=== PATIENT | male | born 1945 | race Caucasian/White ===

== ENCOUNTER 2021-06-03 15:34 | Inpatient (IN) ==
[2021-06-03] MEDS ORDERED: TUSSIONEX PENNKINETIC SUSP PO PRN (16:28)
[2021-06-03] MEDS ORDERED: ACCUNEB 1.25 MG NEBULE ONE (16:44)
[2021-06-03] MEDS: ACCUNEB 1.25 MG NEBULE NEB SCH ×2 (16:45→21:00)
[2021-06-03] MEDS ORDERED: VIBRAMYCIN 100 MG in NS 100 ML IV + SPIKE MINIBAG* 100 ML IV SCH (17:00)
[2021-06-03] MEDS ORDERED: ROCEPHIN 1 GRAM IV PREMIX 1 G/50 ML IV.SOLN. IV SCH (17:00)
[2021-06-03 17:26] LABS: BASOPHILS % (AUTO) 0.3 % (0.2-1.0); EOSINOPHILS # (AUTO) 0.1 x10^3/uL (0.0-0.2); EOSINOPHILS % (AUTO) 0.9 % (0.9-2.9); HEMOGLOBIN 14.5 g/dL (13.5-18.0); LYMPHOCYTES # (AUTO) 0.6 X10^3/uL (1.3-2.9); LYMPHOCYTES % (AUTO) 7.3 % (21.0-51.0); MEAN CORPUSCULAR HEMOGLOBIN 31.4 pg (27.0-34.0); MEAN CORPUSCULAR HGB CONC 33.8 g/dL (33.0-35.0); MEAN CORPUSCULAR VOLUME 92.8 fL (80.0-100.0); MONOCYTES # (AUTO) 0.6 x10^3/uL (0.3-0.8); MONOCYTES % (AUTO) 6.7 % (0.0-13.0); NEUTROPHILS # (AUTO) 7.5 x10^3/uL (2.2-4.8); NEUTROPHILS % (AUTO) 84.8 % (42.0-75.0); PLATELET COUNT 208 X10^3/uL (150.0-450.0); RED BLOOD COUNT 4.63 X10^6/uL (4.7-6.0); RED CELL DISTRIBUTION WIDTH 14.3 % (11.6-16.5); WHITE BLOOD COUNT 8.8 X10^3/uL (3.6-10.0)
[2021-06-03 17:42] LABS: LACTIC ACID 1.7 mmol/L (0.4-2.0)
[2021-06-03 17:52] LABS: ALANINE AMINOTRANSFERASE 26 Units/L (12-78); ALBUMIN 3.1 g/dL (3.4-5.0); ALKALINE PHOSPHATASE 72 Units/L (46-116); ASPARTATE AMINO TRANSFERASE 23 Units/L (15-37); BLOOD UREA NITROGEN 7 mg/dL (7-18); CHLORIDE 102 mmol/L (98-107); COR CA(FOR HYPOALB) 9.7 mg/dL (8.5-10.1); CREATININE 0.79 mg/dL (0.70-1.30); SODIUM 143 mmol/L (136-145); eGFR NON BLACK RACES > 60 (>60)
[2021-06-03 17:53] LABS: CKMB % 4.1 % (<4); CREATINE KINASE 39 Units/L (39-308); CREATINE KINASE MB 1.6 ng/mL (0-4.0); TROPONIN I < 0.02 ng/mL (0-1.5)
[2021-06-03 18:02] VITALS: BMI 16.6
[2021-06-03] MEDS ORDERED: NS 1/2 1000 ML IV 1,000 ML IV ONE (18:13)
[2021-06-03] MEDS: NS 1/2 1000 ML IV 1,000 ML IV SCH (18:15)
[2021-06-03] MEDS: ROBITUSSIN DM PO SCH ×2 (18:15→20:12)
[2021-06-03] MEDS: VSL#3 PO SCH (18:15)
[2021-06-03] MEDS: LEVAQUIN PREMIX IV 750 MG 750 MG/150 ML BAG IV SCH (18:23)
[2021-06-03] MEDS ORDERED: K-RIDER 10 MEQ/NS 100 ML 10 MEQ/100 ML BAG IV PRN (18:28)
[2021-06-03] MEDS ORDERED: MAGNESIUM SULFATE 1 GRAM/100 mL PREMIX 1 G/100 ML BAG IV PRN (18:28)
[2021-06-03] MEDS ORDERED: POTASSIUM CHLORIDE LIQ 20 MEQ UDC PO PRN (18:28)
[2021-06-03] MEDS ORDERED: POTASSIUM CHL 60 MEQ/NS 0.45% 500 ML IV PRN (18:28)
[2021-06-03] MEDS ORDERED: KLOR-CON PO PRN (18:28)
[2021-06-03] MEDS ORDERED: POTASSIUM CHL 40 MEQ/NS 0.45% 500 ML IV PRN (18:28)
[2021-06-03] MEDS ORDERED: MICRO K EXTEN CAP 10 MEQ PO PRN (18:28)
[2021-06-03] MEDS ORDERED: LOVENOX INJ 30 MG SYR SC ONE (19:46)
[2021-06-03] MEDS: LOVENOX INJ 30 MG SYR SC SCH (20:11)
[2021-06-03] MEDS: K-DUR TAB 20 MEQ PO PRN (20:11)
[2021-06-03] MEDS: FORTAZ or TAZICEF VIAL INJ 1 G in NS 100 ML IV + SPIKE MINIBAG* 100 ML IV SCH (20:12)
[2021-06-03] MEDS: MUCOMYST (RESPIRATORY USE ONLY) NEB SCH (21:00)
[2021-06-03] MEDS: PULMICORT NEB TX 0.5 MG NEB SCH (21:00)
[2021-06-03] MEDS ORDERED: MUCOMYST (RESPIRATORY USE ONLY) NEB SCH (21:00)
[2021-06-03] MEDS: TYLENOL 325 MG TAB PO PRN (21:20)
[2021-06-03 22:15] LABS: BILIRUBIN,URINE NEGATIVE (NEGATIVE); BLOOD/HEMOGLOBIN,URINE NEGATIVE (NEGATIVE); GLUCOSE, URINE NEGATIVE (NEGATIVE); KETONES,URINE NEGATIVE (NEGATIVE); LEUKOCYTE ESTERASE ,URINE NEGATIVE (NEGATIVE); NITRITES,URINE NEGATIVE (NEGATIVE); PROTEIN,URINE NEGATIVE (NEGATIVE); UROBILINOGEN,URINE NORMAL (NORMAL)
[2021-06-03 22:18] LABS: APPEARANCE,URINE CLEAR (CLEAR); COLOR,URINE YELLOW (YELLOW)
[2021-06-04 01:41] LABS: CKMB % 3.8 % (<4); CREATINE KINASE 29 Units/L (39-308); CREATINE KINASE MB 1.1 ng/mL (0-4.0); TROPONIN I < 0.02 ng/mL (0-1.5)
[2021-06-04] MEDS ORDERED: NS 1/2 1000 ML IV 1,000 ML IV ONE (05:00)
[2021-06-04] MEDS: FORTAZ or TAZICEF VIAL INJ 1 G in NS 100 ML IV + SPIKE MINIBAG* 100 ML IV SCH ×3 (05:15→21:40)
[2021-06-04] MEDS: NS 1/2 1000 ML IV 1,000 ML IV SCH ×2 (05:15→06:24)
[2021-06-04 05:45] LABS: ALANINE AMINOTRANSFERASE 20 Units/L (12-78); ALBUMIN 2.4 g/dL (3.4-5.0); ALKALINE PHOSPHATASE 57 Units/L (46-116); ASPARTATE AMINO TRANSFERASE 22 Units/L (15-37); BASOPHILS % (AUTO) 0.6 % (0.2-1.0); BLOOD UREA NITROGEN 6 mg/dL (7-18); CALCIUM 8.2 mg/dL (8.5-10.1); CARBON DIOXIDE 34.6 mmol/L (21-32); CHLORIDE 103 mmol/L (98-107); COR CA(FOR HYPOALB) 9.5 mg/dL (8.5-10.1); EOSINOPHILS # (AUTO) 0.1 x10^3/uL (0.0-0.2); EOSINOPHILS % (AUTO) 1.6 % (0.9-2.9); HEMATOCRIT 35.5 % (42.0-54.0); LYMPHOCYTES # (AUTO) 0.6 X10^3/uL (1.3-2.9); LYMPHOCYTES % (AUTO) 10.2 % (21.0-51.0); MEAN CORPUSCULAR HEMOGLOBIN 31.3 pg (27.0-34.0); MEAN CORPUSCULAR HGB CONC 34.2 g/dL (33.0-35.0); MEAN CORPUSCULAR VOLUME 91.6 fL (80.0-100.0); MEAN PLATELET VOLUME 7.9 fL (7.4-11.0); MONOCYTES # (AUTO) 0.5 x10^3/uL (0.3-0.8); MONOCYTES % (AUTO) 8.8 % (0.0-13.0); NEUTROPHILS # (AUTO) 4.7 x10^3/uL (2.2-4.8); NEUTROPHILS % (AUTO) 78.8 % (42.0-75.0); PLATELET COUNT 168 X10^3/uL (150.0-450.0); RED BLOOD COUNT 3.88 X10^6/uL (4.7-6.0); RED CELL DISTRIBUTION WIDTH 14.1 % (11.6-16.5); SODIUM 139 mmol/L (136-145); TOTAL PROTEIN 5.7 g/dL (6.4-8.2); eGFR NON BLACK RACES > 60 (>60)
[2021-06-04] MEDS: MUCOMYST (RESPIRATORY USE ONLY) NEB SCH ×3 (06:05→20:12)
[2021-06-04] MEDS: ACCUNEB 1.25 MG NEBULE NEB SCH ×3 (06:05→20:12)
--- NOTE | 2021-06-04 06:16 | RAD ---
HISTORYPneumoniaSTUDYPortable AP [id number]/2020FINDINGSNormal heart size, pulmonary hyperexpansion. Findings suggest bilateral perihilar infiltrates, the appearance accentuated by significant patient rotation. No dominant mass, lobar consolidation or pleural fluid.IMPRESSIONContinued findings of COPD with suggestion of perihilar infiltrates, left greater than right. Follow-up recommended.Electronically signed by: DAVY OWENS (Jun 04, 2021 06:14:37)
[2021-06-04 06:19] LABS: HEMOGLOBIN 12.1 g/dL (13.5-18.0)
[2021-06-04] MEDS: TYLENOL 325 MG TAB PO PRN (08:15)
[2021-06-04] MEDS: LEVAQUIN PREMIX IV 750 MG 750 MG/150 ML BAG IV SCH (09:13)
[2021-06-04] MEDS: LOVENOX INJ 30 MG SYR SC SCH ×2 (09:14→20:55)
[2021-06-04] MEDS: VSL#3 PO SCH (09:14)
[2021-06-04] MEDS: ROBITUSSIN DM PO SCH ×4 (09:14→20:55)
[2021-06-04 09:37] LABS: CKMB % 4.3 % (<4); CREATINE KINASE 30 Units/L (39-308); CREATINE KINASE MB 1.3 ng/mL (0-4.0); TROPONIN I < 0.02 ng/mL (0-1.5)
[2021-06-04] MEDS: PULMICORT NEB TX 0.5 MG NEB SCH ×2 (09:44→20:12)
[2021-06-04 11:12] LABS: AMYLASE 57 Units/L (25-115); LIPASE 67 Units/L (73-393)
[2021-06-04] MEDS: PROTONIX INJ 40 MG VIAL IVP SCH ×2 (11:19→20:55)
[2021-06-04] MEDS: MORPHINE SULFATE INJ 2 MG INJ IVP PRN ×2 (11:19→20:57)
--- NOTE | 2021-06-04 13:24 | DR.H&P ---
H&P - History & Physical for Day of: H&P Date: 06/03/21 - Chief Complaint Chief Complaint: SEVER MID BACK PAIN, SOB - History of Present Illness History of Present Illness: PT IS 76 WM ADMITTED WITH CO SEVERE MID BACK PAIN. PT STATES HE IS ON HOSPICE FOR COPD, RESP FAILURE. PT DENIES ANY KNOWN CARDIAC DISEASE. PT STATES HE THINKS IT MAY BE HIS GALLBLADDER. PT DENIES ANY FOOD OR DIET CHANGES. DENIES ANY V/D/C. PT HAD COPD WITH ACUTE BRONCHITIS AND PNEUMONIA AT THIS TIME AND HAS TAKEN CIPRO AT HOME WITHOUT IMPROVEMENT. - Past Medical History Past Medical History: Arthritis, COPD - Past Surgical History Surgical History: No History - Family History Family Medical History: Cancer - Social History Does patient currently use any type of tobacco product: No Have you used tobacco products in the last 12 months: No Type of Tobacco Use: Cigarettes Does any household member use tobacco: No Alcohol Use: None Drug Use: None - Medications Home Medications: No Known Drug Allergies Allergy (Verified 06/03/21 17:48) CONTINUE taking the following medications cetirizine 10 mg PO HS 06/04/21 [History] famotidine 40 mg PO BID 06/04/21 [History] finasteride 5 mg PO DAILY 06/04/21 [History] furosemide 20 mg PO DAILY 06/04/21 [History] loratadine 10 mg PO DAILY 06/04/21 [History] tamsulosin 0.4 mg PO HS 06/04/21 [History] theophylline 400 mg PO DAILY 06/04/21 [History] - Review of Systems Constitutional: Weakness Eyes: No Symptoms Reported ENT: No Symptoms Reported Respiratory: Cough, Shortness of Breath Cardiovascular: denies: Edema Gastrointestinal: Nausea Genitourinary: No Symptoms Reported Musculoskeletal: Back Pain Skin: No Symptoms Reported Neurological: No Symptoms Reported - Physical Exam Vital Signs: Temperature 97.5 F Pulse Rate [Left] 89 Pulse Rate 77 Respiratory Rate 21 Blood Pressure [Left Arm] 154/67 Blood Pressure 123/61 O2 Sat by Pulse Oximetry 97 Oriented: Normal Eyes: Normal Ear: Normal Nose: Normal Throat: Dry Respiratory: Diminished Throughout, Rhonchi Throughout Cardiovascular: Normal. negative: Edema Auscultation: Bowel Sounds: Normal Palpation: Normal Tenderness: Epigastric, Mild Skin: Decreased Turgur Musculoskeletal: Back:Thoracic, Back:Lumbar Psychiatric: Anxiety Mood Description: Calm Speech Pattern: Clear, Appropriate - Assessment/Plan (1) Pneumonia Status: Acute Plan: RESP THERAPY, VERIFY HOME MEDICATION. PAIN CONTROL, CT CHEST ABD AND PELVIS. BP MONITORING, EKG AND CARDIAC MONITORING. PPI THERAPY (2) Acute abdominal pain Status: Acute (3) Acute thoracic back pain Status: Acute - Allergies Allergies/Adverse Reactions: Allergies Allergy/AdvReac Type Severity Reaction Status Date / Time No Known Drug Allergies Allergy Verified 06/03/21 17:48
--- NOTE | 2021-06-04 14:04 | CT ---
HISTORYABDOMINAL PAIN, skin cancerSTUDYCT abdomen pelvis without IV contrastCOMPARISONCT 07/1920TECHNIQUEMultiple axial images of the abdomen and pelvis were obtained from the lung bases to the pubic symphysis without the administration of IV contrast. Dose reduction techniques including Automated Exposure Control (AEC) and adjustment of mA and kV were utilized.FINDINGSThe visualized portions of the lung bases suggest COPD and mild atelectasis.The liver and spleen display no abnormalities.Gallbladder appears normal. No biliary ductal dilation.No pancreatic abnormality is seen.The adrenal glands appear normal.Dense renal medulla can be due to hyper osmolality the urine. Papillary necrosis, high caffeine intake, antibiotic therapy are other possible etiologies. Medullary sponge kidney cannot. In a similar fashion. This appearance is similar to prior study. No hydronephrosis or renal stone. Phleboliths are seen in the pelvis. Ureters and bladder appear normal.Prominent right-sided constipation. Mild gaseous distention of the transverse colon with decompressed descending colon and sigmoid colon. An obstructing colonic lesion is not identified. No suggestion of enteritis or colitis. No small bowel dilation but there is mild increased fluid and air in the small bowel. This could be passage of fluid bolus or could be from gastroenteritis. No suggestion of appendicitis.Prostate gland measures 4.5 x 4.3 x 3.6 cm there is mild mass impression upon the base of the urinary bladder. Likely tiny left inguinal hernia containing fat.Abdominal aorta is normal in size. Diffuse atherosclerotic changes are seen in the abdomen and pelvis. Possible hemodynamically significant stenoses are seen in common and external iliac arteries.No suspicious lymphadenopathy.No free intraperitoneal air or fluid is seen.There is 50 percent central and anterior compression deformity of L4 which is a changed appearance since prior study. It could be acute. Slight displacement of the posterior cortex into the central canal and posterior osteophytes at L3-4 cause moderate stenosis. More prominent stenosis is seen at L4-5 due to posterior element hypertrophy and mild spondylolisthesis. Moderate compression deformity of L1 is old. Bones are osteopenic.IMPRESSIONProminent right-sided constipation. Mild gastroenteritis changes are not excluded.Chronic appearance of hyperdense renal medulla that is most likely due to increased urine osmolality. Other etiologies are not excluded.Prominent spondylosis at L4-5. Possibly new, 50 percent compression deformity of L4.Electronically signed by: Adrian Schmitz (Jun 04, 2021 14:01:18)
--- NOTE | 2021-06-04 15:07 | CT ---
HISTORYSOB, COUGH, PAIN IN SHOULDERSSTUDYCT chest with IV contrastCOMPARISONChest x-ray 06/04/2021TECHNIQUEMultiple axial images of the chest were obtained from the thoracic inlet to the upper abdomenwithout the administration of IV contrast. Sagittal and coronal reformations are performed. Dose reduction techniques including Automated Exposure Control (AEC) and adjustment of mA and kV were utilized.FINDINGSMild right apical scarring is seen with slight nodularity that measures 4.0 mm in average axial dimension. Less prominent left apical scarring is seen. Associated with the right major fissure, there is an 8.0 mm nodular density that could be true nodule or atelectasis. Calcified granuloma are seen in the left lung base. In the left pulmonary fissure there is a 7.5 mm nodule as well as 2 other much smaller nodules.There is a mass abutting the medial pleura in the left upper lobe. It measures 6.0 x 3.1 cm. There are increased interstitial densities in the right upper lobe adjacent to this region. This is concerning for interstitial spread of malignancy. Radiation changes could cause a similar appearance.Minimal localized interstitial densities are seen in the right lower lobe. No honeycombing or bronchiectasis is seen. Minimal atelectasis is seen in both CP angles. Trace pleural effusions are seen.Heart and thoracic aorta are normal in size. No mediastinal or hilar lymphadenopathy is seen on this unenhanced study. No adrenal nodule is seen.There are multiple compression fractures. Likely old 25 percent compression deformity of L1 is seen. Likely old 15 percent compression deformity of T11 is seen. Probably old 30 percent compression deformity of T9 is seen. 60 percent compression fracture of T8 is probably old, as is 40 percent compression fracture of T7.Mild central compression deformity of T6 could be recent or old. There is approximately 15 percent loss of height. Greater central compression deformity of T5 is seen with 70 percent loss of height but this is probably old. Mostly healed fracture of the anterior aspect of the left 9th rib is seen anteriorly. Bones are osteopenic.IMPRESSIONLikely multiple osteoporotic compression fractures in the thoracic spine. These are mostly old in appearance but the fracture of T6 could be recent or old.Probable primary lung cancer medially in the left upper lobe of the lungs. Adjacent interstitial densities could be from interstitial spread of malignancy. Radiation changes could cause a similar appearance if patient has had prior radiation to this area.Several other nodular densities in the lungs are indeterminate for metastatic disease.Prominent COPD is seen.Electronically signed by: Adrian Schmitz (Jun 04, 2021 15:05:58)
[2021-06-05] MEDS ORDERED: NS 1/2 1000 ML IV 1,000 ML IV ONE (05:31)
[2021-06-05] MEDS: MUCOMYST (RESPIRATORY USE ONLY) NEB SCH ×3 (05:50→20:45)
[2021-06-05] MEDS: ACCUNEB 1.25 MG NEBULE NEB SCH ×3 (05:50→20:45)
[2021-06-05] MEDS: FORTAZ or TAZICEF VIAL INJ 1 G in NS 100 ML IV + SPIKE MINIBAG* 100 ML IV SCH ×3 (06:28→21:50)
[2021-06-05] MEDS: NS 1/2 1000 ML IV 1,000 ML IV SCH ×2 (06:28→11:09)
[2021-06-05 06:30] LABS: BASOPHILS % (AUTO) 0.5 % (0.2-1.0); EOSINOPHILS # (AUTO) 0.1 x10^3/uL (0.0-0.2); EOSINOPHILS % (AUTO) 1.8 % (0.9-2.9); HEMATOCRIT 34.9 % (42.0-54.0); HEMOGLOBIN 11.8 g/dL (13.5-18.0); LYMPHOCYTES # (AUTO) 0.5 X10^3/uL (1.3-2.9); LYMPHOCYTES % (AUTO) 9.9 % (21.0-51.0); MEAN CORPUSCULAR HEMOGLOBIN 31.1 pg (27.0-34.0); MEAN CORPUSCULAR HGB CONC 33.9 g/dL (33.0-35.0); MEAN CORPUSCULAR VOLUME 91.6 fL (80.0-100.0); MEAN PLATELET VOLUME 8.1 fL (7.4-11.0); MONOCYTES # (AUTO) 0.5 x10^3/uL (0.3-0.8); MONOCYTES % (AUTO) 9.1 % (0.0-13.0); NEUTROPHILS # (AUTO) 4.2 x10^3/uL (2.2-4.8); NEUTROPHILS % (AUTO) 78.7 % (42.0-75.0); PLATELET COUNT 161 X10^3/uL (150.0-450.0); RED BLOOD COUNT 3.81 X10^6/uL (4.7-6.0); WHITE BLOOD COUNT 5.3 X10^3/uL (3.6-10.0)
[2021-06-05 06:41] LABS: ALANINE AMINOTRANSFERASE 18 Units/L (12-78); ALBUMIN 2.3 g/dL (3.4-5.0); ALKALINE PHOSPHATASE 59 Units/L (46-116); ASPARTATE AMINO TRANSFERASE 20 Units/L (15-37); BLOOD UREA NITROGEN 4 mg/dL (7-18); CALCIUM 8.3 mg/dL (8.5-10.1); CARBON DIOXIDE 35.9 mmol/L (21-32); CHLORIDE 101 mmol/L (98-107); COR CA(FOR HYPOALB) 9.7 mg/dL (8.5-10.1); CREATININE 0.54 mg/dL (0.70-1.30); SODIUM 138 mmol/L (136-145); TOTAL PROTEIN 5.4 g/dL (6.4-8.2); eGFR NON BLACK RACES > 60 (>60)
[2021-06-05] MEDS: MORPHINE SULFATE INJ 2 MG INJ IVP PRN ×2 (09:50→20:31)
[2021-06-05] MEDS: PROTONIX INJ 40 MG VIAL IVP SCH ×2 (09:57→21:50)
[2021-06-05] MEDS: LOVENOX INJ 30 MG SYR SC SCH ×2 (09:57→21:49)
[2021-06-05] MEDS: VSL#3 PO SCH (09:58)
[2021-06-05] MEDS: ROBITUSSIN DM PO SCH ×4 (09:58→21:50)
[2021-06-05] MEDS: LEVAQUIN PREMIX IV 750 MG 750 MG/150 ML BAG IV SCH (09:58)
[2021-06-05] MEDS: PULMICORT NEB TX 0.5 MG NEB SCH ×2 (10:40→20:45)
[2021-06-05] MEDS: K-DUR TAB 20 MEQ PO PRN (12:33)
--- NOTE | 2021-06-05 16:32 | PCM.PROG ---
Progress Note Progress Note for Day of Date of Exam: 06/05/21 Subjective Subjective: Feels better. Breathing better. Past Medical Family Social History Past Med/Fam/Surg Hx: No changes since H&P Allergies: Allergies No Known Drug Allergies Allergy (Verified 06/03/21 17:48) Review of Systems ROS: No change since H&P Vital Signs and I&O's Vital Signs: Temperature 98.2 F Pulse Rate [Left] 82 Pulse Rate 79 Respiratory Rate 22 Blood Pressure [Left Arm] 106/65 Blood Pressure 123/61 O2 Sat by Pulse Oximetry 96 Intake and Output: Intake & Output 06/03/21 06/04/21 06/05/21 06/06/21 11:59 11:59 11:59 11:59 Intake Total 1295 / 1295 3092 / 3092 Balance 1295 / 1295 3092 / 3092 Physical Exam Oriented: Normal Eyes: Normal Throat: Dry Cardiovascular: Normal; negative Edema Auscultation: Bowel Sounds: Normal Tenderness: Epigastric and Mild Skin: Decreased Turgur Musculoskeletal: Back:Thoracic and Back:Lumbar Psychiatric: Anxiety Mood Description: Calm Speech Pattern: Clear and Appropriate Laboratory and Diagnostics Result Diagrams: 06/05/21 05:42 06/05/21 05:42 Labs: 06/03/21 16:59 Blood Blood Culture - Preliminary 06/03/21 16:54 Blood Blood Culture - Preliminary 06/03/21 16:33 Sputum - Expectorated Sputum Sputum Culture - Final 06/03/21 16:33 Sputum - Expectorated Sputum - Final Laboratory WBC 5.3 X10^3/uL (3.6-10.0) 06/05/21 05:42 RBC 3.81 X10^6/uL (4.7-6.0) L 06/05/21 05:42 Hgb 11.8 g/dL (13.5-18.0) L 06/05/21 05:42 Hct 34.9 % (42.0-54.0) L 06/05/21 05:42 MCV 91.6 fL (80.0-100.0) 06/05/21 05:42 MCH 31.1 pg (27.0-34.0) 06/05/21 05:42 MCHC 33.9 g/dL (33.0-35.0) 06/05/21 05:42 RDW 14.0 % (11.6-16.5) 06/05/21 05:42 Plt Count 161 X10^3/uL (150.0-450.0) 06/05/21 05:42 MPV 8.1 fL (7.4-11.0) 06/05/21 05:42 Neut % (Auto) 78.7 % (42.0-75.0) H 06/05/21 05:42 Lymph % (Auto) 9.9 % (21.0-51.0) L 06/05/21 05:42 [place] % (Auto) 9.1 % (0.0-13.0) 06/05/21 05:42 Eos % (Auto) 1.8 % (0.9-2.9) 06/05/21 05:42 Baso % (Auto) 0.5 % (0.2-1.0) 06/05/21 05:42 Neut # (Auto) 4.2 x10^3/uL (2.2-4.8) 06/05/21 05:42 Lymph # (Auto) 0.5 X10^3/uL (1.3-2.9) L 06/05/21 05:42 [place] # (Auto) 0.5 x10^3/uL (0.3-0.8) 06/05/21 05:42 Eos # (Auto) 0.1 x10^3/uL (0.0-0.2) 06/05/21 05:42 Baso # (Auto) 0.0 X10^3/uL (0.0-0.1) 06/05/21 05:42 Absolute Nucleated RBC 0.1 /100WBC 06/05/21 05:42 PT 12.3 SECONDS (11.8-14.3) 06/03/21 16:54 INR Target Range - 06/03/21 16:54 INR 0.96 (0.8-1.3) 06/03/21 16:54 Sodium 138 mmol/L (136-145) 06/05/21 05:42 Corrected Sodium TNP 06/05/21 05:42 Potassium 3.5 mmol/L (3.5-5.1) 06/05/21 05:42 Chloride 101 mmol/L (98-107) 06/05/21 05:42 Carbon Dioxide 35.9 mmol/L (21-32) H 06/05/21 05:42 BUN 4 mg/dL (7-18) L 06/05/21 05:42 Creatinine 0.54 mg/dL (0.70-1.30) L 06/05/21 05:42 Est GFR (MDRD) Af Amer > 60 (>60) 06/05/21 05:42 Est GFR (MDRD) Non-Af > 60 (>60) 06/05/21 05:42 Glucose 77 mg/dL (65-99) 06/05/21 05:42 Lactic Acid 1.7 mmol/L (0.4-2.0) 06/03/21 16:54 Calcium 8.3 mg/dL (8.5-10.1) L 06/05/21 05:42 Corrected Calcium 9.7 mg/dL (8.5-10.1) 06/05/21 05:42 Magnesium 2.0 mg/dL (1.7-2.9) 06/04/21 05:23 Total Bilirubin 0.20 mg/dL (0.2-1.0) 06/05/21 05:42 AST 20 Units/L (15-37) 06/05/21 05:42 ALT 18 Units/L (12-78) 06/05/21 05:42 Alkaline Phosphatase 59 Units/L (46-116) 06/05/21 05:42 Creatine Kinase 30 Units/L (39-308) L 06/04/21 09:09 CK-MB (CK-2) 1.3 ng/mL (0-4.0) 06/04/21 09:09 CK/CKMB % Calc 4.3 % (<4) 06/04/21 09:09 Troponin I < 0.02 ng/mL (0-1.5) 06/04/21 09:09 Total Protein 5.4 g/dL (6.4-8.2) L 06/05/21 05:42 Albumin 2.3 g/dL (3.4-5.0) L 06/05/21 05:42 Globulin 3.1 g/dL (2.5-4.5) 06/05/21 05:42 Albumin/Globulin Ratio 0.7 Ratio (1.1-2.1) L 06/05/21 05:42 Amylase 57 Units/L (25-115) 06/04/21 09:09 Lipase 67 Units/L (73-393) L 06/04/21 09:09 Specimen Type Clean catch urine 06/03/21 21:40 Urine Color Yellow (YELLOW) 06/03/21 21:40 Urine Appearance Clear (CLEAR) 06/03/21 21:40 Urine pH 5.0 (5.0 - 8.0) 06/03/21 21:40 Ur Specific [place] 1.020 (1.000-1.030) 06/03/21 21:40 Urine Protein Negative (NEGATIVE) 06/03/21 21:40 Urine Glucose (UA) Negative (NEGATIVE) 06/03/21 21:40 Urine Ketones Negative (NEGATIVE) 06/03/21 21:40 Urine Occult Blood Negative (NEGATIVE) 06/03/21 21:40 Urine Nitrite Negative (NEGATIVE) 06/03/21 21:40 Urine Bilirubin Negative (NEGATIVE) 06/03/21 21:40 Urine Urobilinogen Normal (NORMAL) 06/03/21 21:40 Ur Leukocyte Esterase Negative (NEGATIVE) 06/03/21 21:40 Radiology Reviewed: Yes Plan (1) Pneumonia: Status: Acute Plan: Continue Fortaz and Levaquin. CXR in am. (2) Lung nodules: Status: Acute Narrative Support Text: Possible Primary Lung cancer with possible mets. Plan: Patient and his family informed. They will discuss with Dr. Rios. (3) Acute abdominal pain: Status: Acute (4) Acute thoracic back pain: Status: Acute
[2021-06-05] MEDS: COLACE CAP 100 MG PO SCH (21:49)
[2021-06-05] MEDS: MILK OF MAGNESIA PO SCH (21:50)
[2021-06-06] MEDS ORDERED: NS 1/2 1000 ML IV 1,000 ML IV ONE ×2 (02:41→21:40)
[2021-06-06] MEDS: NS 1/2 1000 ML IV 1,000 ML IV SCH ×3 (03:13→22:39)
[2021-06-06] MEDS: ACCUNEB 1.25 MG NEBULE NEB SCH ×3 (05:52→20:52)
[2021-06-06] MEDS: MUCOMYST (RESPIRATORY USE ONLY) NEB SCH ×3 (05:52→20:52)
[2021-06-06] MEDS: FORTAZ or TAZICEF VIAL INJ 1 G in NS 100 ML IV + SPIKE MINIBAG* 100 ML IV SCH ×3 (05:52→21:34)
[2021-06-06 06:54] LABS: BASOPHILS % (AUTO) 0.4 % (0.2-1.0); EOSINOPHILS # (AUTO) 0.1 x10^3/uL (0.0-0.2); EOSINOPHILS % (AUTO) 1.9 % (0.9-2.9); HEMOGLOBIN 11.7 g/dL (13.5-18.0); LYMPHOCYTES # (AUTO) 0.6 X10^3/uL (1.3-2.9); LYMPHOCYTES % (AUTO) 12.5 % (21.0-51.0); MEAN CORPUSCULAR HGB CONC 33.5 g/dL (33.0-35.0); MEAN CORPUSCULAR VOLUME 92.7 fL (80.0-100.0); MEAN PLATELET VOLUME 8.1 fL (7.4-11.0); MONOCYTES # (AUTO) 0.5 x10^3/uL (0.3-0.8); NEUTROPHILS # (AUTO) 3.6 x10^3/uL (2.2-4.8); NEUTROPHILS % (AUTO) 75.2 % (42.0-75.0); PLATELET COUNT 158 X10^3/uL (150.0-450.0); RED BLOOD COUNT 3.78 X10^6/uL (4.7-6.0); RED CELL DISTRIBUTION WIDTH 13.9 % (11.6-16.5); WHITE BLOOD COUNT 4.8 X10^3/uL (3.6-10.0)
[2021-06-06 07:06] LABS: ALANINE AMINOTRANSFERASE 17 Units/L (12-78); ALBUMIN 2.2 g/dL (3.4-5.0); ALKALINE PHOSPHATASE 59 Units/L (46-116); ASPARTATE AMINO TRANSFERASE 23 Units/L (15-37); BLOOD UREA NITROGEN 4 mg/dL (7-18); CALCIUM 8.2 mg/dL (8.5-10.1); CARBON DIOXIDE 36.8 mmol/L (21-32); CHLORIDE 101 mmol/L (98-107); COR CA(FOR HYPOALB) 9.6 mg/dL (8.5-10.1); CREATININE 0.48 mg/dL (0.70-1.30); SODIUM 139 mmol/L (136-145); TOTAL PROTEIN 5.3 g/dL (6.4-8.2); eGFR NON BLACK RACES > 60 (>60)
--- NOTE | 2021-06-06 07:10 | RAD ---
HISTORYCOPD EXACSTUDYCHEST, 1 [id number]/08/2021FINDINGSThe cardiomediastinal silhouette is stable. Chronic appearing interstitial markings. Faint bibasilar airspace opacities. The bony thorax appears intact.IMPRESSIONBibasilar airspace opacities which may reflect is atelectasis or pneumonia.Electronically signed by: ALVIN MOHR (Jun 06, 2021 07:08:19)
[2021-06-06] MEDS: PULMICORT NEB TX 0.5 MG NEB SCH ×2 (08:15→20:52)
[2021-06-06] MEDS: LEVAQUIN PREMIX IV 750 MG 750 MG/150 ML BAG IV SCH (09:30)
[2021-06-06] MEDS: LOVENOX INJ 30 MG SYR SC SCH ×2 (09:30→21:42)
[2021-06-06] MEDS: PROTONIX INJ 40 MG VIAL IVP SCH ×2 (09:30→21:34)
[2021-06-06] MEDS: MILK OF MAGNESIA PO SCH ×2 (09:30→21:33)
[2021-06-06] MEDS: ROBITUSSIN DM PO SCH ×4 (09:30→21:34)
[2021-06-06] MEDS: VSL#3 PO SCH (09:30)
[2021-06-06] MEDS: MORPHINE SULFATE INJ 2 MG INJ IVP PRN ×2 (12:56→21:34)
--- NOTE | 2021-06-06 14:23 | PCM.PROG ---
Progress Note Progress Note for Day of Date of Exam: 06/06/21 Subjective Subjective: Feels better. Breathing better. No new complaints. Past Medical Family Social History Past Med/Fam/Surg Hx: No changes since H&P Allergies: Allergies No Known Drug Allergies Allergy (Verified 06/03/21 17:48) Review of Systems ROS: No change since H&P Vital Signs and I&O's Vital Signs: Temperature 98.5 F Pulse Rate [Left] 82 Pulse Rate 69 Respiratory Rate 26 Blood Pressure [Left Arm] 102/55 Blood Pressure 123/61 O2 Sat by Pulse Oximetry 96 Intake and Output: Intake & Output 06/04/21 06/05/21 06/06/21 06/07/21 11:59 11:59 11:59 11:59 Intake Total 1295 / 1295 3092 / 3092 1536 / 1536 Balance 1295 / 1295 3092 / 3092 1536 / 1536 Physical Exam Oriented: Normal Eyes: Normal Respiratory: Generalized and Rhonchi Cardiovascular: Normal; negative Edema Auscultation: Bowel Sounds: Normal Tenderness: Epigastric and Mild Skin: Decreased Turgur Musculoskeletal: Back:Thoracic and Back:Lumbar Psychiatric: Anxiety Mood Description: Calm Speech Pattern: Clear and Appropriate Laboratory and Diagnostics Result Diagrams: 06/06/21 05:40 06/06/21 05:40 Labs: 06/03/21 16:59 Blood Blood Culture - Preliminary 06/03/21 16:54 Blood Blood Culture - Preliminary 06/03/21 16:33 Sputum - Expectorated Sputum Sputum Culture - Final 06/03/21 16:33 Sputum - Expectorated Sputum - Final Laboratory WBC 4.8 X10^3/uL (3.6-10.0) 06/06/21 05:40 RBC 3.78 X10^6/uL (4.7-6.0) L 06/06/21 05:40 Hgb 11.7 g/dL (13.5-18.0) L 06/06/21 05:40 Hct 35.0 % (42.0-54.0) L 06/06/21 05:40 MCV 92.7 fL (80.0-100.0) 06/06/21 05:40 MCH 31.0 pg (27.0-34.0) 06/06/21 05:40 MCHC 33.5 g/dL (33.0-35.0) 06/06/21 05:40 RDW 13.9 % (11.6-16.5) 06/06/21 05:40 Plt Count 158 X10^3/uL (150.0-450.0) 06/06/21 05:40 MPV 8.1 fL (7.4-11.0) 06/06/21 05:40 Neut % (Auto) 75.2 % (42.0-75.0) H 06/06/21 05:40 Lymph % (Auto) 12.5 % (21.0-51.0) L 06/06/21 05:40 [place] % (Auto) 10.0 % (0.0-13.0) 06/06/21 05:40 Eos % (Auto) 1.9 % (0.9-2.9) 06/06/21 05:40 Baso % (Auto) 0.4 % (0.2-1.0) 06/06/21 05:40 Neut # (Auto) 3.6 x10^3/uL (2.2-4.8) 06/06/21 05:40 Lymph # (Auto) 0.6 X10^3/uL (1.3-2.9) L 06/06/21 05:40 [place] # (Auto) 0.5 x10^3/uL (0.3-0.8) 06/06/21 05:40 Eos # (Auto) 0.1 x10^3/uL (0.0-0.2) 06/06/21 05:40 Baso # (Auto) 0.0 X10^3/uL (0.0-0.1) 06/06/21 05:40 Absolute Nucleated RBC 0.0 /100WBC 06/06/21 05:40 PT 12.3 SECONDS (11.8-14.3) 06/03/21 16:54 INR Target Range - 06/03/21 16:54 INR 0.96 (0.8-1.3) 06/03/21 16:54 Sodium 139 mmol/L (136-145) 06/06/21 05:40 Corrected Sodium TNP 06/06/21 05:40 Potassium 3.7 mmol/L (3.5-5.1) 06/06/21 05:40 Chloride 101 mmol/L (98-107) 06/06/21 05:40 Carbon Dioxide 36.8 mmol/L (21-32) H 06/06/21 05:40 BUN 4 mg/dL (7-18) L 06/06/21 05:40 Creatinine 0.48 mg/dL (0.70-1.30) L 06/06/21 05:40 Est GFR (MDRD) Af Amer > 60 (>60) 06/06/21 05:40 Est GFR (MDRD) Non-Af > 60 (>60) 06/06/21 05:40 Glucose 76 mg/dL (65-99) 06/06/21 05:40 Lactic Acid 1.7 mmol/L (0.4-2.0) 06/03/21 16:54 Calcium 8.2 mg/dL (8.5-10.1) L 06/06/21 05:40 Corrected Calcium 9.6 mg/dL (8.5-10.1) 06/06/21 05:40 Magnesium 2.0 mg/dL (1.7-2.9) 06/04/21 05:23 Total Bilirubin 0.30 mg/dL (0.2-1.0) 06/06/21 05:40 AST 23 Units/L (15-37) 06/06/21 05:40 ALT 17 Units/L (12-78) 06/06/21 05:40 Alkaline Phosphatase 59 Units/L (46-116) 06/06/21 05:40 Creatine Kinase 30 Units/L (39-308) L 06/04/21 09:09 CK-MB (CK-2) 1.3 ng/mL (0-4.0) 06/04/21 09:09 CK/CKMB % Calc 4.3 % (<4) 06/04/21 09:09 Troponin I < 0.02 ng/mL (0-1.5) 06/04/21 09:09 Total Protein 5.3 g/dL (6.4-8.2) L 06/06/21 05:40 Albumin 2.2 g/dL (3.4-5.0) L 06/06/21 05:40 Globulin 3.1 g/dL (2.5-4.5) 06/06/21 05:40 Albumin/Globulin Ratio 0.7 Ratio (1.1-2.1) L 06/06/21 05:40 Amylase 57 Units/L (25-115) 06/04/21 09:09 Lipase 67 Units/L (73-393) L 06/04/21 09:09 Specimen Type Clean catch urine 06/03/21 21:40 Urine Color Yellow (YELLOW) 06/03/21 21:40 Urine Appearance Clear (CLEAR) 06/03/21 21:40 Urine pH 5.0 (5.0 - 8.0) 06/03/21 21:40 Ur Specific [place] 1.020 (1.000-1.030) 06/03/21 21:40 Urine Protein Negative (NEGATIVE) 06/03/21 21:40 Urine Glucose (UA) Negative (NEGATIVE) 06/03/21 21:40 Urine Ketones Negative (NEGATIVE) 06/03/21 21:40 Urine Occult Blood Negative (NEGATIVE) 06/03/21 21:40 Urine Nitrite Negative (NEGATIVE) 06/03/21 21:40 Urine Bilirubin Negative (NEGATIVE) 06/03/21 21:40 Urine Urobilinogen Normal (NORMAL) 06/03/21 21:40 Ur Leukocyte Esterase Negative (NEGATIVE) 06/03/21 21:40 Radiology Reviewed: Yes Plan (1) Pneumonia: Status: Acute Plan: Continue Fortaz and Levaquin. CXR in am. (2) Lung nodules: Status: Acute Narrative Support Text: The CT scan favors a primary Lung cancer diagnosis with possible mets. Plan: Patient and his family informed. They will discuss with Dr. Rios. (3) Acute abdominal pain: Status: Acute (4) Acute thoracic back pain: Status: Acute
[2021-06-06] MEDS: COLACE CAP 100 MG PO SCH (21:33)
[2021-06-07] MEDS: MORPHINE SULFATE INJ 2 MG INJ IVP PRN (05:57)
[2021-06-07] MEDS: NS 1/2 1000 ML IV 1,000 ML IV SCH ×2 (05:57→20:05)
[2021-06-07] MEDS: MUCOMYST (RESPIRATORY USE ONLY) NEB SCH ×3 (06:13→20:28)
[2021-06-07] MEDS: ACCUNEB 1.25 MG NEBULE NEB SCH ×3 (06:13→20:28)
[2021-06-07] MEDS: FORTAZ or TAZICEF VIAL INJ 1 G in NS 100 ML IV + SPIKE MINIBAG* 100 ML IV SCH ×3 (06:37→21:08)
[2021-06-07 06:41] LABS: BASOPHILS % (AUTO) 0.6 % (0.2-1.0); EOSINOPHILS # (AUTO) 0.1 x10^3/uL (0.0-0.2); EOSINOPHILS % (AUTO) 2.3 % (0.9-2.9); HEMOGLOBIN 11.8 g/dL (13.5-18.0); LYMPHOCYTES # (AUTO) 0.8 X10^3/uL (1.3-2.9); LYMPHOCYTES % (AUTO) 18.5 % (21.0-51.0); MEAN CORPUSCULAR HGB CONC 33.8 g/dL (33.0-35.0); MEAN CORPUSCULAR VOLUME 91.8 fL (80.0-100.0); MEAN PLATELET VOLUME 7.7 fL (7.4-11.0); MONOCYTES # (AUTO) 0.5 x10^3/uL (0.3-0.8); MONOCYTES % (AUTO) 11.2 % (0.0-13.0); NEUTROPHILS % (AUTO) 67.4 % (42.0-75.0); PLATELET COUNT 170 X10^3/uL (150.0-450.0); RED BLOOD COUNT 3.81 X10^6/uL (4.7-6.0); WHITE BLOOD COUNT 4.5 X10^3/uL (3.6-10.0)
[2021-06-07 06:51] LABS: ALANINE AMINOTRANSFERASE 20 Units/L (12-78); ALBUMIN 2.3 g/dL (3.4-5.0); ALKALINE PHOSPHATASE 60 Units/L (46-116); ASPARTATE AMINO TRANSFERASE 27 Units/L (15-37); BLOOD UREA NITROGEN 4 mg/dL (7-18); CALCIUM 8.2 mg/dL (8.5-10.1); CHLORIDE 102 mmol/L (98-107); COR CA(FOR HYPOALB) 9.6 mg/dL (8.5-10.1); CREATININE 0.48 mg/dL (0.70-1.30); SODIUM 138 mmol/L (136-145); TOTAL PROTEIN 5.4 g/dL (6.4-8.2); eGFR NON BLACK RACES > 60 (>60)
[2021-06-07] MEDS: MILK OF MAGNESIA PO SCH ×3 (08:34→23:23)
[2021-06-07] MEDS: ROBITUSSIN DM PO SCH ×4 (08:34→21:08)
[2021-06-07] MEDS: PROTONIX INJ 40 MG VIAL IVP SCH ×2 (08:34→21:08)
[2021-06-07] MEDS: VSL#3 PO SCH (08:34)
[2021-06-07] MEDS: LEVAQUIN PREMIX IV 750 MG 750 MG/150 ML BAG IV SCH (08:34)
[2021-06-07] MEDS: LOVENOX INJ 30 MG SYR SC SCH ×2 (08:49→21:08)
[2021-06-07] MEDS: PULMICORT NEB TX 0.5 MG NEB SCH ×2 (08:52→20:28)
[2021-06-07] MEDS ORDERED: ULTRAM PO PRN (10:25)
[2021-06-07] MEDS ORDERED: NS 1/2 1000 ML IV 1,000 ML IV ONE (19:39)
[2021-06-07] MEDS: TORADOL 30 MG VIAL IVP PRN (20:03)
[2021-06-07] MEDS: COLACE CAP 100 MG PO SCH (21:07)
[2021-06-07] MEDS: MIRALAX POWDER (1 DOSE 17 G) PO SCH ×2 (21:21→23:24)
[2021-06-08] MEDS: FORTAZ or TAZICEF VIAL INJ 1 G in NS 100 ML IV + SPIKE MINIBAG* 100 ML IV SCH ×3 (05:42→20:45)
[2021-06-08 05:43] LABS: ABG BASE EXCESS 12.3 mmol/L (-2.0-2.0)
[2021-06-08 05:45] LABS: ABG ALLEN TEST POS; ABG HCO3 38.7 mmol/L (22-26)
[2021-06-08] MEDS: MUCOMYST (RESPIRATORY USE ONLY) NEB SCH ×3 (05:54→20:26)
[2021-06-08] MEDS: ACCUNEB 1.25 MG NEBULE NEB SCH ×3 (05:54→20:26)
[2021-06-08 06:18] LABS: BASOPHILS % (AUTO) 0.9 % (0.2-1.0); EOSINOPHILS # (AUTO) 0.1 x10^3/uL (0.0-0.2); EOSINOPHILS % (AUTO) 3.9 % (0.9-2.9); HEMATOCRIT 34.5 % (42.0-54.0); HEMOGLOBIN 11.6 g/dL (13.5-18.0); LYMPHOCYTES # (AUTO) 0.6 X10^3/uL (1.3-2.9); LYMPHOCYTES % (AUTO) 18.3 % (21.0-51.0); MEAN CORPUSCULAR HEMOGLOBIN 31.4 pg (27.0-34.0); MEAN CORPUSCULAR HGB CONC 33.8 g/dL (33.0-35.0); MEAN PLATELET VOLUME 7.7 fL (7.4-11.0); MONOCYTES # (AUTO) 0.4 x10^3/uL (0.3-0.8); MONOCYTES % (AUTO) 12.4 % (0.0-13.0); NEUTROPHILS # (AUTO) 2.2 x10^3/uL (2.2-4.8); NEUTROPHILS % (AUTO) 64.5 % (42.0-75.0); PLATELET COUNT 144 X10^3/uL (150.0-450.0); RED CELL DISTRIBUTION WIDTH 13.8 % (11.6-16.5); WHITE BLOOD COUNT 3.4 X10^3/uL (3.6-10.0)
--- NOTE | 2021-06-08 06:28 | RAD ---
HISTORYPNEUMONIASTUDYCHEST, 1 [id number]/10/2021.TECHNIQUEAP view of the chestFINDINGSCardiac and mediastinal contours are within normal limits. Lungs are hyperexpanded with stable bibasilar opacities. No definite pleural effusion or pneumothorax. Stable biapical pleural parenchymal scarring.IMPRESSIONCOPD with stable bibasilar opacities suspicious for pneumonia.Electronically signed by: Von Stratton (Jun 08, 2021 06:27:16)
[2021-06-08 06:40] LABS: ALANINE AMINOTRANSFERASE 21 Units/L (12-78); ALBUMIN 2.1 g/dL (3.4-5.0); ALKALINE PHOSPHATASE 60 Units/L (46-116); ASPARTATE AMINO TRANSFERASE 28 Units/L (15-37); BLOOD UREA NITROGEN 3 mg/dL (7-18); CALCIUM 8.2 mg/dL (8.5-10.1); CARBON DIOXIDE 35.7 mmol/L (21-32); CHLORIDE 100 mmol/L (98-107); COR CA(FOR HYPOALB) 9.7 mg/dL (8.5-10.1); CREATININE 0.45 mg/dL (0.70-1.30); SODIUM 138 mmol/L (136-145); eGFR NON BLACK RACES > 60 (>60)
[2021-06-08] MEDS: LEVAQUIN PREMIX IV 750 MG 750 MG/150 ML BAG IV SCH (08:29)
[2021-06-08] MEDS: LOVENOX INJ 30 MG SYR SC SCH ×2 (08:29→20:45)
[2021-06-08] MEDS: PROTONIX INJ 40 MG VIAL IVP SCH ×2 (08:30→20:45)
[2021-06-08] MEDS: ROBITUSSIN DM PO SCH ×4 (08:30→20:45)
[2021-06-08] MEDS: VSL#3 PO SCH (08:30)
[2021-06-08] MEDS: MILK OF MAGNESIA PO SCH (08:30)
[2021-06-08] MEDS: MORPHINE SULFATE INJ 2 MG INJ IVP PRN (08:32)
[2021-06-08] MEDS: PULMICORT NEB TX 0.5 MG NEB SCH ×2 (09:10→20:26)
[2021-06-08] MEDS: NS 1/2 1000 ML IV 1,000 ML IV SCH ×2 (09:15→16:23)
[2021-06-08] MEDS: CELEBREX PO SCH ×2 (12:09→20:30)
[2021-06-08] MEDS ORDERED: NS 1/2 1000 ML IV 1,000 ML IV ONE (16:12)
[2021-06-08] MEDS: COLACE CAP 100 MG PO SCH (20:45)
[2021-06-08] MEDS: TORADOL 30 MG VIAL IVP PRN (22:05)
[2021-06-09] MEDS: MILK OF MAGNESIA PO SCH ×3 (00:40→20:45)
[2021-06-09] MEDS: MIRALAX POWDER (1 DOSE 17 G) PO SCH ×2 (00:40→20:45)
[2021-06-09] MEDS: FORTAZ or TAZICEF VIAL INJ 1 G in NS 100 ML IV + SPIKE MINIBAG* 100 ML IV SCH ×3 (05:10→22:08)
[2021-06-09] MEDS: MUCOMYST (RESPIRATORY USE ONLY) NEB SCH ×2 (05:29→20:27)
[2021-06-09] MEDS: ACCUNEB 1.25 MG NEBULE NEB SCH ×3 (05:29→20:27)
--- NOTE | 2021-06-09 05:51 | RAD ---
PROCEDURE: Chest X-ray 1 View .HISTORY: Dyspnea.TECHNIQUE: AP view.COMPARISON: 06/08/2021.TECHNICAL QUALITY: Satisfactory .FINDINGS:Micro cardia related to patient's emphysema.Normal central vascularity.Bibasilar consolidation mildly increased compared to previous study. Unchanged hyper expansion and hyperlucency of the lungs. No pleural fluid or pneumothorax.IMPRESSION:1. Mild increase in bibasilar pneumonia.2. COPD.Electronically signed by: Eduardo Mckinney (Jun 09, 2021 05:49:42)
[2021-06-09 06:18] LABS: BASOPHILS % (AUTO) 0.3 % (0.2-1.0); EOSINOPHILS # (AUTO) 0.2 x10^3/uL (0.0-0.2); EOSINOPHILS % (AUTO) 4.8 % (0.9-2.9); HEMATOCRIT 33.8 % (42.0-54.0); HEMOGLOBIN 11.4 g/dL (13.5-18.0); LYMPHOCYTES # (AUTO) 0.5 X10^3/uL (1.3-2.9); LYMPHOCYTES % (AUTO) 14.9 % (21.0-51.0); MEAN CORPUSCULAR HEMOGLOBIN 31.3 pg (27.0-34.0); MEAN CORPUSCULAR HGB CONC 33.8 g/dL (33.0-35.0); MEAN CORPUSCULAR VOLUME 92.5 fL (80.0-100.0); MEAN PLATELET VOLUME 7.9 fL (7.4-11.0); MONOCYTES # (AUTO) 0.4 x10^3/uL (0.3-0.8); MONOCYTES % (AUTO) 10.7 % (0.0-13.0); NEUTROPHILS # (AUTO) 2.4 x10^3/uL (2.2-4.8); NEUTROPHILS % (AUTO) 69.3 % (42.0-75.0); PLATELET COUNT 156 X10^3/uL (150.0-450.0); RED BLOOD COUNT 3.66 X10^6/uL (4.7-6.0); RED CELL DISTRIBUTION WIDTH 13.7 % (11.6-16.5); WHITE BLOOD COUNT 3.5 X10^3/uL (3.6-10.0)
[2021-06-09 06:32] LABS: ALANINE AMINOTRANSFERASE 19 Units/L (12-78); ALKALINE PHOSPHATASE 61 Units/L (46-116); ASPARTATE AMINO TRANSFERASE 24 Units/L (15-37); BLOOD UREA NITROGEN 4 mg/dL (7-18); CALCIUM 8.2 mg/dL (8.5-10.1); CARBON DIOXIDE 35.8 mmol/L (21-32); CHLORIDE 102 mmol/L (98-107); COR CA(FOR HYPOALB) 9.8 mg/dL (8.5-10.1); CREATININE 0.43 mg/dL (0.70-1.30); SODIUM 140 mmol/L (136-145); TOTAL PROTEIN 4.8 g/dL (6.4-8.2); eGFR NON BLACK RACES > 60 (>60)
[2021-06-09] MEDS: NS 1/2 1000 ML IV 1,000 ML IV SCH ×2 (07:20→12:40)
[2021-06-09] MEDS: LOVENOX INJ 30 MG SYR SC SCH ×2 (08:47→20:44)
[2021-06-09] MEDS: CELEBREX PO SCH ×2 (08:47→20:44)
[2021-06-09] MEDS: LEVAQUIN PREMIX IV 750 MG 750 MG/150 ML BAG IV SCH (08:47)
[2021-06-09] MEDS: ROBITUSSIN DM PO SCH ×4 (08:48→20:45)
[2021-06-09] MEDS: VSL#3 PO SCH (08:48)
[2021-06-09] MEDS: PROTONIX INJ 40 MG VIAL IVP SCH ×2 (08:48→20:45)
[2021-06-09] MEDS: TORADOL 30 MG VIAL IVP PRN (09:14)
[2021-06-09] MEDS: TORADOL 30 MG VIAL IVP SCH ×2 (10:30→17:15)
[2021-06-09] MEDS ORDERED: NS 1/2 1000 ML IV 1,000 ML IV ONE (10:47)
--- NOTE | 2021-06-09 12:51 | PCM.PROG ---
Progress Note - Progress Note for Day of Date of Exam: 06/07/21 - Subjective Subjective: WAS ADMITTED FOR TREATMENT OF PNEUMONIA, ACUTE ABDOMINAL PAIN, AND ACUTE THORACIC BACK PAIN. HE IS CURRENTLY UNDER HOSPICE CARE FOR COPD, EMPHYSEMA, AND RESPIRATORY FAILURE AT HOME. HE HAS BEEN TAKING CIPRO AT HOME FOR TREATMENT OF PNEUMONIA WITHOUT IMPROVEMENT IN SYMPTOMS. HE IS A FORMER SMOKER. TODAY, HE IS ALERT AND ORIENTED, LYING IN BED ON MORNING ROUNDS. HE CONTINUES WITH COMPLAINTS OF COUGH AND SHORTNESS OF BREATH. HE ALSO CONTINUES WITH MID- BACK PAIN AND EPIGASTRIC PAIN. ON EXAMINATION, HEART IS REGULAR IN RATE AND RHYTHM. BILATERAL LUNGS ARE NOTED WITH EXPIRATORY WHEEZING THROUGHOUT. ABDOMEN IS ROUND, SOFT, AND NOTED WITH EPIGASTRIC TENDERNESS TO PALPATION. THERE IS TENDERNESS TO THE T-SPINE ON PALPATION. BILATERAL LOWER EXTREMITIES NOTED WITH TRACE EDEMA. HIS VITALS THIS MORNING ARE: 98.6-85-24-95%-109/57. LABS WERE OBTAINED. ABNORMAL LAB VALUES INCLUDE THE FOLLOWING: RBC 3.81, HGB 11.8, HCT 35.0, CARBON DIOXIDE 36.0, BUN 4, CREATININE 0.48, CALCIUM 8.2, TOTAL PROTEIN 5.4, ALBUMIN 2.3. SPUTUM AND BLOOD CULTURES ARE PENDING. A CHEST CT WAS OBTAINED ON 06/04 AND REVEALED: Likely multiple osteoporotic compression fractures in the thoracic spine. These are mostly old in appearance but the fracture of T6 could be recent or old. Probable primary lung cancer medially in the left upper lobe of the lungs. Adjacent interstitial densities could be from interstitial spread of malignancy. Radiation changes could cause a similar appearance if patient has had prior radiation to this area. Several other nodular densities in the lungs are indeterminate for metastatic disease. Prominent COPD is seen. 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 AT THAT TIME, NO FURTHER FOLLOW UP WAS INDICATED. HE IS CURRENTLY RECEIVING 1/2NS AT 75 ML/HR, FORTAZ 1G IV Q8H, LEVAQUIN 750MG IV DAILY, PULMICORT NEB TX BID, ALBUTEROL NEBS TID, MUCOMYST IN NEB [place] TID, TUSSIONEX 5ML PO Q12H PRN, LOVENOX 30MG SC BID, COLACE HS, MILK OF MAGNESIA BID, MIRALAX DAILY, ROBITUSSIN DM 10ML PO QID, MORPHINE SULFATE 2MG IV Q4H PRN, PROTONIX 40MG IV BID, AND THE POTASSIUM AND MAGNESIUM PROTOCOLS. TODAY, WE WILL ADD ULTRAM 50MG PO Q6H PRN AND TORADOL 30MG IV Q6H PRN PAIN. OTHERWISE, WE WILL CONTINUE WITH CURRENT PLAN OF CARE TODAY. WE WILL FOLLOW UP WITH AM LABS AND CHEST XRAY AND CONTINUE TO MONITOR. TIME SPENT ON CLINICAL ASSESSMENT, REVIEWING LABS AND IMAGING, DECISION MAKING, AND DOCUMENTATION GREATER THAN 45 MINUTES. - Past Medical Family Social History Past Med/Fam/Surg Hx: No changes since H&P Allergies: Allergies No Known Drug Allergies Allergy (Verified 06/03/21 17:48) - Review of Systems ROS: No change since H&P - Vital Signs and I&O's Vital Signs: Temperature 98.0 F Pulse Rate [Left] 86 Pulse Rate 81 Respiratory Rate 20 Blood Pressure [Left Arm] 109/59 Blood Pressure 123/61 O2 Sat by Pulse Oximetry 97 Intake and Output: Intake & Output 06/07/21 06/08/21 06/09/21 06/10/21 11:59 11:59 11:59 11:59 Intake Total 2247 / 2247 1529 / 1529 1585 / 1585 Balance 2247 / 2247 1529 / 1529 1585 / 1585 - Physical Exam Oriented: Normal Eyes: Normal Ear: Normal Nose: Normal Throat: Dry Respiratory: Generalized, Wheezes Cardiovascular: Normal. negative: Edema Auscultation: Bowel Sounds: Normal Palpation: Normal Tenderness: Epigastric, Mild Skin: Decreased Turgur Musculoskeletal: Back:Thoracic, Back:Lumbar Psychiatric: Anxiety Mood Description: Calm Speech Pattern: Clear, Appropriate - Laboratory and Diagnostics Result Diagrams: 06/09/21 05:30 06/09/21 05:30 Labs: 06/03/21 16:59 Blood Blood Culture - Final 06/03/21 16:54 Blood Blood Culture - Final 06/03/21 16:33 Sputum - Expectorated Sputum Sputum Culture - Final 06/03/21 16:33 Sputum - Expectorated Sputum - Final Laboratory WBC 3.5 X10^3/uL (3.6-10.0) L 06/09/21 05:30 RBC 3.66 X10^6/uL (4.7-6.0) L 06/09/21 05:30 Hgb 11.4 g/dL (13.5-18.0) L 06/09/21 05:30 Hct 33.8 % (42.0-54.0) L 06/09/21 05:30 MCV 92.5 fL (80.0-100.0) 06/09/21 05:30 MCH 31.3 pg (27.0-34.0) 06/09/21 05:30 MCHC 33.8 g/dL (33.0-35.0) 06/09/21 05:30 RDW 13.7 % (11.6-16.5) 06/09/21 05:30 Plt Count 156 X10^3/uL (150.0-450.0) 06/09/21 05:30 MPV 7.9 fL (7.4-11.0) 06/09/21 05:30 Neut % (Auto) 69.3 % (42.0-75.0) 06/09/21 05:30 Lymph % (Auto) 14.9 % (21.0-51.0) L 06/09/21 05:30 [place] % (Auto) 10.7 % (0.0-13.0) 06/09/21 05:30 Eos % (Auto) 4.8 % (0.9-2.9) H 06/09/21 05:30 Baso % (Auto) 0.3 % (0.2-1.0) 06/09/21 05:30 Neut # (Auto) 2.4 x10^3/uL (2.2-4.8) 06/09/21 05:30 Lymph # (Auto) 0.5 X10^3/uL (1.3-2.9) L 06/09/21 05:30 [place] # (Auto) 0.4 x10^3/uL (0.3-0.8) 06/09/21 05:30 Eos # (Auto) 0.2 x10^3/uL (0.0-0.2) 06/09/21 05:30 Baso # (Auto) 0.0 X10^3/uL (0.0-0.1) 06/09/21 05:30 Absolute Nucleated RBC 0.0 /100WBC 06/09/21 05:30 PT 12.3 SECONDS (11.8-14.3) 06/03/21 16:54 INR Target Range - 06/03/21 16:54 INR 0.96 (0.8-1.3) 06/03/21 16:54 Sample Site Lr 06/08/21 05:00 ABG pH 7.440 (7.35-7.45) 06/08/21 05:00 ABG pCO2 57.0 mmHg (35.0-45.0) H* 06/08/21 05:00 ABG pO2 151.0 mmHg (80.0-100.0) H 06/08/21 05:00 ABG HCO3 38.7 mmol/L (22-26) H* 06/08/21 05:00 ABG O2 Saturation 99.0 % (90-100) 06/08/21 05:00 ABG Base Excess 12.3 mmol/L (-2.0-2.0) H 06/08/21 05:00 Jani Test Pos 06/08/21 05:00 A-a Gradient -23.0 mmHg 06/08/21 05:00 FiO2 28.0 06/08/21 05:00 Blood Gas Comments Alejandra well sw 06/08/21 05:00 Sodium 140 mmol/L (136-145) 06/09/21 05:30 Corrected Sodium TNP 06/09/21 05:30 Potassium 3.9 mmol/L (3.5-5.1) 06/09/21 05:30 Chloride 102 mmol/L (98-107) 06/09/21 05:30 Carbon Dioxide 35.8 mmol/L (21-32) H 06/09/21 05:30 BUN 4 mg/dL (7-18) L 06/09/21 05:30 Creatinine 0.43 mg/dL (0.70-1.30) L 06/09/21 05:30 Est GFR (MDRD) Af Amer > 60 (>60) 06/09/21 05:30 Est GFR (MDRD) Non-Af > 60 (>60) 06/09/21 05:30 Glucose 80 mg/dL (65-99) 06/09/21 05:30 Lactic Acid 1.7 mmol/L (0.4-2.0) 06/03/21 16:54 Calcium 8.2 mg/dL (8.5-10.1) L 06/09/21 05:30 Corrected Calcium 9.8 mg/dL (8.5-10.1) 06/09/21 05:30 Magnesium 2.0 mg/dL (1.7-2.9) 06/04/21 05:23 Total Bilirubin 0.20 mg/dL (0.2-1.0) 06/09/21 05:30 AST 24 Units/L (15-37) 06/09/21 05:30 ALT 19 Units/L (12-78) 06/09/21 05:30 Alkaline Phosphatase 61 Units/L (46-116) 06/09/21 05:30 Creatine Kinase 30 Units/L (39-308) L 06/04/21 09:09 CK-MB (CK-2) 1.3 ng/mL (0-4.0) 06/04/21 09:09 CK/CKMB % Calc 4.3 % (<4) 06/04/21 09:09 Troponin I < 0.02 ng/mL (0-1.5) 06/04/21 09:09 Total Protein 4.8 g/dL (6.4-8.2) L 06/09/21 05:30 Albumin 2.0 g/dL (3.4-5.0) L 06/09/21 05:30 Globulin 2.8 g/dL (2.5-4.5) 06/09/21 05:30 Albumin/Globulin Ratio 0.7 Ratio (1.1-2.1) L 06/09/21 05:30 Amylase 57 Units/L (25-115) 06/04/21 09:09 Lipase 67 Units/L (73-393) L 06/04/21 09:09 Specimen Type Clean catch urine 06/03/21 21:40 Urine Color Yellow (YELLOW) 06/03/21 21:40 Urine Appearance Clear (CLEAR) 06/03/21 21:40 Urine pH 5.0 (5.0 - 8.0) 06/03/21 21:40 Ur Specific [place] 1.020 (1.000-1.030) 06/03/21 21:40 Urine Protein Negative (NEGATIVE) 06/03/21 21:40 Urine Glucose (UA) Negative (NEGATIVE) 06/03/21 21:40 Urine Ketones Negative (NEGATIVE) 06/03/21 21:40 Urine Occult Blood Negative (NEGATIVE) 06/03/21 21:40 Urine Nitrite Negative (NEGATIVE) 06/03/21 21:40 Urine Bilirubin Negative (NEGATIVE) 06/03/21 21:40 Urine Urobilinogen Normal (NORMAL) 06/03/21 21:40 Ur Leukocyte Esterase Negative (NEGATIVE) 06/03/21 21:40 - Plan (1) Pneumonia Status: Acute Plan: SUPPLEMENTAL OXYGEN, 1/2NS AT 75 ML/HR, FORTAZ 1G IV Q8H, LEVAQUIN 750MG IV DAILY, PULMICORT NEB TX BID, ALBUTEROL NEBS TID, MUCOMYST IN NEB [place] TID, TUSSIONEX 5ML PO Q12H PRN, LOVENOX 30MG SC BID, COLACE HS, MILK OF MAGNESIA BID, MIRALAX DAILY, ROBITUSSIN DM 10ML PO QID, MORPHINE SULFATE 2MG IV Q4H PRN, PROTONIX 40MG IV BID, ULTRAM PRN, TORADOL PRN, AND THE POTASSIUM AND MAGNESIUM PROTOCOLS (2) Acute thoracic back pain Status: Acute Qualifiers: Back pain laterality: midline Qualified Code(s): M54.6 - Pain in thoracic spine (3) Acute abdominal pain Status: Acute
--- NOTE | 2021-06-09 12:56 | PCM.PROG ---
Progress Note - Progress Note for Day of Date of Exam: 06/08/21 - Subjective Subjective: WAS ADMITTED FOR TREATMENT OF PNEUMONIA, ACUTE ABDOMINAL PAIN, AND ACUTE THORACIC BACK PAIN. HE IS CURRENTLY UNDER HOSPICE CARE FOR COPD, EMPHYSEMA, AND RESPIRATORY FAILURE AT HOME. HE HAS BEEN TAKING CIPRO AT HOME FOR TREATMENT OF PNEUMONIA WITHOUT IMPROVEMENT IN SYMPTOMS. HE IS A FORMER SMOKER. TODAY, HE IS ALERT AND ORIENTED, LYING IN BED ON MORNING ROUNDS. HE CONTINUES WITH COMPLAINTS OF COUGH AND SHORTNESS OF BREATH. HE ALSO CONTINUES WITH MID- BACK PAIN. HE DOES ADMIT TO MILD IMPROVEMENT IN SYMPTOMS TODAY. ON EXAMINATION, HEART IS REGULAR IN RATE AND RHYTHM. BILATERAL LUNGS ARE NOTED WITH EXPIRATORY WHEEZING THROUGHOUT. ABDOMEN IS ROUND, SOFT, AND NOTED WITH EPIGASTRIC TENDERNESS TO PALPATION. THERE IS TENDERNESS TO THE T-SPINE ON PALPATION. BILATERAL LOWER EXTREMITIES NOTED WITH TRACE EDEMA. HIS VITALS THIS MORNING ARE: 98.0-99-18-93%-110/59. LABS WERE OBTAINED. ABNORMAL LAB VALUES INCLUDE THE FOLLOWING: WBC 3.4, RBC 3.70, HGB 11.6, HCT 34.5, PLT COUNT 144, CARBON DIOXIDE 35.7, BUN 3, CREATININE 0.45, CALCIUM 8.2, TOTAL PROTEIN 5.0, ALBUMIN 2.1. ABG OBTAINED AND REVEALED: PH 7.440, PC02 57, P02 151, HC03 38.7, 02 SAT 99, BASE EXCESS 12.3, FI02 28.0. A CHEST XRAY WAS OBTAINED THIS MORNING AND REVEALED: COPD with stable bibasilar opacities suspicious for pneumonia. HE IS CURRENTLY RECEIVING 1/2NS AT 75 ML/HR, FORTAZ 1G IV Q8H, LEVAQUIN 750MG IV DAILY, PULMI [place] NEB TX BID, ALBUTEROL NEBS TID, MUCOMYST IN NEB [place] TID, TUSSIONEX 5ML PO Q12H PRN, LOVENOX 30MG SC BID, COLACE HS, MILK OF MAGNESIA BID, MIRALAX DAILY, ROBITUSSIN DM 10ML PO QID, MORPHINE SULFATE 2MG IV Q4H PRN, ULTRAM 50MG PO Q6H PRN, TORADOL 30MG IV Q6H PRN PAIN, PROTONIX 40MG IV BID, AND THE POTASSIUM AND MAGNESIUM PROTOCOLS. OTHERWISE, WE WILL CONTINUE WITH CURRENT PLAN OF CARE TODAY. WE WILL FOLLOW UP WITH AM LABS AND CHEST XRAY AND CONTINUE TO MONITOR. TIME SPENT ON CLINICAL ASSESSMENT, REVIEWING LABS AND IMAGING, DECISION MAKING, AND DOCUMENTATION GREATER THAN 45 MINUTES. - Past Medical Family Social History Past Med/Fam/Surg Hx: No changes since H&P Allergies: Allergies No Known Drug Allergies Allergy (Verified 06/03/21 17:48) - Review of Systems ROS: No change since H&P - Vital Signs and I&O's Vital Signs: Temperature 98.0 F Pulse Rate [Left] 86 Pulse Rate 81 Respiratory Rate 20 Blood Pressure [Left Arm] 109/59 Blood Pressure 123/61 O2 Sat by Pulse Oximetry 97 Intake and Output: Intake & Output 06/07/21 06/08/21 06/09/21 06/10/21 11:59 11:59 11:59 11:59 Intake Total 2247 / 2247 1529 / 1529 1585 / 1585 Balance 2247 / 2247 1529 / 1529 1585 / 1585 - Physical Exam Oriented: Normal Eyes: Normal Ear: Normal Nose: Normal Throat: Dry Respiratory: Generalized, Wheezes Cardiovascular: Normal. negative: Edema Auscultation: Bowel Sounds: Normal Palpation: Normal Tenderness: Epigastric, Mild Skin: Decreased Turgur Musculoskeletal: Back:Thoracic, Back:Lumbar Psychiatric: Anxiety Mood Description: Calm Speech Pattern: Clear, Appropriate - Laboratory and Diagnostics Result Diagrams: 06/09/21 05:30 06/09/21 05:30 Labs: 06/03/21 16:59 Blood Blood Culture - Final 06/03/21 16:54 Blood Blood Culture - Final 06/03/21 16:33 Sputum - Expectorated Sputum Sputum Culture - Final 06/03/21 16:33 Sputum - Expectorated Sputum - Final Laboratory WBC 3.5 X10^3/uL (3.6-10.0) L 06/09/21 05:30 RBC 3.66 X10^6/uL (4.7-6.0) L 06/09/21 05:30 Hgb 11.4 g/dL (13.5-18.0) L 06/09/21 05:30 Hct 33.8 % (42.0-54.0) L 06/09/21 05:30 MCV 92.5 fL (80.0-100.0) 06/09/21 05:30 MCH 31.3 pg (27.0-34.0) 06/09/21 05:30 MCHC 33.8 g/dL (33.0-35.0) 06/09/21 05:30 RDW 13.7 % (11.6-16.5) 06/09/21 05:30 Plt Count 156 X10^3/uL (150.0-450.0) 06/09/21 05:30 MPV 7.9 fL (7.4-11.0) 06/09/21 05:30 Neut % (Auto) 69.3 % (42.0-75.0) 06/09/21 05:30 Lymph % (Auto) 14.9 % (21.0-51.0) L 06/09/21 05:30 [place] % (Auto) 10.7 % (0.0-13.0) 06/09/21 05:30 Eos % (Auto) 4.8 % (0.9-2.9) H 06/09/21 05:30 Baso % (Auto) 0.3 % (0.2-1.0) 06/09/21 05:30 Neut # (Auto) 2.4 x10^3/uL (2.2-4.8) 06/09/21 05:30 Lymph # (Auto) 0.5 X10^3/uL (1.3-2.9) L 06/09/21 05:30 [place] # (Auto) 0.4 x10^3/uL (0.3-0.8) 06/09/21 05:30 Eos # (Auto) 0.2 x10^3/uL (0.0-0.2) 06/09/21 05:30 Baso # (Auto) 0.0 X10^3/uL (0.0-0.1) 06/09/21 05:30 Absolute Nucleated RBC 0.0 /100WBC 06/09/21 05:30 PT 12.3 SECONDS (11.8-14.3) 06/03/21 16:54 INR Target Range - 06/03/21 16:54 INR 0.96 (0.8-1.3) 06/03/21 16:54 Sample Site Lr 06/08/21 05:00 ABG pH 7.440 (7.35-7.45) 06/08/21 05:00 ABG pCO2 57.0 mmHg (35.0-45.0) H* 06/08/21 05:00 ABG pO2 151.0 mmHg (80.0-100.0) H 06/08/21 05:00 ABG HCO3 38.7 mmol/L (22-26) H* 06/08/21 05:00 ABG O2 Saturation 99.0 % (90-100) 06/08/21 05:00 ABG Base Excess 12.3 mmol/L (-2.0-2.0) H 06/08/21 05:00 Jani Test Pos 06/08/21 05:00 A-a Gradient -23.0 mmHg 06/08/21 05:00 FiO2 28.0 06/08/21 05:00 Blood Gas Comments Alejandra well sw 06/08/21 05:00 Sodium 140 mmol/L (136-145) 06/09/21 05:30 Corrected Sodium TNP 06/09/21 05:30 Potassium 3.9 mmol/L (3.5-5.1) 06/09/21 05:30 Chloride 102 mmol/L (98-107) 06/09/21 05:30 Carbon Dioxide 35.8 mmol/L (21-32) H 06/09/21 05:30 BUN 4 mg/dL (7-18) L 06/09/21 05:30 Creatinine 0.43 mg/dL (0.70-1.30) L 06/09/21 05:30 Est GFR (MDRD) Af Amer > 60 (>60) 06/09/21 05:30 Est GFR (MDRD) Non-Af > 60 (>60) 06/09/21 05:30 Glucose 80 mg/dL (65-99) 06/09/21 05:30 Lactic Acid 1.7 mmol/L (0.4-2.0) 06/03/21 16:54 Calcium 8.2 mg/dL (8.5-10.1) L 06/09/21 05:30 Corrected Calcium 9.8 mg/dL (8.5-10.1) 06/09/21 05:30 Magnesium 2.0 mg/dL (1.7-2.9) 06/04/21 05:23 Total Bilirubin 0.20 mg/dL (0.2-1.0) 06/09/21 05:30 AST 24 Units/L (15-37) 06/09/21 05:30 ALT 19 Units/L (12-78) 06/09/21 05:30 Alkaline Phosphatase 61 Units/L (46-116) 06/09/21 05:30 Creatine Kinase 30 Units/L (39-308) L 06/04/21 09:09 CK-MB (CK-2) 1.3 ng/mL (0-4.0) 06/04/21 09:09 CK/CKMB % Calc 4.3 % (<4) 06/04/21 09:09 Troponin I < 0.02 ng/mL (0-1.5) 06/04/21 09:09 Total Protein 4.8 g/dL (6.4-8.2) L 06/09/21 05:30 Albumin 2.0 g/dL (3.4-5.0) L 06/09/21 05:30 Globulin 2.8 g/dL (2.5-4.5) 06/09/21 05:30 Albumin/Globulin Ratio 0.7 Ratio (1.1-2.1) L 06/09/21 05:30 Amylase 57 Units/L (25-115) 06/04/21 09:09 Lipase 67 Units/L (73-393) L 06/04/21 09:09 Specimen Type Clean catch urine 06/03/21 21:40 Urine Color Yellow (YELLOW) 06/03/21 21:40 Urine Appearance Clear (CLEAR) 06/03/21 21:40 Urine pH 5.0 (5.0 - 8.0) 06/03/21 21:40 Ur Specific [place] 1.020 (1.000-1.030) 06/03/21 21:40 Urine Protein Negative (NEGATIVE) 06/03/21 21:40 Urine Glucose (UA) Negative (NEGATIVE) 06/03/21 21:40 Urine Ketones Negative (NEGATIVE) 06/03/21 21:40 Urine Occult Blood Negative (NEGATIVE) 06/03/21 21:40 Urine Nitrite Negative (NEGATIVE) 06/03/21 21:40 Urine Bilirubin Negative (NEGATIVE) 06/03/21 21:40 Urine Urobilinogen Normal (NORMAL) 06/03/21 21:40 Ur Leukocyte Esterase Negative (NEGATIVE) 06/03/21 21:40 - Plan (1) Pneumonia Status: Acute Plan: SUPPLEMENTAL OXYGEN, 1/2NS AT 75 ML/HR, FORTAZ 1G IV Q8H, LEVAQUIN 750MG IV DAILY, PULMICORT NEB TX BID, ALBUTEROL NEBS TID, MUCOMYST IN NEB [place] TID, TUSSIONEX 5ML PO Q12H PRN, LOVENOX 30MG SC BID, COLACE HS, MILK OF MAGNESIA BID, MIRALAX DAILY, ROBITUSSIN DM 10ML PO QID, MORPHINE SULFATE 2MG IV Q4H PRN, PROTONIX 40MG IV BID, ULTRAM PRN, TORADOL PRN, AND THE POTASSIUM AND MAGNESIUM PROTOCOLS (2) Acute thoracic back pain Status: Acute Qualifiers: Back pain laterality: midline Qualified Code(s): M54.6 - Pain in thoracic spine (3) Acute abdominal pain Status: Acute
[2021-06-09] MEDS: PULMICORT NEB TX 0.5 MG NEB SCH ×2 (20:27→20:42)
[2021-06-09] MEDS: COLACE CAP 100 MG PO SCH (20:44)
[2021-06-10] MEDS: TORADOL 30 MG VIAL IVP SCH ×2 (01:45→09:46)
[2021-06-10] MEDS: NS 1/2 1000 ML IV 1,000 ML IV SCH ×2 (03:23→05:00)
[2021-06-10] MEDS ORDERED: NS 1/2 1000 ML IV 1,000 ML IV ONE (04:17)
[2021-06-10] MEDS: FORTAZ or TAZICEF VIAL INJ 1 G in NS 100 ML IV + SPIKE MINIBAG* 100 ML IV SCH (05:00)
[2021-06-10] MEDS: ACCUNEB 1.25 MG NEBULE NEB SCH (05:00)
[2021-06-10] MEDS: MUCOMYST (RESPIRATORY USE ONLY) NEB SCH (05:00)
[2021-06-10 05:48] LABS: BASOPHILS % (AUTO) 0.5 % (0.2-1.0); EOSINOPHILS # (AUTO) 0.2 x10^3/uL (0.0-0.2); EOSINOPHILS % (AUTO) 5.6 % (0.9-2.9); HEMATOCRIT 33.3 % (42.0-54.0); HEMOGLOBIN 11.4 g/dL (13.5-18.0); LYMPHOCYTES # (AUTO) 0.6 X10^3/uL (1.3-2.9); LYMPHOCYTES % (AUTO) 16.2 % (21.0-51.0); MEAN CORPUSCULAR HEMOGLOBIN 31.2 pg (27.0-34.0); MEAN CORPUSCULAR HGB CONC 34.2 g/dL (33.0-35.0); MEAN CORPUSCULAR VOLUME 91.3 fL (80.0-100.0); MEAN PLATELET VOLUME 7.9 fL (7.4-11.0); MONOCYTES # (AUTO) 0.5 x10^3/uL (0.3-0.8); MONOCYTES % (AUTO) 13.4 % (0.0-13.0); NEUTROPHILS # (AUTO) 2.3 x10^3/uL (2.2-4.8); NEUTROPHILS % (AUTO) 64.3 % (42.0-75.0); PLATELET COUNT 175 X10^3/uL (150.0-450.0); RED BLOOD COUNT 3.65 X10^6/uL (4.7-6.0); RED CELL DISTRIBUTION WIDTH 13.8 % (11.6-16.5); WHITE BLOOD COUNT 3.5 X10^3/uL (3.6-10.0)
[2021-06-10 06:03] LABS: ALANINE AMINOTRANSFERASE 20 Units/L (12-78); ALKALINE PHOSPHATASE 64 Units/L (46-116); ASPARTATE AMINO TRANSFERASE 28 Units/L (15-37); BLOOD UREA NITROGEN 3 mg/dL (7-18); CARBON DIOXIDE 37.3 mmol/L (21-32); CHLORIDE 103 mmol/L (98-107); COR CA(FOR HYPOALB) 9.6 mg/dL (8.5-10.1); CREATININE 0.39 mg/dL (0.70-1.30); SODIUM 141 mmol/L (136-145); TOTAL PROTEIN 4.8 g/dL (6.4-8.2); eGFR NON BLACK RACES > 60 (>60)
--- NOTE | 2021-06-10 06:37 | RAD ---
HISTORYSOBSTUDYCHEST, 1 VIEWCOMPARISONOne day prior.TECHNIQUEAP view of the chestFINDINGSCardiac and mediastinal contours are within normal limits. Lungs are hyperexpanded. Stable bibasilar airspace opacities. Stable blunting of the costophrenic sulci. No pneumothorax.IMPRESSIONNo significant change. COPD with bibasilar pneumonia. Pleural effusions versus pleural scarring.Electronically signed by: Von Stratton (Jun 10, 2021 06:35:08)
[2021-06-10] MEDS: LOVENOX INJ 30 MG SYR SC SCH (08:06)
[2021-06-10] MEDS: LEVAQUIN PREMIX IV 750 MG 750 MG/150 ML BAG IV SCH (08:17)
[2021-06-10] MEDS: MILK OF MAGNESIA PO SCH (08:17)
[2021-06-10] MEDS: CELEBREX PO SCH (08:17)
[2021-06-10] MEDS: VSL#3 PO SCH (08:18)
[2021-06-10] MEDS: K-DUR TAB 20 MEQ PO PRN (08:18)
[2021-06-10] MEDS: ROBITUSSIN DM PO SCH (08:18)
[2021-06-10] MEDS: PROTONIX INJ 40 MG VIAL IVP SCH (08:18)
[2021-06-10] MEDS: MORPHINE SULFATE INJ 2 MG INJ IVP PRN ×2 (08:18→12:28)
[2021-06-10] MEDS: PULMICORT NEB TX 0.5 MG NEB SCH (09:20)
--- NOTE | 2021-06-10 10:14 | PCM.PROG ---
Progress Note - Progress Note for Day of Date of Exam: 06/09/21 - Subjective Subjective: WAS ADMITTED FOR TREATMENT OF PNEUMONIA, ACUTE ABDOMINAL PAIN, AND ACUTE THORACIC BACK PAIN. HE IS CURRENTLY UNDER HOSPICE CARE FOR COPD, EMPHYSEMA, AND RESPIRATORY FAILURE AT HOME. HE HAS BEEN TAKING CIPRO AND PREDNISONE AT HOME FOR TREATMENT OF PNEUMONIA WITHOUT IMPROVEMENT IN SYMPTOMS. HE IS A FORMER SMOKER. TODAY, HE IS ALERT AND ORIENTED, LYING IN BED ON MORNING ROUNDS. HE CONTINUES WITH COMPLAINTS OF COUGH AND SHORTNESS OF BREATH. HE ALSO CONTINUES WITH MID-BACK PAIN. HE DOES ADMIT TO MILD IMPROVEMENT IN SYMPTOMS TODAY. ON EXAMINATION, HEART IS REGULAR IN RATE AND RHYTHM. BILATERAL LUNGS ARE NOTED WITH EXPIRATORY WHEEZING THROUGHOUT. ABDOMEN IS ROUND, SOFT, AND NOTED W ITH EPIGASTRIC TENDERNESS TO PALPATION. THERE IS TENDERNESS TO THE T-SPINE ON PALPATION. BILATERAL LOWER EXTREMITIES NOTED WITH TRACE EDEMA. HIS VITALS THIS MORNING ARE: 97.7-84-20-96%-129/58. LABS WERE OBTAINED. ABNORMAL LAB VALUES INCLUDE THE FOLLOWING: WBC 3.5, RBC 3.66, HGB 11.4, HCT 33.8, CARBON DIOXIDE 35.8, BUN 4, CREATININE 0.43, CALCIUM 8.2, TOTAL PROTEIN 4.8, ALBUMIN 2.0. A CHEST XRAY WAS OBTAINED THIS MORNING AND REVEALED: 1. Mild increase in bibasilar pneumonia. 2. COPD. HE IS CURRENTLY RECEIVING 1/2NS AT 75 ML/HR, FORTAZ 1G IV Q8H, LEVAQUIN 750MG IV DAILY, PULMICORT NEB TX BID, ALBUTEROL NEBS TID, MUCOMYST IN NEB [place] TID, TUSSIONEX 5ML PO Q12H PRN, LOVENOX 30MG SC BID, COLACE HS, MILK OF MAGNESIA BID, MIRALAX DAILY, ROBITUSSIN DM 10ML PO QID, MORPHINE SULFATE 2MG IV Q4H PRN, ULTRAM 50MG PO Q6H PRN, TORADOL 30MG IV Q6H PRN PAIN, PROTONIX 40MG IV BID, AND THE POTASSIUM AND MAGNESIUM PROTOCOLS. OTHERWISE, WE WILL CONTINUE WITH CURRENT PLAN OF CARE TODAY. WE WILL FOLLOW UP WITH AM LABS AND CHEST XRAY AND CONTINUE TO MONITOR. TIME SPENT ON CLINICAL ASSESSMENT, REVIEWING LABS AND IMAGING, DECISION MAKING, AND DOCUMENTATION GREATER THAN 45 MINUTES. - Past Medical Family Social History Past Med/Fam/Surg Hx: No changes since H&P Allergies: Allergies No Known Drug Allergies Allergy (Verified 06/03/21 17:48) - Review of Systems ROS: No change since H&P - Vital Signs and I&O's Vital Signs: Temperature 98.0 F Pulse Rate [Left] 96 Pulse Rate 83 Respiratory Rate 22 Blood Pressure [Left Arm] 128/58 Blood Pressure 123/61 O2 Sat by Pulse Oximetry 99 Intake and Output: Intake & Output 06/07/21 06/08/21 06/09/21 06/10/21 11:59 11:59 11:59 11:59 Intake Total 2246 / 2246 1529 / 1529 1585 / 1585 2079 Balance 2246 / 2247 1529 / 1529 1585 / 1585 2079 - Physical Exam Oriented: Normal Eyes: Normal Ear: Normal Nose: Normal Throat: Dry Respiratory: Generalized, Wheezes Cardiovascular: Normal. negative: Edema Auscultation: Bowel Sounds: Normal Palpation: Normal Tenderness: Epigastric, Mild Skin: Decreased Turgur Musculoskeletal: Back:Thoracic, Back:Lumbar Psychiatric: Anxiety Mood Description: Calm Speech Pattern: Clear, Appropriate - Laboratory and Diagnostics Result Diagrams: 06/10/21 05:13 06/10/21 05:13 Labs: 06/03/21 16:59 Blood Blood Culture - Final 06/03/21 16:54 Blood Blood Culture - Final 06/03/21 16:33 Sputum - Expectorated Sputum Sputum Culture - Final 06/03/21 16:33 Sputum - Expectorated Sputum - Final Laboratory WBC 3.5 X10^3/uL (3.6-10.0) L 06/10/21 05:13 RBC 3.65 X10^6/uL (4.7-6.0) L 06/10/21 05:13 Hgb 11.4 g/dL (13.5-18.0) L 06/10/21 05:13 Hct 33.3 % (42.0-54.0) L 06/10/21 05:13 MCV 91.3 fL (80.0-100.0) 06/10/21 05:13 MCH 31.2 pg (27.0-34.0) 06/10/21 05:13 MCHC 34.2 g/dL (33.0-35.0) 06/10/21 05:13 RDW 13.8 % (11.6-16.5) 06/10/21 05:13 Plt Count 175 X10^3/uL (150.0-450.0) 06/10/21 05:13 MPV 7.9 fL (7.4-11.0) 06/10/21 05:13 Neut % (Auto) 64.3 % (42.0-75.0) 06/10/21 05:13 Lymph % (Auto) 16.2 % (21.0-51.0) L 06/10/21 05:13 Darke % (Auto) 13.4 % (0.0-13.0) H 06/10/21 05:13 Eos % (Auto) 5.6 % (0.9-2.9) H 06/10/21 05:13 Baso % (Auto) 0.5 % (0.2-1.0) 06/10/21 05:13 Neut # (Auto) 2.3 x10^3/uL (2.2-4.8) 06/10/21 05:13 Lymph # (Auto) 0.6 X10^3/uL (1.3-2.9) L 06/10/21 05:13 Darke # (Auto) 0.5 x10^3/uL (0.3-0.8) 06/10/21 05:13 Eos # (Auto) 0.2 x10^3/uL (0.0-0.2) 06/10/21 05:13 Baso # (Auto) 0.0 X10^3/uL (0.0-0.1) 06/10/21 05:13 Absolute Nucleated RBC 0.0 /100WBC 06/10/21 05:13 PT 12.3 SECONDS (11.8-14.3) 06/03/21 16:54 INR Target Range - 06/03/21 16:54 INR 0.96 (0.8-1.3) 06/03/21 16:54 Sample Site Lr 06/08/21 05:00 ABG pH 7.440 (7.35-7.45) 06/08/21 05:00 ABG pCO2 57.0 mmHg (35.0-45.0) H* 06/08/21 05:00 ABG pO2 151.0 mmHg (80.0-100.0) H 06/08/21 05:00 ABG HCO3 38.7 mmol/L (22-26) H* 06/08/21 05:00 ABG O2 Saturation 99.0 % (90-100) 06/08/21 05:00 ABG Base Excess 12.3 mmol/L (-2.0-2.0) H 06/08/21 05:00 Jani Test Pos 06/08/21 05:00 A-a Gradient -23.0 mmHg 06/08/21 05:00 FiO2 28.0 06/08/21 05:00 Blood Gas Comments Alejandra well sw 06/08/21 05:00 Sodium 141 mmol/L (136-145) 06/10/21 05:13 Corrected Sodium TNP 06/10/21 05:13 Potassium 3.6 mmol/L (3.5-5.1) 06/10/21 05:13 Chloride 103 mmol/L (98-107) 06/10/21 05:13 Carbon Dioxide 37.3 mmol/L (21-32) H 06/10/21 05:13 BUN 3 mg/dL (7-18) L 06/10/21 05:13 Creatinine 0.39 mg/dL (0.70-1.30) L 06/10/21 05:13 Est GFR (MDRD) Af Amer > 60 (>60) 06/10/21 05:13 Est GFR (MDRD) Non-Af > 60 (>60) 06/10/21 05:13 Glucose 85 mg/dL (65-99) 06/10/21 05:13 Lactic Acid 1.7 mmol/L (0.4-2.0) 06/03/21 16:54 Calcium 8.0 mg/dL (8.5-10.1) L 06/10/21 05:13 Corrected Calcium 9.6 mg/dL (8.5-10.1) 06/10/21 05:13 Magnesium 2.0 mg/dL (1.7-2.9) 06/04/21 05:23 Total Bilirubin 0.20 mg/dL (0.2-1.0) 06/10/21 05:13 AST 28 Units/L (15-37) 06/10/21 05:13 ALT 20 Units/L (12-78) 06/10/21 05:13 Alkaline Phosphatase 64 Units/L (46-116) 06/10/21 05:13 Creatine Kinase 30 Units/L (39-308) L 06/04/21 09:09 CK-MB (CK-2) 1.3 ng/mL (0-4.0) 06/04/21 09:09 CK/CKMB % Calc 4.3 % (<4) 06/04/21 09:09 Troponin I < 0.02 ng/mL (0-1.5) 06/04/21 09:09 Total Protein 4.8 g/dL (6.4-8.2) L 06/10/21 05:13 Albumin 2.0 g/dL (3.4-5.0) L 06/10/21 05:13 Globulin 2.8 g/dL (2.5-4.5) 06/10/21 05:13 Albumin/Globulin Ratio 0.7 Ratio (1.1-2.1) L 06/10/21 05:13 Amylase 57 Units/L (25-115) 06/04/21 09:09 Lipase 67 Units/L (73-393) L 06/04/21 09:09 Specimen Type Clean catch urine 06/03/21 21:40 Urine Color Yellow (YELLOW) 06/03/21 21:40 Urine Appearance Clear (CLEAR) 06/03/21 21:40 Urine pH 5.0 (5.0 - 8.0) 06/03/21 21:40 Ur Specific Powers 1.020 (1.000-1.030) 06/03/21 21:40 Urine Protein Negative (NEGATIVE) 06/03/21 21:40 Urine Glucose (UA) Negative (NEGATIVE) 06/03/21 21:40 Urine Ketones Negative (NEGATIVE) 06/03/21 21:40 Urine Occult Blood Negative (NEGATIVE) 06/03/21 21:40 Urine Nitrite Negative (NEGATIVE) 06/03/21 21:40 Urine Bilirubin Negative (NEGATIVE) 06/03/21 21:40 Urine Urobilinogen Normal (NORMAL) 06/03/21 21:40 Ur Leukocyte Esterase Negative (NEGATIVE) 06/03/21 21:40 - Plan (1) Pneumonia Status: Acute Plan: SUPPLEMENTAL OXYGEN, 1/2NS AT 75 ML/HR, FORTAZ 1G IV Q8H, LEVAQUIN 750MG IV DAILY, PULMICORT NEB TX BID, ALBUTEROL NEBS TID, MUCOMYST IN NEB TX TID, TUSSIONEX 5ML PO Q12H PRN, LOVENOX 30MG SC BID, COLACE HS, MILK OF MAGNESIA BID, MIRALAX DAILY, ROBITUSSIN DM 10ML PO QID, MORPHINE SULFATE 2MG IV Q4H PRN, PROTONIX 40MG IV BID, ULTRAM PRN, TORADOL PRN, AND THE POTASSIUM AND MAGNESIUM PROTOCOLS (2) Acute thoracic back pain Status: Acute Qualifiers: Back pain laterality: midline Qualified Code(s): M54.6 - Pain in thoracic spine (3) Acute abdominal pain Status: Acute
[2021-06-10 12:18] VITALS: BP 144/68
== END 2021-06-10 13:00 | disposition hospice, home (50) | DRG 195 ==
LOC: MED/SURG
PROVIDERS: ADMIT Internal Medicine; ATTEND Internal Medicine
DX: J44.9 Chronic obstructive pulmonary disease, unspecified; K21.9 Gastro-esophageal reflux disease without esophagitis; M54.59 Other low back pain; R62.7 Adult failure to thrive; R91.8 Other nonspecific abnormal finding of lung field; R26.89 Other abnormalities of gait and mobility; M54.6 Pain in thoracic spine; R60.0 Localized edema; J18.8 Other pneumonia, unspecified organism; R06.02 Shortness of breath; R07.89 Other chest pain; R10.84 Generalized abdominal pain; R94.31 Abnormal electrocardiogram [ECG] [EKG]

== ENCOUNTER 2021-06-20 11:58 | Inpatient (IN) ==
--- NOTE | 2021-06-20 12:31 | DR.SOBA ---
HPI Time Seen Time Seen by Provider: 06/20/21 12:30 Primary Care Physician Primary Care Physician: DR IRWIN HPI Comment HPI Comment: PATIENT IS IS 76YR OLD MALE IN ER WITH INCREASING SOB AND SUBSCAPULAR PAIN. Complaints Chief Complaint Doctors Comments: INCREASING SOB, PAIN SUBSCAPULA. Chief Complaint:: PT WAS RECENTLY ADMITTED TO [facility] FOR PNEUMONIA AND PLEUISCY AND WAS DISCHARGED ON 06/10. SINCE THEN HE WAS TREATED FOR THE SAME IN [facility] AND WAS DISCHARGED RECENTLY. SINCE THEN PT HAS HAD C/O INCREASING SHORTNESS OF BREATH WITH NONPRODUCTIVE COUGH THAT IS WORSENING DESPITE BEING ON HOME OXYGEN AT 3.5L COVID-19 Coronavirus risk:travel/contact w/high risk person: No Has patient experienced Coronavirus symptoms: No Source History Provided: Patient and Family Member Mode of Arrival Mode of Arrival: Ambulatory Timing Onset of Chief Complaint: 06/20/21 PMH PMH Past Medical History: Yes Past Medical History: Arthritis, COPD and GERD Past Surgical History: No Surgical History: No History Family History History of Family Medical Conditions: Yes Family Medical History: Cancer Social History Does patient currently use any type of tobacco product: No Have you used tobacco products in the last 12 months: No Type of Tobacco Use: None Does any household member use tobacco: No Alcohol Use: None Do you use any recreational Drugs:: No Lives With: Family Lives Where: Home Travel Risk Coronavirus risk:travel/contact w/high risk person: No Has patient experienced Coronavirus symptoms: No Infectious screening In the last 2 months have you had wt loss of >10#?: NO Have you had fever, night sweats or hemotysis?: No Have you traveled outside the country in the last 6 months?: No Isolation: Standard ROS Review of Systems Constitutional: No Symptoms Reported and See HPI Eyes: No Symptoms Reported and See HPI ENTM: No Symptoms Reported and See HPI Respiratoy: No Symptoms Reported and See HPI Cardiovascular: No Symptoms Reported and See HPI Gastrointestinal/Abdominal: No Symptoms Reported and See HPI Genitourinary: No Symptoms Reported and See HPI Neurological: No Symptoms Reported and See HPI Musculoskeletal: No Symptoms Reported and See HPI Integumentary: No Symptoms Reported and See HPI Hematologic/Lymphatic: No Symptoms Reported and See HPI Endocrine: No Symptoms Reported and See HPI Psychiatric: No Symptoms Reported and See HPI All Other Systems: Reviewed and Negative PE Vital Signs Vitals: Temperature 98.0 F Pulse Rate 108 Respiratory Rate 35 Blood Pressure [Left Arm] 144/68 Blood Pressure 121/67 O2 Sat by Pulse Oximetry 97 General Limitations: No Limitations General Appearance: Alert and In No Apparent Distress Head Head Exam: Normal Inspection Eyes Eye exam: Normal Appearance ENT ENT Exam: Normal Exam Neck Neck Exam: Normal Inspection Chest Chest Inspection: Normal Inspection Respiratory Respiratory Exam: Normal Lung Sounds Bilat Respiratory Exam: Bilateral: Clear to Auscultation Cardiovascular Cardiovascular Exam: Regular Rate and Normal Rhythm Abdominal Exam Abdominal Exam: Normal Inspection, Normal Bowel Sounds and Soft Extremities Extremities Exam: Normal Inspection Back Back Exam: Normal Inspection Neurologic Neurological Exam: Alert and Oriented X3 Psychiatric Psychiatric Exam: Normal Affect and Normal Mood Skin Skin Exam: Warm, Dry, Intact and Normal Color ROR Labs Reviewed Result Diagrams: 06/20/21 12:15 06/20/21 12:15 Laboratory: WBC 12.5 X10^3/uL (3.6-10.0) H 06/20/21 12:15 RBC 4.35 X10^6/uL (4.7-6.0) L 06/20/21 12:15 Hgb 13.3 g/dL (13.5-18.0) L 06/20/21 12:15 Hct 40.0 % (42.0-54.0) L 06/20/21 12:15 MCV 92.2 fL (80.0-100.0) 06/20/21 12:15 MCH 30.5 pg (27.0-34.0) 06/20/21 12:15 MCHC 33.1 g/dL (33.0-35.0) 06/20/21 12:15 RDW 15.0 % (11.6-16.5) 06/20/21 12:15 Plt Count 349 X10^3/uL (150.0-450.0) 06/20/21 12:15 MPV 8.6 fL (7.4-11.0) 06/20/21 12:15 Neut % (Auto) 81.8 % (42.0-75.0) H 06/20/21 12:15 Lymph % (Auto) 9.0 % (21.0-51.0) L 06/20/21 12:15 [place] % (Auto) 7.8 % (0.0-13.0) 06/20/21 12:15 Eos % (Auto) 0.6 % (0.9-2.9) L 06/20/21 12:15 Baso % (Auto) 0.8 % (0.2-1.0) 06/20/21 12:15 Neut # (Auto) 10.2 x10^3/uL (2.2-4.8) H 06/20/21 12:15 Lymph # (Auto) 1.1 X10^3/uL (1.3-2.9) L 06/20/21 12:15 [place] # (Auto) 1.0 x10^3/uL (0.3-0.8) H 06/20/21 12:15 Eos # (Auto) 0.1 x10^3/uL (0.0-0.2) 06/20/21 12:15 Baso # (Auto) 0.1 X10^3/uL (0.0-0.1) 06/20/21 12:15 Absolute Nucleated RBC 0.0 /100WBC 06/20/21 12:15 Sample Site Rbra 06/20/21 15:11 ABG pH 7.400 (7.35-7.45) 06/20/21 15:11 ABG pCO2 79.0 mmHg (35.0-45.0) H* 06/20/21 15:11 ABG pO2 75.0 mmHg (80.0-100.0) L 06/20/21 15:11 ABG HCO3 48.9 mmol/L (22-26) H* 06/20/21 15:11 ABG O2 Saturation 95.0 % (90-100) 06/20/21 15:11 ABG Base Excess 19.9 mmol/L (-2.0-2.0) H 06/20/21 15:11 Jani Test N/a 06/20/21 15:11 A-a Gradient 69.0 mmHg 06/20/21 15:11 FiO2 34.0 06/20/21 15:11 Blood Gas Comments Pt mk well elj 06/20/21 15:11 Sodium 144 mmol/L (136-145) 06/20/21 12:15 Corrected Sodium TNP 06/20/21 12:15 Potassium 4.1 mmol/L (3.5-5.1) 06/20/21 12:15 Chloride 101 mmol/L (98-107) 06/20/21 12:15 Carbon Dioxide 44.2 mmol/L (21-32) H* 06/20/21 12:15 BUN 19 mg/dL (7-18) H 06/20/21 12:15 Creatinine 0.63 mg/dL (0.70-1.30) L 06/20/21 12:15 Est GFR (MDRD) Af Amer > 60 (>60) 06/20/21 12:15 Est GFR (MDRD) Non-Af > 60 (>60) 06/20/21 12:15 Glucose 107 mg/dL (65-99) H 06/20/21 12:15 Calcium 9.6 mg/dL (8.5-10.1) 06/20/21 12:15 Corrected Calcium TNP 06/20/21 12:15 Total Bilirubin 0.40 mg/dL (0.2-1.0) 06/20/21 12:15 AST 29 Units/L (15-37) 06/20/21 12:15 ALT 31 Units/L (12-78) 06/20/21 12:15 Alkaline Phosphatase 85 Units/L (46-116) 06/20/21 12:15 Creatine Kinase 28 Units/L (39-308) L 06/20/21 12:15 CK-MB (CK-2) 1.2 ng/mL (0-4.0) 06/20/21 12:15 CK/CKMB % Calc 4.3 % (<4) 06/20/21 12:15 Troponin I < 0.02 ng/mL (0-1.5) 06/20/21 12:15 B-Natriuretic Peptide 16.6 pg/mL (0-79) 06/20/21 12:15 Total Protein 7.0 g/dL (6.4-8.2) 06/20/21 12:15 Albumin 3.4 g/dL (3.4-5.0) 06/20/21 12:15 Globulin 3.6 g/dL (2.5-4.5) 06/20/21 12:15 Albumin/Globulin Ratio 0.9 Ratio (1.1-2.1) L 06/20/21 12:15 SARS CoV-2 RNA Rapid DIOGO Negative (NEGATIVE) 06/20/21 15:29 Opioid Opioid Risk Tool Age (Emigdio box if 16-45): No History of Preadolescent Sexual Abuse: No Total: 0 Total Score Risk Category: Low Risk Copyright: Kenyon HINOJOSA predicting aberrant behaviors Diagnosis Discharge Problem: Acute exacerbation of chronic obstructive pulmonary disease, Acute respiratory failure with hypoxia and hypercarbia, Acute respiratory distress Instructions Forms: Precautions for COVID19 [facility] Social Distancing
[2021-06-20 13:12] LABS: BASOPHILS # (AUTO) 0.1 X10^3/uL (0.0-0.1); BASOPHILS % (AUTO) 0.8 % (0.2-1.0); EOSINOPHILS # (AUTO) 0.1 x10^3/uL (0.0-0.2); EOSINOPHILS % (AUTO) 0.6 % (0.9-2.9); HEMOGLOBIN 13.3 g/dL (13.5-18.0); LYMPHOCYTES # (AUTO) 1.1 X10^3/uL (1.3-2.9); MEAN CORPUSCULAR HEMOGLOBIN 30.5 pg (27.0-34.0); MEAN CORPUSCULAR HGB CONC 33.1 g/dL (33.0-35.0); MEAN CORPUSCULAR VOLUME 92.2 fL (80.0-100.0); MEAN PLATELET VOLUME 8.6 fL (7.4-11.0); MONOCYTES % (AUTO) 7.8 % (0.0-13.0); NEUTROPHILS # (AUTO) 10.2 x10^3/uL (2.2-4.8); NEUTROPHILS % (AUTO) 81.8 % (42.0-75.0); PLATELET COUNT 349 X10^3/uL (150.0-450.0); RED BLOOD COUNT 4.35 X10^6/uL (4.7-6.0); WHITE BLOOD COUNT 12.5 X10^3/uL (3.6-10.0)
[2021-06-20 13:30] LABS: ALANINE AMINOTRANSFERASE 31 Units/L (12-78); ALBUMIN 3.4 g/dL (3.4-5.0); ALKALINE PHOSPHATASE 85 Units/L (46-116); ASPARTATE AMINO TRANSFERASE 29 Units/L (15-37); BLOOD UREA NITROGEN 19 mg/dL (7-18); CALCIUM 9.6 mg/dL (8.5-10.1); CHLORIDE 101 mmol/L (98-107); CKMB % 4.3 % (<4); CREATINE KINASE 28 Units/L (39-308); CREATINE KINASE MB 1.2 ng/mL (0-4.0); CREATININE 0.63 mg/dL (0.70-1.30); SODIUM 144 mmol/L (136-145); TROPONIN I < 0.02 ng/mL (0-1.5); eGFR NON BLACK RACES > 60 (>60)
[2021-06-20 13:32] LABS: CARBON DIOXIDE 44.2 mmol/L (21-32)
--- NOTE | 2021-06-20 13:45 | RAD ---
HISTORYShortness of breath, COPDSTUDYXR Chest 2 viewsCOMPARISONOctober 2020FINDINGSThe Trachea is midline. The cardiomediastinal silhouette is normal. The lungs demonstrate stable changes of COPD with chronic interstitial changes. No focal infiltrate or effusion can be seen.. Previously noted mass in the left upper lobe and mediastinum is not well appreciated on this exam. Bony Thorax is intact.IMPRESSIONStable findings of COPD without focal infiltrate or effusion.Electronically signed by: LANDON FAIRCHILD (Jun 20, 2021 13:43:03)
[2021-06-20 15:18] LABS: ABG BASE EXCESS 19.9 mmol/L (-2.0-2.0); ABG HCO3 48.9 mmol/L (22-26)
[2021-06-20] MEDS ORDERED: FORTAZ or TAZICEF VIAL INJ 1 G in NS 100 ML IV + SPIKE MINIBAG* 100 ML IV ONE (15:40)
[2021-06-20] MEDS ORDERED: SOLU-Medrol 125 MG VIAL IVP ONE (15:41)
[2021-06-20] MEDS ORDERED: SOLU-Medrol 125 MG VIAL ONE (15:45)
[2021-06-20] MEDS ORDERED: FORTAZ or TAZICEF VIAL INJ ONE (15:45)
[2021-06-20] MEDS ORDERED: DUONEB 0.5 MG/3 MG (3 mL) NEB SCH ×2 (17:00→18:00)
[2021-06-20 18:10] VITALS: BMI 18.8
[2021-06-20] MEDS ORDERED: TYLENOL 325 MG TAB PO PRN (19:50)
[2021-06-20] MEDS ORDERED: ACCUNEB 1.25 MG NEBULE ONE (19:51)
[2021-06-20] MEDS: PULMICORT NEB TX 0.5 MG NEB SCH (20:45)
[2021-06-20] MEDS: ACCUNEB 1.25 MG NEBULE NEB SCH (20:45)
[2021-06-20] MEDS: NS 1000 ML 1,000 ML IV SCH (20:52)
[2021-06-20 21:12] LABS: BILIRUBIN,URINE NEGATIVE (NEGATIVE); BLOOD/HEMOGLOBIN,URINE NEGATIVE (NEGATIVE); GLUCOSE, URINE NEGATIVE (NEGATIVE); KETONES,URINE NEGATIVE (NEGATIVE); LEUKOCYTE ESTERASE ,URINE NEGATIVE (NEGATIVE); NITRITES,URINE NEGATIVE (NEGATIVE); PROTEIN,URINE NEGATIVE (NEGATIVE); UROBILINOGEN,URINE NORMAL (NORMAL)
[2021-06-20 21:24] LABS: APPEARANCE,URINE CLEAR (CLEAR); COLOR,URINE PALE YELLOW (YELLOW)
[2021-06-20] MEDS: FORTAZ or TAZICEF VIAL INJ 1 G in NS 100 ML IV + SPIKE MINIBAG* 100 ML IV SCH (22:26)
[2021-06-20 23:20] LABS: CKMB % 5.3 % (<4); CREATINE KINASE 19 Units/L (39-308); CREATINE KINASE MB < 1.0 ng/mL (0-4.0); TROPONIN I < 0.02 ng/mL (0-1.5)
[2021-06-21] MEDS: FORTAZ or TAZICEF VIAL INJ 1 G in NS 100 ML IV + SPIKE MINIBAG* 100 ML IV SCH ×3 (05:14→21:25)
[2021-06-21] MEDS: NS 1000 ML 1,000 ML IV SCH ×2 (05:14→21:25)
[2021-06-21 05:42] LABS: BASOPHILS % (AUTO) 0.1 % (0.2-1.0); HEMATOCRIT 34.6 % (42.0-54.0); HEMOGLOBIN 11.6 g/dL (13.5-18.0); LYMPHOCYTES # (AUTO) 0.3 X10^3/uL (1.3-2.9); MEAN CORPUSCULAR HEMOGLOBIN 30.8 pg (27.0-34.0); MEAN CORPUSCULAR HGB CONC 33.6 g/dL (33.0-35.0); MEAN CORPUSCULAR VOLUME 91.5 fL (80.0-100.0); MONOCYTES # (AUTO) 0.1 x10^3/uL (0.3-0.8); MONOCYTES % (AUTO) 0.8 % (0.0-13.0); NEUTROPHILS # (AUTO) 7.6 x10^3/uL (2.2-4.8); NEUTROPHILS % (AUTO) 95.1 % (42.0-75.0); PLATELET COUNT 275 X10^3/uL (150.0-450.0); RED BLOOD COUNT 3.78 X10^6/uL (4.7-6.0); RED CELL DISTRIBUTION WIDTH 13.9 % (11.6-16.5); WHITE BLOOD COUNT 7.9 X10^3/uL (3.6-10.0)
[2021-06-21 05:59] LABS: ALANINE AMINOTRANSFERASE 24 Units/L (12-78); ALBUMIN 2.8 g/dL (3.4-5.0); ALKALINE PHOSPHATASE 71 Units/L (46-116); ASPARTATE AMINO TRANSFERASE 21 Units/L (15-37); BLOOD UREA NITROGEN 17 mg/dL (7-18); CARBON DIOXIDE 38.9 mmol/L (21-32); CHLORIDE 102 mmol/L (98-107); CKMB % 5.6 % (<4); COR NA(FOR HYPERGLY) 143 mmol/L (136-145); CREATINE KINASE 18 Units/L (39-308); CREATINE KINASE MB < 1.0 ng/mL (0-4.0); CREATININE 0.65 mg/dL (0.70-1.30); MAGNESIUM 2.3 mg/dL (1.7-2.9); SODIUM 142 mmol/L (136-145); TOTAL PROTEIN 5.9 g/dL (6.4-8.2); TROPONIN I < 0.02 ng/mL (0-1.5); eGFR NON BLACK RACES > 60 (>60)
[2021-06-21] MEDS: ACCUNEB 1.25 MG NEBULE NEB SCH ×3 (06:10→21:15)
[2021-06-21 06:29] LABS: PLATELET MORPHOLOGY COMMENT NORMAL (NORMAL)
[2021-06-21] MEDS: PULMICORT NEB TX 0.5 MG NEB SCH ×2 (08:40→21:14)
[2021-06-21] MEDS: SOLU-Medrol 40 MG VIAL IVP SCH ×3 (09:10→21:26)
[2021-06-21] MEDS: VSL#3 PO SCH (09:10)
--- NOTE | 2021-06-21 11:11 | DR.H&P ---
H&P - History & Physical for Day of: H&P Date: 06/20/21 - Chief Complaint Chief Complaint: SHORTNESS OF BREATH, COUGH, WEAKNESS - History of Present Illness History of Present Illness: IS A 76 YEAR OLD PATIENT OF OURS. HE PRESENTED TO THE ER WITH COMPLAINTS OF PERSISTENT, INCREASING SHORTNESS OF BREATH AND NON-PRODUCTIVE COUGH. HE HAS BEEN ON OXYGEN VIA NASAL CANNULA AT 3.5 LITERS/MINUTE AT HOME WITHOUT IMPROVEMENT IN SYMPTOMS. HE WAS HOSPITALIZED HERE FROM 06/05-06/10 FOR PNEUMONIA. HE HAS ALSO BEEN TREATED AT [facility] FOR PNEUMONIA SINCE THEN. HE IS CURRENTLY UNDER HOSPICE CARE FOR COPD, EMPHYSEMA, AND RESPIRATORY FAILURE AT HOME. HE IS A FORMER SMOKER. ON HIS LAST VISIT, A CHEST CT WAS OBTAINED AND REVEALED: Likely multiple osteoporotic compression fractures in the thoracic spine. These are mostly old in appearance but the fracture of T6 could be recent or old. Probable primary lung cancer medially in the left upper lobe of the lungs. Adjacent interstitial densities could be from interstitial spread of malignancy. Radiation changes could cause a similar appearance if patient has had prior radiation to this area. Several other nodular densities in the lungs are indeterminate for metastatic disease. Prominent COPD is seen. 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 AT THAT TIME, NO FURTHER FOLLOW UP WAS INDICATED. HE HAS BEEN TAKING LEVAQUIN 500MG DAILY, DEXAMETHASONE, AND PULMICORT NEB TREATMENTS WITHOUT IMPROVEMENT IN SYMPTOMS. ON ARRIVAL TO THE ER, VITALS WERE 98.0-112-24-78%NC 2 LPM-127/68. LABS WERE OBTAINED. ABNORMAL LAB VALUES INCLUDE THE FOLLOWING: WBC 12.5, RBC 4.35, HGB 13.3, HCT 40.0, CARBON DIOXIDE 44.2, BUN 19, CREATININE 0.63, GLUCOSE 107, CREATINE KINASE 28. ABG REVEALED: PH 7.400, PC02 79, P02 75, HC03 48.9, 02 SAT 95, BASE EXCESS 19.9, A-A GRADIENT 69, FI02 34. URINALYSIS WAS OBTAINED AND IS UNREMARKABLE. COVID-19 NEGATIVE. SPUTUM AND BLOOD CULTURES WERE SET UP. A CHEST XRAY WAS OBTAINED AND REVEALED: Stable findings of COPD without focal infiltrate or effusion. EKG REVEALED: SINUS TACHYCARDIA WITH HR 106. IN THE ER, HE WAS GIVEN FORTAZ 1G IV X 1 DOSE, SOLU-MEDROL 125MG IV X 1 DOSE. HE WAS ADMITTED TO THE HOSPITAL FOR FURTHER EVALUATION AND TREATMENT OF COPD EXACERBATION, HYPERCAPNEA, AND RESPIRATORY DISTRESS. HE WAS STARTED ON NORMAL SALINE AT KVO, FORTAZ 1G IV Q8H, PULMICORT NEBS BID, ALBUTEROL NEBS TID, MUCOMYST IN NEB [place] TID, LOVENOX 40MG SC DAILY, SOLU-MEDROL 40MG IV Q8H. WE WILL REVIEW HIS HOME MEDICATIONS AND RESUME APPROPRIATE. OTHERWISE, WE WILL FOLLOW UP WITH AM LABS AND CHEST XRAY AND CONTINUE TO MONITOR. TIME SPENT ON CLINICAL ASSESSMENT, REVIEWING LABS AND IMAGING, DECISION MAKING, AND DOCUMENTATION GREATER THAN 75 MINUTES. - Past Medical History Past Medical History: COPD, GERD, Arthritis - Past Surgical History Surgical History: No History - Family History Family Medical History: Cancer - Social History Does patient currently use any type of tobacco product: No Have you used tobacco products in the last 12 months: No Type of Tobacco Use: Cigarettes Does any household member use tobacco: No Alcohol Use: None Drug Use: None - Medications Home Medications: No Known Drug Allergies Allergy (Verified 06/03/21 17:48) CONTINUE taking the following medications furosemide 40 mg PO DAILY 06/20/21 [History] sodium chloride 3 ml INHALATION TID 06/20/21 [History] - Review of Systems Constitutional: Weakness. denies: Fever Eyes: No Symptoms Reported ENT: No Symptoms Reported Respiratory: See HPI, Cough, Shortness of Breath, SOB with Excertion Cardiovascular: No Symptoms Reported Gastrointestinal: No Symptoms Reported Genitourinary: No Symptoms Reported Musculoskeletal: Back Pain Skin: No Symptoms Reported Neurological: Weakness - Physical Exam Vital Signs: Temperature 98.3 F Pulse Rate [Left Radial] 102 Pulse Rate 87 Respiratory Rate 21 Blood Pressure [Left Arm] 126/60 Blood Pressure 121/67 O2 Sat by Pulse Oximetry 94 Oriented: Normal Eyes: Normal Ear: Normal Nose: Normal Throat: Normal Respiratory: Rhonchi Throughout Cardiovascular: Tachycardia : Normal Auscultation: Bowel Sounds: Normal Palpation: Normal Tenderness: Normal Skin: Normal Musculoskeletal: Back:Lumbar, Tender Psychiatric: Normal Mood Description: Calm Affect: Normal Speech Pattern: Clear - Assessment/Plan (1) Acute exacerbation of chronic obstructive pulmonary disease Status: Acute Plan: ADMIT, NORMAL SALINE AT KVO, FORTAZ 1G IV Q8H, PULMICORT NEBS BID, ALBUTEROL NEBS TID, MUCOMYST IN NEB [place] TID, LOVENOX 40MG SC DAILY, SOLU-MEDROL 40MG IV Q8H. (2) Acute respiratory failure with hypoxia and hypercarbia Status: Acute (3) Acute respiratory distress Status: Acute - Allergies Allergies/Adverse Reactions: Allergies Allergy/AdvReac Type Severity Reaction Status Date / Time No Known Drug Allergies Allergy Verified 06/03/21 17:48
[2021-06-21] MEDS: MUCOMYST 20% 200 MG/ML NEB SCH ×2 (13:05→21:14)
[2021-06-21] MEDS: LOVENOX INJ 40 MG SYR SC SCH (13:24)
[2021-06-22 05:31] LABS: ABG BASE EXCESS 15.3 mmol/L (-2.0-2.0)
[2021-06-22 05:34] LABS: ABG ALLEN TEST POS; ABG HCO3 41.5 mmol/L (22-26)
[2021-06-22] MEDS: SOLU-Medrol 40 MG VIAL IVP SCH ×3 (05:36→21:14)
[2021-06-22] MEDS: FORTAZ or TAZICEF VIAL INJ 1 G in NS 100 ML IV + SPIKE MINIBAG* 100 ML IV SCH ×3 (05:36→21:14)
[2021-06-22] MEDS: ACCUNEB 1.25 MG NEBULE NEB SCH (05:49)
[2021-06-22 06:11] LABS: BASOPHILS % (AUTO) 0.1 % (0.2-1.0); HEMATOCRIT 32.6 % (42.0-54.0); HEMOGLOBIN 10.7 g/dL (13.5-18.0); LYMPHOCYTES # (AUTO) 0.4 X10^3/uL (1.3-2.9); LYMPHOCYTES % (AUTO) 2.6 % (21.0-51.0); MEAN CORPUSCULAR HEMOGLOBIN 30.3 pg (27.0-34.0); MEAN CORPUSCULAR HGB CONC 32.8 g/dL (33.0-35.0); MEAN CORPUSCULAR VOLUME 92.3 fL (80.0-100.0); MEAN PLATELET VOLUME 8.2 fL (7.4-11.0); MONOCYTES # (AUTO) 0.2 x10^3/uL (0.3-0.8); MONOCYTES % (AUTO) 1.6 % (0.0-13.0); NEUTROPHILS # (AUTO) 12.9 x10^3/uL (2.2-4.8); NEUTROPHILS % (AUTO) 95.7 % (42.0-75.0); PLATELET COUNT 259 X10^3/uL (150.0-450.0); RED BLOOD COUNT 3.53 X10^6/uL (4.7-6.0); RED CELL DISTRIBUTION WIDTH 14.4 % (11.6-16.5); WHITE BLOOD COUNT 13.5 X10^3/uL (3.6-10.0)
[2021-06-22 06:22] LABS: ALANINE AMINOTRANSFERASE 26 Units/L (12-78); ALBUMIN 2.7 g/dL (3.4-5.0); ALKALINE PHOSPHATASE 65 Units/L (46-116); ASPARTATE AMINO TRANSFERASE 23 Units/L (15-37); BLOOD UREA NITROGEN 17 mg/dL (7-18); CALCIUM 8.7 mg/dL (8.5-10.1); CARBON DIOXIDE 35.9 mmol/L (21-32); CHLORIDE 103 mmol/L (98-107); COR CA(FOR HYPOALB) 9.7 mg/dL (8.5-10.1); COR NA(FOR HYPERGLY) 143 mmol/L (136-145); CREATININE 0.52 mg/dL (0.70-1.30); SODIUM 142 mmol/L (136-145); TOTAL PROTEIN 5.6 g/dL (6.4-8.2); eGFR NON BLACK RACES > 60 (>60)
[2021-06-22 06:41] LABS: BAND NEUTROPHILS % 3 % (0-10); PLATELET MORPHOLOGY COMMENT NORMAL (NORMAL)
--- NOTE | 2021-06-22 07:13 | RAD ---
HISTORYSOBSTUDYCHEST, 1 [id number]/24/2021.TECHNIQUEAP view of the chestFINDINGSCardiac and mediastinal contours are within normal limits. Lungs are stably hyperexpanded. Mild bibasilar hazy pulmonary opacities appear similar. No definite pleural effusion or pneumothorax.IMPRESSIONCOPD with similar appearance of hazy bibasilar pulmonary opacities which may represent pneumonia.Electronically signed by: Von Stratton (Jun 22, 2021 07:11:58)
[2021-06-22] MEDS: PULMICORT NEB TX 0.5 MG NEB SCH ×2 (08:15→20:06)
[2021-06-22] MEDS: LOVENOX INJ 40 MG SYR SC SCH (08:35)
[2021-06-22] MEDS: VSL#3 PO SCH (08:35)
--- NOTE | 2021-06-22 11:31 | PCM.PROG ---
Progress Note - Progress Note for Day of Date of Exam: 06/22/21 - Subjective Subjective: WAS ADMITTED FOR TREATMENT OF ACUTE COPD EXACERBATION, BRONCHOPNEUMONIA, ACUTE RESPIRATORY FAILURE WITH HYPOXIA AND HYPERCARBIA, AND RESPIRATORY DISTRESS. HE IS CURRENTLY UNDER HOSPICE CARE FOR COPD, EMPHYSEMA, AND RESPIRATORY FAILURE AT HOME. HE HAS BEEN TAKING CIPRO AT HOME FOR TREATMENT OF PNEUMONIA WITHOUT IMPROVEMENT IN SYMPTOMS. HE IS A FORMER SMOKER. TODAY, HE IS ALERT AND ORIENTED, LYING IN BED ON MORNING ROUNDS. HE CONTINUES WITH COMPLAINTS OF COUGH AND SHORTNESS OF BREATH. HE DENIES SIGNIFICANT IMPROVEMENT IN SYMPTOMS TODAY. NURSING STAFF REPORTS THAT PATIENT DID HAVE AN INCREASED HEART RATE OF 110-130 BPM THIS MORNING. ON EXAMINATION, HEART IS REGULAR IN RATE AND RHYTHM. BILATERAL LUNGS ARE NOTED WITH EXPIRATORY WHEEZING THROUGHOUT. ABDOMEN IS ROUND, SOFT, AND NON-TENDER. NORAML BOWEL SOUNDS NOTED IN ALL QUADRANTS. HIS VITALS THIS MORNING ARE: 98.1-100-19-97%-142/70. LABS WERE OBTAINED. ABNORMAL LAB VALUES INCLUDE THE FOLLOWING: WBC 13.5, RBC 3.53, HGB 10.7, HCT 32.6, CARBON DIOXIDE 35.9, CREATININE 0.52, GLUCOSE 140, TOTAL PROTEIN 5.6, ALBUMIN 2.7. ABG OBTAINED AND REVEALED: PH 7.470, PC02 57, P02 113, HC03 41.5, 02 SAT 99, BASE EXCESS 15.3, A-A GRADIENT 58, FI02 34. BLOOD AND SPUTUM CULTURES ARE PENDING. A CHEST XRAY WAS OBTAINED THIS MORNING AND REVEALED: COPD with similar appearance of hazy bibasilar pulmonary opacities which may represent pneumonia. HE IS CURRENTLY RECEIVING NORMAL SALINE AT KVO, FORTAZ 1G IV Q8H, PULMICORT NEBS BID, ALBUTEROL NEBS TID, MUCOMYST IN NEB [place] TID, LOVENOX 40MG SC DAILY, SOLU-MEDROL 40MG IV Q8H. WE WILL RESUME HIS HOME MEDICATIONS TODAY. WE WILL CHANGE ALBUTEROL TO XOPENEX NEB TREATMENTS. OTHERWISE, WE WILL CONTINUE WITH CURRENT PLAN OF CARE TODAY. WE WILL FOLLOW UP WITH AM LABS AND CHEST XRAY AND CONTINUE TO MONITOR. TIME SPENT ON CLINICAL ASSESSMENT, REVIEWING LABS AND IMAGING, DECISION MAKING, AND DOCUMENTATION GREATER THAN 45 MINUTES. - Past Medical Family Social History Past Med/Fam/Surg Hx: No changes since H&P Allergies: Allergies No Known Drug Allergies Allergy (Verified 06/03/21 17:48) - Review of Systems ROS: No change since H&P - Vital Signs and I&O's Vital Signs: Temperature 98.1 F Pulse Rate [Left Radial] 98 Pulse Rate 99 Respiratory Rate 19 Blood Pressure [Left Arm] 142/70 Blood Pressure 121/67 O2 Sat by Pulse Oximetry 94 Intake and Output: Intake & Output 06/19/21 06/20/21 06/21/21 06/22/21 11:59 11:59 11:59 11:59 Intake Total 200 / 200 2871 / 2871 Output Total 245 / 245 955 / 955 Balance -45 / -45 1915 / 1915 - Physical Exam Oriented: Normal Eyes: Normal Ear: Normal Nose: Normal Throat: Normal Respiratory: Generalized, Diminished, Wheezes Cardiovascular: Tachycardia : Normal Auscultation: Bowel Sounds: Normal Palpation: Normal Tenderness: Normal Skin: Normal Musculoskeletal: Back:Lumbar, Tender Psychiatric: Normal Mood Description: Calm Affect: Normal Speech Pattern: Clear, Appropriate - Laboratory and Diagnostics Result Diagrams: 06/22/21 05:28 06/22/21 05:28 Labs: 06/20/21 19:33 Sputum - Expectorated Sputum Sputum Culture - Final 06/20/21 19:33 Sputum - Expectorated Sputum - Final Laboratory WBC 13.5 X10^3/uL (3.6-10.0) H 06/22/21 05:28 RBC 3.53 X10^6/uL (4.7-6.0) L 06/22/21 05:28 Hgb 10.7 g/dL (13.5-18.0) L 06/22/21 05:28 Hct 32.6 % (42.0-54.0) L 06/22/21 05:28 MCV 92.3 fL (80.0-100.0) 06/22/21 05:28 MCH 30.3 pg (27.0-34.0) 06/22/21 05:28 MCHC 32.8 g/dL (33.0-35.0) L 06/22/21 05:28 RDW 14.4 % (11.6-16.5) 06/22/21 05:28 Plt Count 259 X10^3/uL (150.0-450.0) 06/22/21 05:28 Plt Count Comment Adequate (ADEQUATE) 06/22/21 05:28 MPV 8.2 fL (7.4-11.0) 06/22/21 05:28 Neut % (Auto) 95.7 % (42.0-75.0) H 06/22/21 05:28 Lymph % (Auto) 2.6 % (21.0-51.0) L 06/22/21 05:28 [place] % (Auto) 1.6 % (0.0-13.0) 06/22/21 05:28 Eos % (Auto) 0.0 % (0.9-2.9) L 06/22/21 05:28 Baso % (Auto) 0.1 % (0.2-1.0) L 06/22/21 05:28 Neut # (Auto) 12.9 x10^3/uL (2.2-4.8) H 06/22/21 05:28 Lymph # (Auto) 0.4 X10^3/uL (1.3-2.9) L 06/22/21 05:28 [place] # (Auto) 0.2 x10^3/uL (0.3-0.8) L 06/22/21 05:28 Eos # (Auto) 0.0 x10^3/uL (0.0-0.2) 06/22/21 05:28 Baso # (Auto) 0.0 X10^3/uL (0.0-0.1) 06/22/21 05:28 Absolute Nucleated RBC 0.1 /100WBC 06/22/21 05:28 Total Counted 100 06/22/21 05:28 Neutrophils % (Manual) 89 % (39-76) H 06/22/21 05:28 Band Neutrophils % 3 % (0-10) 06/22/21 05:28 Lymphocytes % (Manual) 8 % (13-43) L 06/22/21 05:28 Plt Morphology Comment Normal (NORMAL) 06/22/21 05:28 RBC Morphology Normal (NORMAL) 06/22/21 05:28 PT 12.9 SECONDS (11.8-14.3) 06/21/21 05:03 INR Target Range - 06/21/21 05:03 INR 1.02 (0.8-1.3) 06/21/21 05:03 APTT 28.2 SECONDS (22.9-36.5) 06/21/21 05:03 PTT Comment - 06/21/21 05:03 Sample Site Rr 06/22/21 05:00 ABG pH 7.470 (7.35-7.45) H 06/22/21 05:00 ABG pCO2 57.0 mmHg (35.0-45.0) H* 06/22/21 05:00 ABG pO2 113.0 mmHg (80.0-100.0) H 06/22/21 05:00 ABG HCO3 41.5 mmol/L (22-26) H* 06/22/21 05:00 ABG O2 Saturation 99.0 % (90-100) 06/22/21 05:00 ABG Base Excess 15.3 mmol/L (-2.0-2.0) H 06/22/21 05:00 Jani Test Pos 06/22/21 05:00 A-a Gradient 58.0 mmHg 06/22/21 05:00 FiO2 34.0 06/22/21 05:00 Blood Gas Comments Alejandra well sw 06/22/21 05:00 Sodium 142 mmol/L (136-145) 06/22/21 05:28 Corrected Sodium 143 mmol/L (136-145) 06/22/21 05:28 Potassium 3.7 mmol/L (3.5-5.1) 06/22/21 05:28 Chloride 103 mmol/L (98-107) 06/22/21 05:28 Carbon Dioxide 35.9 mmol/L (21-32) H 06/22/21 05:28 BUN 17 mg/dL (7-18) 06/22/21 05:28 Creatinine 0.52 mg/dL (0.70-1.30) L 06/22/21 05:28 Est GFR (MDRD) Af Amer > 60 (>60) 06/22/21 05:28 Est GFR (MDRD) Non-Af > 60 (>60) 06/22/21 05:28 Glucose 140 mg/dL (65-99) H 06/22/21 05:28 Calcium 8.7 mg/dL (8.5-10.1) 06/22/21 05:28 Corrected Calcium 9.7 mg/dL (8.5-10.1) 06/22/21 05:28 Magnesium 2.3 mg/dL (1.7-2.9) 06/21/21 05:03 Total Bilirubin 0.20 mg/dL (0.2-1.0) 06/22/21 05:28 AST 23 Units/L (15-37) 06/22/21 05:28 ALT 26 Units/L (12-78) 06/22/21 05:28 Alkaline Phosphatase 65 Units/L (46-116) 06/22/21 05:28 Creatine Kinase 18 Units/L (39-308) L 06/21/21 05:03 CK-MB (CK-2) < 1.0 ng/mL (0-4.0) 06/21/21 05:03 CK/CKMB % Calc 5.6 % (<4) 06/21/21 05:03 Troponin I < 0.02 ng/mL (0-1.5) 06/21/21 05:03 B-Natriuretic Peptide 16.6 pg/mL (0-79) 06/20/21 12:15 Total Protein 5.6 g/dL (6.4-8.2) L 06/22/21 05:28 Albumin 2.7 g/dL (3.4-5.0) L 06/22/21 05:28 Globulin 2.9 g/dL (2.5-4.5) 06/22/21 05:28 Albumin/Globulin Ratio 0.9 Ratio (1.1-2.1) L 06/22/21 05:28 Specimen Type Clean catch urine 06/20/21 21:00 Urine Color Pale yellow (YELLOW) 06/20/21 21:00 Urine Appearance Clear (CLEAR) 06/20/21 21:00 Urine pH 7.0 (5.0 - 8.0) 06/20/21 21:00 Ur Specific [place] 1.015 (1.000-1.030) 06/20/21 21:00 Urine Protein Negative (NEGATIVE) 06/20/21 21:00 Urine Glucose (UA) Negative (NEGATIVE) 06/20/21 21:00 Urine Ketones Negative (NEGATIVE) 06/20/21 21:00 Urine Occult Blood Negative (NEGATIVE) 06/20/21 21:00 Urine Nitrite Negative (NEGATIVE) 06/20/21 21:00 Urine Bilirubin Negative (NEGATIVE) 06/20/21 21:00 Urine Urobilinogen Normal (NORMAL) 06/20/21 21:00 Ur Leukocyte Esterase Negative (NEGATIVE) 06/20/21 21:00 SARS CoV-2 RNA Rapid DIOGO Negative (NEGATIVE) 06/20/21 15:29 - Plan (1) Acute exacerbation of chronic obstructive pulmonary disease Status: Acute Plan: NORMAL SALINE AT KVO, FORTAZ 1G IV Q8H, PULMICORT NEBS BID, XOPENEX NEBS TID, MUCOMYST IN NEB [place] TID, LOVENOX 40MG SC DAILY, SOLU-MEDROL 40MG IV Q8H. (2) Bronchopneumonia Status: Acute (3) Acute respiratory failure with hypoxia and hypercarbia Status: Acute (4) Acute respiratory distress Status: Acute
[2021-06-22] MEDS: MUCOMYST 20% 200 MG/ML NEB SCH ×2 (13:20→20:06)
[2021-06-22] MEDS: XOPENEX 1.25 MG/3 ML NEBULE NEB SCH ×2 (13:20→20:06)
[2021-06-22] MEDS: NS 1000 ML 1,000 ML IV SCH (15:53)
[2021-06-22] MEDS: CLARITIN PO SCH (21:14)
[2021-06-23] MEDS: NS 1000 ML 1,000 ML IV SCH ×2 (02:43→15:28)
[2021-06-23 04:24] LABS: BASOPHILS % (AUTO) 0.1 % (0.2-1.0); HEMATOCRIT 30.8 % (42.0-54.0); HEMOGLOBIN 10.3 g/dL (13.5-18.0); LYMPHOCYTES # (AUTO) 0.2 X10^3/uL (1.3-2.9); LYMPHOCYTES % (AUTO) 1.7 % (21.0-51.0); MEAN CORPUSCULAR HEMOGLOBIN 30.5 pg (27.0-34.0); MEAN CORPUSCULAR HGB CONC 33.4 g/dL (33.0-35.0); MEAN CORPUSCULAR VOLUME 91.3 fL (80.0-100.0); MEAN PLATELET VOLUME 7.9 fL (7.4-11.0); MONOCYTES # (AUTO) 0.2 x10^3/uL (0.3-0.8); MONOCYTES % (AUTO) 1.2 % (0.0-13.0); NEUTROPHILS # (AUTO) 13.7 x10^3/uL (2.2-4.8); PLATELET COUNT 243 X10^3/uL (150.0-450.0); RED BLOOD COUNT 3.37 X10^6/uL (4.7-6.0); RED CELL DISTRIBUTION WIDTH 14.4 % (11.6-16.5); WHITE BLOOD COUNT 14.1 X10^3/uL (3.6-10.0)
[2021-06-23 04:35] LABS: ALANINE AMINOTRANSFERASE 41 Units/L (12-78); ALBUMIN 2.5 g/dL (3.4-5.0); ALKALINE PHOSPHATASE 63 Units/L (46-116); ASPARTATE AMINO TRANSFERASE 34 Units/L (15-37); BLOOD UREA NITROGEN 15 mg/dL (7-18); CALCIUM 8.7 mg/dL (8.5-10.1); CARBON DIOXIDE 38.1 mmol/L (21-32); CHLORIDE 103 mmol/L (98-107); COR CA(FOR HYPOALB) 9.9 mg/dL (8.5-10.1); COR NA(FOR HYPERGLY) 144 mmol/L (136-145); CREATININE 0.55 mg/dL (0.70-1.30); SODIUM 144 mmol/L (136-145); TOTAL PROTEIN 5.4 g/dL (6.4-8.2); eGFR NON BLACK RACES > 60 (>60)
[2021-06-23 04:50] LABS: BAND NEUTROPHILS % 3 % (0-10); PLATELET MORPHOLOGY COMMENT NORMAL (NORMAL)
[2021-06-23] MEDS: SOLU-Medrol 40 MG VIAL IVP SCH ×3 (05:28→21:19)
[2021-06-23] MEDS: FORTAZ or TAZICEF VIAL INJ 1 G in NS 100 ML IV + SPIKE MINIBAG* 100 ML IV SCH ×3 (05:29→21:19)
[2021-06-23] MEDS: XOPENEX 1.25 MG/3 ML NEBULE NEB SCH ×3 (05:30→20:30)
[2021-06-23] MEDS: MUCOMYST 20% 200 MG/ML NEB SCH ×3 (05:30→20:30)
--- NOTE | 2021-06-23 07:09 | RAD ---
HISTORYSOBSTUDYCHEST, 1 [id number]/26/2021.TECHNIQUEAP view of the chestFINDINGSCardiac and mediastinal contours are within normal limits. Stable lung hyper expansion, lucencies, and mild scattered interstitial opacities. No consolidation, segmental collapse, pleural effusion, or pneumothorax.IMPRESSIONCOPD with improved bibasilar hazy opacities.Electronically signed by: Von Stratton (Jun 23, 2021 07:07:49)
[2021-06-23] MEDS: PULMICORT NEB TX 0.5 MG NEB SCH ×2 (09:00→20:30)
[2021-06-23] MEDS: LOVENOX INJ 40 MG SYR SC SCH (10:46)
[2021-06-23] MEDS: VSL#3 PO SCH (10:46)
[2021-06-23] MEDS: CLARITIN PO SCH (10:46)
--- NOTE | 2021-06-23 12:23 | PCM.PROG ---
Progress Note - Progress Note for Day of Date of Exam: 06/23/21 - Subjective Subjective: WAS ADMITTED FOR TREATMENT OF ACUTE COPD EXACERBATION, BRONCHOPNEUMONIA, ACUTE RESPIRATORY FAILURE WITH HYPOXIA AND HYPERCARBIA, AND RESPIRATORY DISTRESS. HE IS CURRENTLY UNDER HOSPICE CARE FOR COPD, EMPHYSEMA, AND RESPIRATORY FAILURE AT HOME. HE HAS BEEN TAKING CIPRO AT HOME FOR TREATMENT OF PNEUMONIA WITHOUT IMPROVEMENT IN SYMPTOMS. HE IS A FORMER SMOKER. TODAY, HE IS ALERT AND ORIENTED, LYING IN BED ON MORNING ROUNDS. HE CONTINUES WITH COMPLAINTS OF COUGH AND SHORTNESS OF BREATH, SLIGHTLY IMPROVED SINCE YESTERDAY. ON EXAMINATION, HEART IS REGULAR IN RATE AND RHYTHM. BILATERAL LUNGS ARE NOTED WITH EXPIRATORY WHEEZING THROUGHOUT. ABDOMEN IS ROUND, SOFT, AND NON-TENDER. NORAML BOWEL SOUNDS NOTED IN ALL QUADRANTS. HIS VITALS THIS MORNING ARE: 98.4-96-20-93%-141/68. LABS WERE OBTAINED. ABNORMAL LAB VALUES INCLUDE THE FOLLOWING: WBC 14.1, RBC 3.37, HGB 10.3, HCT 30.8, CARBON DIOXIDE 38.1, CREATININE 0.55, GLUCOSE 120, TOTAL PROTEIN 5.4, ALBUMIN 2.5. BLOOD AND SPUTUM CULTURES ARE PENDING. A CHEST XRAY WAS OBTAINED THIS MORNING AND REVEALED: COPD with improved bibasilar hazy opacities. HE IS CURRENTLY RECEIVING NORMAL SALINE AT KVO, FORTAZ 1G IV Q8H, PULMICORT NEBS BID, XOPENEX NEBS TID, MUCOMYST IN NEB TX TID, LOVENOX 40MG SC DAILY, SOLU-MEDROL 40MG IV Q8H. OTHERWISE, WE WILL CONTINUE WITH CURRENT PLAN OF CARE TODAY. WE WILL FOLLOW UP WITH AM LABS AND CHEST XRAY AND CONTINUE TO MONITOR. TIME SPENT ON CLINICAL ASSESSMENT, REVIEWING LABS AND IMAGING, DECISION MAKING, AND DOCUMENTATION GREATER THAN 45 MINUTES. - Past Medical Family Social History Past Med/Fam/Surg Hx: No changes since H&P Allergies: Allergies No Known Drug Allergies Allergy (Verified 06/03/21 17:48) - Review of Systems ROS: No change since H&P - Vital Signs and I&O's Vital Signs: Temperature 98.4 F Pulse Rate [Left Radial] 96 Pulse Rate 85 Respiratory Rate 20 Blood Pressure [Left Arm] 141/68 Blood Pressure 121/67 O2 Sat by Pulse Oximetry 99 Intake and Output: Intake & Output 10/2506/22/21 06/23/21 06/24/21 11:59 11:59 11:59 11:59 Intake Total 200 / 200 2871 / 2871 1401 / 1401 Output Total 245 / 245 955 / 955 730 / 730 Balance -45 / -45 1915 / 1915 671 / 671 - Physical Exam Oriented: Normal Eyes: Normal Ear: Normal Nose: Normal Throat: Normal Respiratory: Generalized, Diminished, Wheezes Cardiovascular: Tachycardia : Normal Auscultation: Bowel Sounds: Normal Tenderness: Normal Skin: Normal Musculoskeletal: Back:Lumbar, Tender Psychiatric: Normal Mood Description: Calm Affect: Normal Speech Pattern: Clear, Appropriate - Laboratory and Diagnostics Result Diagrams: 06/23/21 04:09 06/23/21 04:09 Labs: 06/20/21 17:27 Blood Blood Culture - Preliminary 06/20/21 19:33 Sputum - Expectorated Sputum Sputum Culture - Final 06/20/21 19:33 Sputum - Expectorated Sputum - Final Laboratory WBC 14.1 X10^3/uL (3.6-10.0) H 06/23/21 04:09 RBC 3.37 X10^6/uL (4.7-6.0) L 06/23/21 04:09 Hgb 10.3 g/dL (13.5-18.0) L 06/23/21 04:09 Hct 30.8 % (42.0-54.0) L 06/23/21 04:09 MCV 91.3 fL (80.0-100.0) 06/23/21 04:09 MCH 30.5 pg (27.0-34.0) 06/23/21 04:09 MCHC 33.4 g/dL (33.0-35.0) 06/23/21 04:09 RDW 14.4 % (11.6-16.5) 06/23/21 04:09 Plt Count 243 X10^3/uL (150.0-450.0) 06/23/21 04:09 Plt Count Comment Adequate (ADEQUATE) 06/23/21 04:09 MPV 7.9 fL (7.4-11.0) 06/23/21 04:09 Neut % (Auto) 97.0 % (42.0-75.0) H 06/23/21 04:09 Lymph % (Auto) 1.7 % (21.0-51.0) L 06/23/21 04:09 [place] % (Auto) 1.2 % (0.0-13.0) 06/23/21 04:09 Eos % (Auto) 0.0 % (0.9-2.9) L 06/23/21 04:09 Baso % (Auto) 0.1 % (0.2-1.0) L 06/23/21 04:09 Neut # (Auto) 13.7 x10^3/uL (2.2-4.8) H 06/23/21 04:09 Lymph # (Auto) 0.2 X10^3/uL (1.3-2.9) L 06/23/21 04:09 [place] # (Auto) 0.2 x10^3/uL (0.3-0.8) L 06/23/21 04:09 Eos # (Auto) 0.0 x10^3/uL (0.0-0.2) 06/23/21 04:09 Baso # (Auto) 0.0 X10^3/uL (0.0-0.1) 06/23/21 04:09 Absolute Nucleated RBC 0.0 /100WBC 06/23/21 04:09 Total Counted 100 06/23/21 04:09 Neutrophils % (Manual) 95 % (39-76) H 06/23/21 04:09 Band Neutrophils % 3 % (0-10) 06/23/21 04:09 Lymphocytes % (Manual) 1 % (13-43) L 06/23/21 04:09 Monocytes % (Manual) 1 % (4-9) L 06/23/21 04:09 Plt Morphology Comment Normal (NORMAL) 06/23/21 04:09 RBC Morphology Normal (NORMAL) 06/23/21 04:09 PT 12.9 SECONDS (11.8-14.3) 06/21/21 05:03 INR Target Range - 06/21/21 05:03 INR 1.02 (0.8-1.3) 06/21/21 05:03 APTT 28.2 SECONDS (22.9-36.5) 06/21/21 05:03 PTT Comment - 06/21/21 05:03 Sample Site Rr 06/22/21 05:00 ABG pH 7.470 (7.35-7.45) H 06/22/21 05:00 ABG pCO2 57.0 mmHg (35.0-45.0) H* 06/22/21 05:00 ABG pO2 113.0 mmHg (80.0-100.0) H 06/22/21 05:00 ABG HCO3 41.5 mmol/L (22-26) H* 06/22/21 05:00 ABG O2 Saturation 99.0 % (90-100) 06/22/21 05:00 ABG Base Excess 15.3 mmol/L (-2.0-2.0) H 06/22/21 05:00 Jani Test Pos 06/22/21 05:00 A-a Gradient 58.0 mmHg 06/22/21 05:00 FiO2 34.0 06/22/21 05:00 Blood Gas Comments Alejandra well sw 06/22/21 05:00 Sodium 144 mmol/L (136-145) 06/23/21 04:09 Corrected Sodium 144 mmol/L (136-145) 06/23/21 04:09 Potassium 3.7 mmol/L (3.5-5.1) 06/23/21 04:09 Chloride 103 mmol/L (98-107) 06/23/21 04:09 Carbon Dioxide 38.1 mmol/L (21-32) H 06/23/21 04:09 BUN 15 mg/dL (7-18) 06/23/21 04:09 Creatinine 0.55 mg/dL (0.70-1.30) L 06/23/21 04:09 Est GFR (MDRD) Af Amer > 60 (>60) 06/23/21 04:09 Est GFR (MDRD) Non-Af > 60 (>60) 06/23/21 04:09 Glucose 120 mg/dL (65-99) H 06/23/21 04:09 Calcium 8.7 mg/dL (8.5-10.1) 06/23/21 04:09 Corrected Calcium 9.9 mg/dL (8.5-10.1) 06/23/21 04:09 Magnesium 2.3 mg/dL (1.7-2.9) 06/21/21 05:03 Total Bilirubin 0.20 mg/dL (0.2-1.0) 06/23/21 04:09 AST 34 Units/L (15-37) 06/23/21 04:09 ALT 41 Units/L (12-78) 06/23/21 04:09 Alkaline Phosphatase 63 Units/L (46-116) 06/23/21 04:09 Creatine Kinase 18 Units/L (39-308) L 06/21/21 05:03 CK-MB (CK-2) < 1.0 ng/mL (0-4.0) 06/21/21 05:03 CK/CKMB % Calc 5.6 % (<4) 06/21/21 05:03 Troponin I < 0.02 ng/mL (0-1.5) 06/21/21 05:03 B-Natriuretic Peptide 16.6 pg/mL (0-79) 06/20/21 12:15 Total Protein 5.4 g/dL (6.4-8.2) L 06/23/21 04:09 Albumin 2.5 g/dL (3.4-5.0) L 06/23/21 04:09 Globulin 2.9 g/dL (2.5-4.5) 06/23/21 04:09 Albumin/Globulin Ratio 0.9 Ratio (1.1-2.1) L 06/23/21 04:09 Specimen Type Clean catch urine 06/20/21 21:00 Urine Color Pale yellow (YELLOW) 06/20/21 21:00 Urine Appearance Clear (CLEAR) 06/20/21 21:00 Urine pH 7.0 (5.0 - 8.0) 06/20/21 21:00 Ur Specific [place] 1.015 (1.000-1.030) 06/20/21 21:00 Urine Protein Negative (NEGATIVE) 06/20/21 21:00 Urine Glucose (UA) Negative (NEGATIVE) 06/20/21 21:00 Urine Ketones Negative (NEGATIVE) 06/20/21 21:00 Urine Occult Blood Negative (NEGATIVE) 06/20/21 21:00 Urine Nitrite Negative (NEGATIVE) 06/20/21 21:00 Urine Bilirubin Negative (NEGATIVE) 06/20/21 21:00 Urine Urobilinogen Normal (NORMAL) 06/20/21 21:00 Ur Leukocyte Esterase Negative (NEGATIVE) 06/20/21 21:00 SARS CoV-2 RNA Rapid DIOGO Negative (NEGATIVE) 06/20/21 15:29 - Plan (1) Acute exacerbation of chronic obstructive pulmonary disease Status: Acute Plan: NORMAL SALINE AT KVO, FORTAZ 1G IV Q8H, PULMICORT NEBS BID, XOPENEX NEBS TID, MUCOMYST IN NEB [place] TID, LOVENOX 40MG SC DAILY, SOLU-MEDROL 40MG IV Q8H. (2) Bronchopneumonia Status: Acute (3) Acute respiratory failure with hypoxia and hypercarbia Status: Acute (4) Acute respiratory distress Status: Acute
[2021-06-24] MEDS: XOPENEX 1.25 MG/3 ML NEBULE NEB SCH (05:25)
[2021-06-24] MEDS: MUCOMYST 20% 200 MG/ML NEB SCH (05:25)
[2021-06-24] MEDS: NS 1000 ML 1,000 ML IV SCH (05:52)
[2021-06-24] MEDS: FORTAZ or TAZICEF VIAL INJ 1 G in NS 100 ML IV + SPIKE MINIBAG* 100 ML IV SCH (05:53)
[2021-06-24] MEDS: SOLU-Medrol 40 MG VIAL IVP SCH (05:53)
[2021-06-24 06:24] LABS: BASOPHILS % (AUTO) 0.1 % (0.2-1.0); HEMATOCRIT 33.1 % (42.0-54.0); LYMPHOCYTES # (AUTO) 0.3 X10^3/uL (1.3-2.9); LYMPHOCYTES % (AUTO) 2.2 % (21.0-51.0); MEAN CORPUSCULAR HEMOGLOBIN 30.8 pg (27.0-34.0); MEAN CORPUSCULAR HGB CONC 33.3 g/dL (33.0-35.0); MEAN CORPUSCULAR VOLUME 92.6 fL (80.0-100.0); MEAN PLATELET VOLUME 8.5 fL (7.4-11.0); MONOCYTES # (AUTO) 0.4 x10^3/uL (0.3-0.8); MONOCYTES % (AUTO) 2.8 % (0.0-13.0); NEUTROPHILS # (AUTO) 13.7 x10^3/uL (2.2-4.8); NEUTROPHILS % (AUTO) 94.9 % (42.0-75.0); PLATELET COUNT 252 X10^3/uL (150.0-450.0); RED BLOOD COUNT 3.57 X10^6/uL (4.7-6.0); RED CELL DISTRIBUTION WIDTH 14.2 % (11.6-16.5); WHITE BLOOD COUNT 14.4 X10^3/uL (3.6-10.0)
[2021-06-24 06:37] LABS: ALANINE AMINOTRANSFERASE 58 Units/L (12-78); ALBUMIN 2.7 g/dL (3.4-5.0); ALKALINE PHOSPHATASE 72 Units/L (46-116); ASPARTATE AMINO TRANSFERASE 34 Units/L (15-37); BLOOD UREA NITROGEN 13 mg/dL (7-18); CALCIUM 8.8 mg/dL (8.5-10.1); CARBON DIOXIDE 36.6 mmol/L (21-32); CHLORIDE 106 mmol/L (98-107); COR CA(FOR HYPOALB) 9.8 mg/dL (8.5-10.1); COR NA(FOR HYPERGLY) 146 mmol/L (136-145); CREATININE 0.54 mg/dL (0.70-1.30); SODIUM 145 mmol/L (136-145); TOTAL PROTEIN 5.8 g/dL (6.4-8.2); eGFR NON BLACK RACES > 60 (>60)
[2021-06-24 06:59] LABS: BAND NEUTROPHILS % 5 % (0-10); PLATELET MORPHOLOGY COMMENT NORMAL (NORMAL)
--- NOTE | 2021-06-24 07:15 | RAD ---
HISTORYShortness of breathSTUDYChest AP [id number]/27/2021FINDINGSHear t size is normal. Tyesha are normal. Lungs are hyperinflated but free of acute infiltrates. No pleural effusions are identified. Bony thorax is unremarkable.IMPRESSIONLungs hyperinflated but clear, consistent with COPD in the appropriate clinical settingElectronically signed by: ALVIN MOHR (Jun 24, 2021 07:14:17)
[2021-06-24] MEDS ORDERED: MICRO K EXTEN CAP 10 MEQ PO PRN (07:19)
[2021-06-24] MEDS ORDERED: POTASSIUM CHL 60 MEQ/NS 0.45% 500 ML IV PRN (07:19)
[2021-06-24] MEDS ORDERED: K-DUR TAB 20 MEQ PO PRN (07:19)
[2021-06-24] MEDS ORDERED: POTASSIUM CHLORIDE LIQ 20 MEQ UDC PO PRN (07:19)
[2021-06-24] MEDS ORDERED: KLOR-CON PO PRN (07:19)
[2021-06-24] MEDS ORDERED: POTASSIUM CHL 40 MEQ/NS 0.45% 500 ML IV PRN (07:19)
[2021-06-24] MEDS ORDERED: K-RIDER 10 MEQ/NS 100 ML 10 MEQ/100 ML BAG IV PRN (07:19)
[2021-06-24 08:03] VITALS: BP 185/87
[2021-06-24] MEDS: PULMICORT NEB TX 0.5 MG NEB SCH (08:30)
[2021-06-24] MEDS: VSL#3 PO SCH (09:50)
[2021-06-24] MEDS: LOVENOX INJ 40 MG SYR SC SCH (09:50)
[2021-06-24] MEDS: CLARITIN PO SCH (09:50)
== END 2021-06-24 10:20 | disposition home health service (06) | DRG 190 ==
LOC: MED/SURG 11:58 → ER 11:58 → MED/SURG 16:53
PROVIDERS: ADMIT Internal Medicine; ATTEND Internal Medicine
DX: J96.02 Acute respiratory failure with hypercapnia; J18.0 Bronchopneumonia, unspecified organism; K21.9 Gastro-esophageal reflux disease without esophagitis; R94.31 Abnormal electrocardiogram [ECG] [EKG]; J44.1 Chronic obstructive pulmonary disease with (acute) exacerbation; J96.01 Acute respiratory failure with hypoxia; R26.89 Other abnormalities of gait and mobility; Z20.822 Contact with and (suspected) exposure to COVID-19

== ENCOUNTER 2021-07-05 14:27 | Observation (INO) ==
[2021-07-05] MEDS ORDERED: SOLU-Medrol 125 MG VIAL IVP ONE (14:49)
--- NOTE | 2021-07-05 14:49 | DR.SOBA ---
HPI Time Seen Time Seen by Provider: 07/05/21 14:45 Primary Care Physician Primary Care Physician: DC HPI Comment HPI Comment: PATIENT WITH A HISTORY OF CONGESTIVE HEART FAILURE, ENDSTAGE COPD, RECENTLY DISCHARGED FROM HOSPITAL 06/24/2021, COMPLAINS OF ACUTE DYSPNEA THIS AM WITH ONSET OF LABORED BREATHING AND COUGHING. Complaints Chief Complaint Doctors Comments: ACUTE DYSPNEA WITH LABORED BREATHING Chief Complaint:: PT. C/O INCREASED SHORTNESS OF BREATH THIS AM. PT. WAS RECENTLY DISCHARGED FROM OUR FACILITY ON 06/24/21. PT. WAS ADMITTED ON 06/17/21 FOR COPD EXACERBATION AND PNEUMONIA. PT. HAS HOME O2 AND WEARS 3.5LPM VIA N/C. INITIAL O2 SAT UPON EMS ARRIVAL WAS IN THE 70'S ON PORTABLE O2 TANK. O2 WAS INCREASED TO 6LPM VIA N/C AND O2 SAT INCREASED TO THE 90'S. COVID-19 Coronavirus risk:travel/contact w/high risk person: No Has patient experienced Coronavirus symptoms: Yes Coronavirus symptoms experienced: Shortness of Breath Source History Provided: Significant Other and EMS Mode of Arrival Mode of Arrival: EMS Timing Onset of Chief Complaint: 07/05/21 PMH PMH Past Medical History: Yes Past Medical History: Arthritis, COPD and GERD Past Surgical History: No Surgical History: No History Family History History of Family Medical Conditions: Yes Family Medical History: Cancer Social History Does patient currently use any type of tobacco product: No Have you used tobacco products in the last 12 months: No Type of Tobacco Use: None Does any household member use tobacco: No Alcohol Use: None Do you use any recreational Drugs:: No Lives With: Spouse Lives Where: Home Travel Risk Coronavirus risk:travel/contact w/high risk person: No Has patient experienced Coronavirus symptoms: Yes Coronavirus symptoms experienced: Shortness of Breath Infectious screening In the last 2 months have you had wt loss of >10#?: NO Have you had fever, night sweats or hemotysis?: No Have you traveled outside the country in the last 6 months?: No Isolation: Droplet ROS Review of Systems Constitutional: See HPI Eyes: No Symptoms Reported ENTM: No Symptoms Reported Respiratoy: See HPI, Non-Productive Cough, Short of Breath and Wheezing Cardiovascular: See HPI and Chest Pain Gastrointestinal/Abdominal: No Symptoms Reported Genitourinary: No Symptoms Reported Neurological: No Symptoms Reported Musculoskeletal: No Symptoms Reported Integumentary: No Symptoms Reported Hematologic/Lymphatic: No Symptoms Reported Endocrine: No Symptoms Reported Psychiatric: No Symptoms Reported All Other Systems: Reviewed and Negative PE Vital Signs Vitals: Temperature 98.3 F Pulse Rate 112 Respiratory Rate 32 Blood Pressure [Left Arm] 185/87 Blood Pressure 144/68 O2 Sat by Pulse Oximetry 100 General Limitations: No Limitations and Physical Limitation General Appearance: Alert and In Distress (arrives to emergency room tachypnea, labored breathing, no audible wheezes) Head Head Exam: Normal Inspection and Atraumatic Eyes Eye exam: Normal Appearance, PERRL and EOMI ENT ENT Exam: Normal Exam, Normal Oropharynx and Normal External Ear Exam Neck Neck Exam: Normal Inspection and Full ROM Chest Chest Inspection: Normal Inspection and Symmetric Chest Wall Rise Respiratory Respiratory Exam: Accessory Muscle Use Respiratory Exam: Bilateral: Wheezing, Bilateral: Decreased Breath Sounds and Bilateral: Dullness on Percussion Cardiovascular Cardiovascular Exam: Normal Rhythm and Tachycardia Abdominal Exam Abdominal Exam: Normal Inspection, Normal Bowel Sounds and Soft Extremities Extremities Exam: Normal Inspection and Full ROM Back Back Exam: Normal Inspection and Full ROM Neurologic Neurological Exam: Alert, Oriented X3, CN II-XII Intact and Reflexes Normal Skin Skin Exam: Warm and Dry MDM Differential Diagnosis Differential Diagnosis: COPD, Hyperventilation, Pneumonia, PSVT and Respiratory Insufficiency Differential Diagnosis Comment:: CORONARY SYNDROME, PULMONARY EMBOLISM, COURSE Treatment Treatment: ABG 36% FIO2 PH-7.34, PCO2-68, P02-70, PC02-36, SAT-93%, IV NORMAL SALINE 100ML/HR AFTER 2 SETS BLOOD CULTURES ROCEPHIN 1GM IVBP, [id number] IV Reevaluation 1st: Unchanged Consultation Call Returned: 16:33 Consultation Comments: CONSULTED DR IRWIN AT 1633 FOR ADMIT TO OBSERVATION ROR Labs Reviewed Laboratory Results Reviewed?: Yes Result Diagrams: 07/05/21 15:17 07/05/21 15:17 Laboratory: WBC 13.6 X10^3/uL (3.6-10.0) H 07/05/21 15:17 RBC 4.16 X10^6/uL (4.7-6.0) L 07/05/21 15:17 Hgb 12.6 g/dL (13.5-18.0) L 07/05/21 15:17 Hct 38.7 % (42.0-54.0) L 07/05/21 15:17 MCV 93.0 fL (80.0-100.0) 07/05/21 15:17 MCH 30.4 pg (27.0-34.0) 07/05/21 15:17 MCHC 32.7 g/dL (33.0-35.0) L 07/05/21 15:17 RDW 14.7 % (11.6-16.5) 07/05/21 15:17 Plt Count 194 X10^3/uL (150.0-450.0) 07/05/21 15:17 MPV 7.9 fL (7.4-11.0) 07/05/21 15:17 Neut % (Auto) 87.6 % (42.0-75.0) H 07/05/21 15:17 Lymph % (Auto) 2.8 % (21.0-51.0) L 07/05/21 15:17 [place] % (Auto) 8.4 % (0.0-13.0) 07/05/21 15:17 Eos % (Auto) 0.8 % (0.9-2.9) L 07/05/21 15:17 Baso % (Auto) 0.4 % (0.2-1.0) 07/05/21 15:17 Neut # (Auto) 11.9 x10^3/uL (2.2-4.8) H 07/05/21 15:17 Lymph # (Auto) 0.4 X10^3/uL (1.3-2.9) L 07/05/21 15:17 [place] # (Auto) 1.1 x10^3/uL (0.3-0.8) H 07/05/21 15:17 Eos # (Auto) 0.1 x10^3/uL (0.0-0.2) 07/05/21 15:17 Baso # (Auto) 0.1 X10^3/uL (0.0-0.1) 07/05/21 15:17 Absolute Nucleated RBC 0.0 /100WBC 07/05/21 15:17 PT 12.6 SECONDS (11.8-14.3) 07/05/21 15:17 INR Target Range - 07/05/21 15:17 INR 0.99 (0.8-1.3) 07/05/21 15:17 D-Dimer 1.20 ug/ml (0.0-0.57) H* 07/05/21 15:17 Sample Site Lrad 07/05/21 14:45 ABG pH 7.340 (7.35-7.45) L 07/05/21 14:45 ABG pCO2 68.0 mmHg (35.0-45.0) H* 07/05/21 14:45 ABG pO2 70.0 mmHg (80.0-100.0) L 07/05/21 14:45 ABG HCO3 36.7 mmol/L (22-26) H* 07/05/21 14:45 ABG O2 Saturation 93.0 % (90-100) 07/05/21 14:45 ABG Base Excess 8.6 mmol/L (-2.0-2.0) H 07/05/21 14:45 Jani Test Pos 07/05/21 14:45 A-a Gradient 102.0 mmHg 07/05/21 14:45 FiO2 36.0 07/05/21 14:45 Blood Gas Comments Pt mk well elj 07/05/21 14:45 Sodium 144 mmol/L (136-145) 07/05/21 15:17 Corrected Sodium TNP 07/05/21 15:17 Potassium 3.9 mmol/L (3.5-5.1) 07/05/21 15:17 Chloride 103 mmol/L (98-107) 07/05/21 15:17 Carbon Dioxide 35.9 mmol/L (21-32) H 07/05/21 15:17 BUN 7 mg/dL (7-18) 07/05/21 15:17 Creatinine 0.50 mg/dL (0.70-1.30) L 07/05/21 15:17 Est GFR (MDRD) Af Amer > 60 (>60) 07/05/21 15:17 Est GFR (MDRD) Non-Af > 60 (>60) 07/05/21 15:17 Glucose 106 mg/dL (65-99) H 07/05/21 15:17 Lactic Acid 2.8 mmol/L (0.4-2.0) H 07/05/21 15:17 Calcium 9.2 mg/dL (8.5-10.1) 07/05/21 15:17 Corrected Calcium 10.1 mg/dL (8.5-10.1) 07/05/21 15:17 Total Bilirubin 0.40 mg/dL (0.2-1.0) 07/05/21 15:17 AST 28 Units/L (15-37) 07/05/21 15:17 ALT 36 Units/L (12-78) 07/05/21 15:17 Alkaline Phosphatase 98 Units/L (46-116) 07/05/21 15:17 Troponin I < 0.02 ng/mL (0-1.5) 07/05/21 15:17 B-Natriuretic Peptide 38.4 pg/mL (0-79) 07/05/21 15:17 Total Protein 7.0 g/dL (6.4-8.2) 07/05/21 15:17 Albumin 2.9 g/dL (3.4-5.0) L 07/05/21 15:17 Globulin 4.1 g/dL (2.5-4.5) 07/05/21 15:17 Albumin/Globulin Ratio 0.7 Ratio (1.1-2.1) L 07/05/21 15:17 SARS-CoV-2 (PCR) Negative (NEGATIVE) 07/05/21 15:12 Influenza Type A (PCR) Negative (NEGATIVE) 07/05/21 15:12 Influenza Type B (PCR) Negative (NEGATIVE) 07/05/21 15:12 RSV (PCR) Negative (NEGATIVE) 07/05/21 15:12 XRAY XRAY Interpreted by: Radiologist (CTA CHEST IV CONTRAST NO EVIDENCE OF PULMONARY EMBOLISM, MODERATE CENTRILOBULAR EMPHYSEMA, DIFFUSE BRONCHIAL WALL THICKENING, LOBULATED SOFT TISSUE MASS ANTERIOR MEDIASTINUS MEASURING APPROXIMATELY 5.2 X 3.1 CM WITHOUT SIGNIFICANT CHANGE) X-ray Results: PORTABLE CXR C/W ASYMMETRICALLY INCREASED INTERSTITIAL INFILTRATES IN THE LEFT SUPRA HILAR REGION WHICH MAY BE DUE TO NTERSTITAL SPREAD OF TUMOR BRONCHOPNEUMONIA EKG Rate: 156 [place]: Normal Rhythm: NSR (intraventricular conduction delay) Opioid Opioid Risk Tool Age (Emigdio box if 16-45): No History of Preadolescent Sexual Abuse: No Total: 0 Total Score Risk Category: Low Risk Copyright: [facility] predicting aberrant behaviors Diagnosis Discharge Problem: Acute respiratory insufficiency, Pneumonia, Acute exacerbation of chronic obstructive pulmonary disease
[2021-07-05] MEDS ORDERED: XOPENEX 1.25 MG/3 ML NEBULE NEB ONE ×5 (14:51→19:39)
[2021-07-05 14:52] LABS: ABG BASE EXCESS 8.6 mmol/L (-2.0-2.0)
[2021-07-05] MEDS ORDERED: ROCEPHIN 1 GRAM IV PREMIX 1 G/50 ML IV.SOLN. IV ONE ×2 (14:52→15:16)
[2021-07-05 14:53] LABS: ABG ALLEN TEST POS; ABG HCO3 36.7 mmol/L (22-26)
[2021-07-05] MEDS ORDERED: SOLU-Medrol 125 MG VIAL ONE (15:16)
[2021-07-05 15:35] LABS: BASOPHILS # (AUTO) 0.1 X10^3/uL (0.0-0.1); BASOPHILS % (AUTO) 0.4 % (0.2-1.0); EOSINOPHILS # (AUTO) 0.1 x10^3/uL (0.0-0.2); EOSINOPHILS % (AUTO) 0.8 % (0.9-2.9); HEMATOCRIT 38.7 % (42.0-54.0); HEMOGLOBIN 12.6 g/dL (13.5-18.0); LYMPHOCYTES # (AUTO) 0.4 X10^3/uL (1.3-2.9); LYMPHOCYTES % (AUTO) 2.8 % (21.0-51.0); MEAN CORPUSCULAR HEMOGLOBIN 30.4 pg (27.0-34.0); MEAN CORPUSCULAR HGB CONC 32.7 g/dL (33.0-35.0); MEAN PLATELET VOLUME 7.9 fL (7.4-11.0); MONOCYTES # (AUTO) 1.1 x10^3/uL (0.3-0.8); MONOCYTES % (AUTO) 8.4 % (0.0-13.0); NEUTROPHILS # (AUTO) 11.9 x10^3/uL (2.2-4.8); NEUTROPHILS % (AUTO) 87.6 % (42.0-75.0); PLATELET COUNT 194 X10^3/uL (150.0-450.0); RED BLOOD COUNT 4.16 X10^6/uL (4.7-6.0); RED CELL DISTRIBUTION WIDTH 14.7 % (11.6-16.5); WHITE BLOOD COUNT 13.6 X10^3/uL (3.6-10.0)
[2021-07-05 15:49] LABS: ALANINE AMINOTRANSFERASE 36 Units/L (12-78); ALBUMIN 2.9 g/dL (3.4-5.0); ALKALINE PHOSPHATASE 98 Units/L (46-116); ASPARTATE AMINO TRANSFERASE 28 Units/L (15-37); BLOOD UREA NITROGEN 7 mg/dL (7-18); CALCIUM 9.2 mg/dL (8.5-10.1); CARBON DIOXIDE 35.9 mmol/L (21-32); CHLORIDE 103 mmol/L (98-107); COR CA(FOR HYPOALB) 10.1 mg/dL (8.5-10.1); SODIUM 144 mmol/L (136-145); TROPONIN I < 0.02 ng/mL (0-1.5); eGFR NON BLACK RACES > 60 (>60)
[2021-07-05 15:50] LABS: LACTIC ACID 2.8 mmol/L (0.4-2.0)
[2021-07-05] MEDS ORDERED: NS 500 ML IV 500 ML IV STA (16:06)
[2021-07-05] MEDS ORDERED: NS 100 ML IV 100 ML ONE (16:21)
--- NOTE | 2021-07-05 16:25 | RAD ---
HISTORYDyspnea, COPDSTUDYSingle-view chestCOMPARISONOctober 2019FINDINGSThe Trachea is midline. The cardiomediastinal silhouette is normal. The lungs demonstrate stable changes of COPD with some increased interstitial infiltrates in the left suprahilar region which could be due to early changes of pneumonia or due to interstitial spread of tumor correlating with the recent chest CT from May 2021 biapical pleural capping is again noted bony Thorax is intact.IMPRESSIONAsymmetrically increased interstitial infiltrates in the left suprahilar region which may be due to interstitial spread of tumor bronchopneumonia..Electronically signed by: LANDON FAIRCHILD (Jul 05, 2021 16:23:56)
[2021-07-05] MEDS ORDERED: NS 500 ML IV 500 ML IV ONE (16:49)
--- NOTE | 2021-07-05 17:06 | CT ---
HISTORYELEVATED DDIMER, DYSPNEASTUDYCTA CHESTSOUTHEAST MISSOURI COMMUNITY [facility]REAT[facility] CENTERPARFrancisc[facility] 2020TECHNIQUEAxial CT images of the chest were obtained after the administration of 100 mL Omnipaque IV contrast utilizing a CTA protocol. 3D MIPS were performed and reviewed for further evaluation.Radiation dose: 383.80 mGy-cm total DLPFINDINGSNo significant pericardial effusion.Lobulated soft tissue mass anterior mediastinum measuring approximately 5.2 x 3.1 cm; without significant change.Aorta is normal in caliber without dissection.Pulmonary arteries are normal in caliber without filling defects to suggest a pulmonary embolus.Airways are widely patent.Thyroid appears normal.Trace pleural effusions; left greater than right.Patchy airspace disease along the medial margin of the anterior mediastinal mass; as seen on the previous exam.Moderate centrilobular emphysema.Diffuse bronchial wall thickening; most significant in the posterior/medial segments of the right lower lobe.Smooth interlobular septal thickening in the lung apices and bases.No pneumothorax.No concerning lung parenchymal lesion identified.Imaged portion of the upper abdomen is unremarkable.No acute osseous abnormality.Multilevel age-indeterminate vertebral body height loss in the thoracic spine; as seen on the previous exam.IMPRESSION1. No pulmonary embolus identified.2. Findings are concerning for mild cardiogenic edema.3. Moderate centrilobular emphysema.4. Diffuse bronchial wall thickening could represent bronchitis, chronic edema or inflammation related to COPD/asthma.5. Lobulated soft tissue density in the anterior mediastinum with adjacent airspace disease in the left upper lobe. Differential diagnosis includes a mediastinal mass, such as an invasive thymoma, extending into the medial aspect of the left upper lobe. A primary lung cancer invading the mediastinum could also be considered. Recommend correlation for a history of primary malignancy. Recommend a CT-PET or percutaneous biopsy for further characterization. No significant changes when compared to the previous exam.Electronically signed by: Jeyson Alcaraz (Jul 05, 2021 17:04:51)
[2021-07-05] MEDS ORDERED: LASIX PO PRN (18:14)
[2021-07-05 19:02] LABS: CKMB % 6.5 % (<4); CREATINE KINASE MB 1.5 ng/mL (0-4.0); TROPONIN I 0.08 ng/mL (0-1.5)
[2021-07-05] MEDS ORDERED: PULMICORT NEB TX 0.5 MG NEB ONE (19:39)
[2021-07-05] MEDS: ROCEPHIN 1 GRAM IV PREMIX 1 G/50 ML IV.SOLN. IV SCH (19:59)
[2021-07-05] MEDS: ZITHROMAX INJ 500 MG VIAL 500 MG in NS 250 ML IV 250 ML IV SCH (20:21)
[2021-07-05] MEDS: PEPCID TAB 40 MG PO SCH (20:21)
[2021-07-05] MEDS: NS 1,000 ML IV 1,000 ML IV SCH (20:23)
[2021-07-05] MEDS: PULMICORT NEB TX 0.5 MG NEB SCH (20:29)
[2021-07-05] MEDS: XOPENEX 1.25 MG/3 ML NEBULE NEB SCH (20:29)
[2021-07-05 21:01] VITALS: BMI 16.4
[2021-07-05] MEDS: SOLU-Medrol 40 MG VIAL IVP SCH (21:34)
[2021-07-05] MEDS ORDERED: SALINE 0.9% 3 ML NEB TX IN SCH (22:00)
[2021-07-06 01:10] LABS: CKMB % 6.3 % (<4); CREATINE KINASE MB 1.5 ng/mL (0-4.0); TROPONIN I 0.04 ng/mL (0-1.5)
[2021-07-06] MEDS: SOLU-Medrol 40 MG VIAL IVP SCH ×4 (03:15→21:01)
[2021-07-06 06:39] LABS: CKMB % 5.9 % (<4); CREATINE KINASE MB 1.3 ng/mL (0-4.0); TROPONIN I 0.02 ng/mL (0-1.5)
[2021-07-06] MEDS: PULMICORT NEB TX 0.5 MG NEB SCH ×2 (09:05→20:31)
[2021-07-06] MEDS: XOPENEX 1.25 MG/3 ML NEBULE NEB SCH ×4 (09:05→20:31)
[2021-07-06] MEDS: PROSCAR PO SCH (09:07)
[2021-07-06] MEDS: UNIPHYL TAB 400 MG 24-HR PO SCH (09:07)
[2021-07-06] MEDS: PEPCID TAB 40 MG PO SCH ×2 (09:07→20:12)
[2021-07-06] MEDS: ROCEPHIN 1 GRAM IV PREMIX 1 G/50 ML IV.SOLN. IV SCH (09:08)
[2021-07-06 09:28] LABS: BASOPHILS % (AUTO) 0.1 % (0.2-1.0); HEMATOCRIT 32.4 % (42.0-54.0); HEMOGLOBIN 11.1 g/dL (13.5-18.0); LYMPHOCYTES # (AUTO) 0.2 X10^3/uL (1.3-2.9); LYMPHOCYTES % (AUTO) 2.6 % (21.0-51.0); MEAN CORPUSCULAR HGB CONC 34.2 g/dL (33.0-35.0); MEAN CORPUSCULAR VOLUME 90.6 fL (80.0-100.0); MEAN PLATELET VOLUME 8.1 fL (7.4-11.0); MONOCYTES # (AUTO) 0.1 x10^3/uL (0.3-0.8); MONOCYTES % (AUTO) 1.2 % (0.0-13.0); NEUTROPHILS # (AUTO) 7.2 x10^3/uL (2.2-4.8); NEUTROPHILS % (AUTO) 96.1 % (42.0-75.0); PLATELET COUNT 195 X10^3/uL (150.0-450.0); RED BLOOD COUNT 3.57 X10^6/uL (4.7-6.0); RED CELL DISTRIBUTION WIDTH 14.6 % (11.6-16.5); WHITE BLOOD COUNT 7.4 X10^3/uL (3.6-10.0)
[2021-07-06 09:48] LABS: LACTIC ACID 1.3 mmol/L (0.4-2.0)
[2021-07-06 09:59] LABS: ALANINE AMINOTRANSFERASE 28 Units/L (12-78); ALBUMIN 2.5 g/dL (3.4-5.0); ALKALINE PHOSPHATASE 80 Units/L (46-116); ASPARTATE AMINO TRANSFERASE 24 Units/L (15-37); BLOOD UREA NITROGEN 12 mg/dL (7-18); CALCIUM 8.6 mg/dL (8.5-10.1); CHLORIDE 105 mmol/L (98-107); COR CA(FOR HYPOALB) 9.8 mg/dL (8.5-10.1); COR NA(FOR HYPERGLY) 145 mmol/L (136-145); CREATININE 0.63 mg/dL (0.70-1.30); SODIUM 143 mmol/L (136-145); TOTAL PROTEIN 6.1 g/dL (6.4-8.2); eGFR NON BLACK RACES > 60 (>60)
[2021-07-06] MEDS: ZITHROMAX INJ 500 MG VIAL 500 MG in NS 250 ML IV 250 ML IV SCH (10:00)
[2021-07-06 10:10] LABS: BAND NEUTROPHILS % 5 % (0-10)
[2021-07-06 10:11] LABS: PLATELET MORPHOLOGY COMMENT NORMAL (NORMAL)
--- NOTE | 2021-07-06 10:45 | DR.UPDATE ---
H&P Update History and Physical Update: Changes noted: Yes with the following: TIME SPENT ON CLINICAL ASSESSMENT, REVIEWING LABS AND IMAGING, DECISION MAKING, AND DOCUMENTATION GREATER THAN 75 MINUTES. IS A 76 YEAR OLD PATIENT OF OURS. HE WAS RECENTLY HOSPITALIZED FROM 06/20-06/24 FOR TREATMENT OF COPD EXACERBATION AND PNEUMONIA. HE WAS DISCHARGED HOME WITH ORAL ANTIBIOTICS, PREDNISONE, AND NEBULIZER TREATMENTS. HE PRESENTED TO THE ER TODAY WITH REPORTS OF INCREASED SHORTNESS OF BREATH, PERSISTENT COUGH, AND LABORED BREATHING. HE HAS HOME OXYGEN AND HAD BEEN WEARING IT AT 3.5LPM VIA NASAL CANNULA. EMS REPORTS THAT ON ARRIVAL TO SCENE, PATIENTS SATURATIONS WERE IN THE 70s WHILE ON 3.5 LITERS. OXYGEN WAS INCREASED TO 6LPM AND SATURATIONS INCREASED TO THE 90s. ON ARRIVAL TO THE ER, AUSCULTATION OF LUNG VALENTINE REVEALED SCATTERED WHEEZING. PATIENT WAS TACHYPNEIC AND TACHY WITH HR IN THE 160s. VITALS WERE: 98.3-169-38-94%-130/95. LABS WERE OBTAINED. ABNORMAL LAB VALUES INCLUDE THE FOLLOWING: WBC 13.6, RBC 4.16, HGB 12.6, HCT 38.7, D-DIMER 1.20, CARBON DIOXIDE 35.9, CREATININE 0.50, GLUCOSE 106, LACTIC ACID 2.8, CREATININE KINASE 23, ALBUMIN 2.9. TROPONIN NORMAL. COVID, INFLUENZA, RSV NEGATIVE. ABG WAS OBTAINED AND REVEALED: PH 7.340, PC02 68, P02 70, HC03 36.7, 02 SAT 93, BASE EXCESS 8.6, A-A GRADIENT 102, FI02 36. BLOOD AND SPUTUM CULTURES WERE SET UP. EKG REVEALED: TACHYCARDIA WITH HR 156. A CHEST XRAY WAS OBTAINED. IT REVEALED: Asymmetrically increased interstitial infiltrates in the left suprahilar region which may be due to interstitial spread of tumor bronchopneumonia. A CHEST CTA WAS OBTAINED AND REVEALED: 1. No pulmonary embolus identified. 2. Findings are concerning for mild cardiogenic edema. 3. Moderate centrilobular emphysema. 4. Diffuse bronchial wall thickening could represent bronchitis, chronic edema or inflammation related to COPD/asthma. 5. Lobulated soft tissue density in the anterior mediastinum with adjacent airspace disease in the left upper lobe. Differential diagnosis includes a mediastinal mass, such as an invasive thymoma, extending into the medial aspect of the left upper lobe. A primary lung cancer invading the mediastinum could also be considered. Recommend correlation for a history of primary malignancy. Recommend a CT-PET or percutaneous biopsy for further characterization. No significant changes when compared to the previous exam. HE WAS PLACED ON THE BIPAP IN THE ER. SATURATIONS INCREASED TO 100%. IN THE ER, HE WAS GIVEN SOLU-MEDROL 125MG IV X 1 DOSE, ROCEPHIN 1G IV X 1, XOPENEX NEB TX. HE WAS ADMITTED FOR FURTHER EVALUATION AND TREATMENT OF PNEUMONIA, RESPIRATORY INSUFFICIENCY, COPD EXACERBATION. HE WAS STARTED ON NORMAL SALINE AT KVO, LEVAQUIN 500MG IV DAILY, PULMICORT NEB TX BID, XOPENEX NEB TX QID, SOLU- MEDROL 80MG IV Q8H, LOVENOX 40MG SC DAILY, PEPCID 40MG PO BID, PROSCAR 5MG PO DAILY, LASIX 40MG PO DAILY, COLACE 100MG PO BID, MILK OF MAGNESIA 30ML PO BID, MIRALAX 17G PO HS, AND THEOPHYLLINE 400MG PO DAILY. OTHERWISE, WE PLAN TO FOLLOW UP WITH AM LABS AND CONTINUE TO MONITOR. TIME SPENT ON CLINICAL ASSESSMENT, REVIEWING LABS AND IMAGING, DECISION MAKING, AND DOCUMENTATION GREATER THAN 75 MINUTES. H&P Reviewed: Yes Patient was examined?: Yes
[2021-07-06] MEDS: LOVENOX INJ 40 MG SYR SC SCH (11:00)
[2021-07-06] MEDS: COLACE CAP 100 MG PO SCH ×2 (11:00→20:11)
[2021-07-06] MEDS: MILK OF MAGNESIA PO SCH ×2 (11:51→20:13)
[2021-07-06] MEDS: ZyrTEC TAB 10 MG PO SCH (17:45)
[2021-07-06] MEDS: FLONASE NASAL SPRAY ENOSTRIL SCH (17:45)
[2021-07-06] MEDS: NS 1,000 ML IV 1,000 ML IV SCH (20:11)
[2021-07-06] MEDS: MIRALAX POWDER (1 DOSE 17 G) PO SCH (20:13)
[2021-07-07] MEDS: SOLU-Medrol 40 MG VIAL IVP SCH ×3 (05:38→21:03)
--- NOTE | 2021-07-07 06:04 | RAD ---
HISTORYSOB COPDSTUDYCHEST, 1 [id number]/08/2021.FINDINGSThe trachea is midline. The cardiac silhouette is unremarkable. Chronic interstitial lung changes with flattening of the diaphragm consistent with COPD is observed. Increased interstitial markings are again noted in the left suprahilar region. No pleural effusion or pneumothorax. The bony thorax is unremarkable.IMPRESSIONCOPD.Increased interstitial markings in the left suprahilar region.No significant change from previous 07/05/2021..Electronically signed by: Hector Engel (Jul 07, 2021 06:02:18)
[2021-07-07 06:13] LABS: BASOPHILS % (AUTO) 0.1 % (0.2-1.0); HEMATOCRIT 29.2 % (42.0-54.0); HEMOGLOBIN 9.9 g/dL (13.5-18.0); LYMPHOCYTES # (AUTO) 0.3 X10^3/uL (1.3-2.9); LYMPHOCYTES % (AUTO) 2.3 % (21.0-51.0); MEAN CORPUSCULAR HGB CONC 33.9 g/dL (33.0-35.0); MEAN CORPUSCULAR VOLUME 91.6 fL (80.0-100.0); MONOCYTES # (AUTO) 0.2 x10^3/uL (0.3-0.8); NEUTROPHILS # (AUTO) 10.4 x10^3/uL (2.2-4.8); NEUTROPHILS % (AUTO) 95.6 % (42.0-75.0); PLATELET COUNT 198 X10^3/uL (150.0-450.0); RED BLOOD COUNT 3.19 X10^6/uL (4.7-6.0); RED CELL DISTRIBUTION WIDTH 14.8 % (11.6-16.5); WHITE BLOOD COUNT 10.9 X10^3/uL (3.6-10.0)
[2021-07-07 06:31] LABS: ALANINE AMINOTRANSFERASE 28 Units/L (12-78); ALBUMIN 2.5 g/dL (3.4-5.0); ALKALINE PHOSPHATASE 68 Units/L (46-116); ASPARTATE AMINO TRANSFERASE 22 Units/L (15-37); BLOOD UREA NITROGEN 12 mg/dL (7-18); CALCIUM 8.5 mg/dL (8.5-10.1); CARBON DIOXIDE 37.4 mmol/L (21-32); CHLORIDE 105 mmol/L (98-107); COR CA(FOR HYPOALB) 9.7 mg/dL (8.5-10.1); COR NA(FOR HYPERGLY) 145 mmol/L (136-145); CREATININE 0.54 mg/dL (0.70-1.30); SODIUM 144 mmol/L (136-145); TOTAL PROTEIN 5.8 g/dL (6.4-8.2); eGFR NON BLACK RACES > 60 (>60)
[2021-07-07 06:57] LABS: BAND NEUTROPHILS % 5 % (0-10)
[2021-07-07 06:58] LABS: PLATELET MORPHOLOGY COMMENT NORMAL (NORMAL)
[2021-07-07] MEDS: ZyrTEC TAB 10 MG PO SCH (08:34)
[2021-07-07] MEDS: COLACE CAP 100 MG PO SCH ×3 (08:34→21:22)
[2021-07-07] MEDS: MILK OF MAGNESIA PO SCH ×3 (08:34→21:23)
[2021-07-07] MEDS: UNIPHYL TAB 400 MG 24-HR PO SCH (08:34)
[2021-07-07] MEDS: PROSCAR PO SCH (08:34)
[2021-07-07] MEDS: PEPCID TAB 40 MG PO SCH ×2 (08:34→20:16)
[2021-07-07] MEDS: LOVENOX INJ 40 MG SYR SC SCH (08:34)
[2021-07-07] MEDS: ZITHROMAX INJ 500 MG VIAL 500 MG in NS 250 ML IV 250 ML IV SCH (08:35)
[2021-07-07] MEDS: ROCEPHIN 1 GRAM IV PREMIX 1 G/50 ML IV.SOLN. IV SCH (08:35)
[2021-07-07] MEDS: FLONASE NASAL SPRAY ENOSTRIL SCH (08:42)
[2021-07-07] MEDS: XOPENEX 1.25 MG/3 ML NEBULE NEB SCH ×4 (09:05→20:46)
[2021-07-07] MEDS: PULMICORT NEB TX 0.5 MG NEB SCH ×2 (09:05→20:46)
[2021-07-07] MEDS: LEVAQUIN PREMIX IV 500 MG 500 MG/100 ML BAG IV SCH (10:15)
[2021-07-07] MEDS ORDERED: POTASSIUM CHL 40 MEQ/NS 0.45% 500 ML IV PRN (10:44)
[2021-07-07] MEDS ORDERED: K-RIDER 10 MEQ/NS 100 ML 10 MEQ/100 ML BAG IV PRN (10:44)
[2021-07-07] MEDS ORDERED: POTASSIUM CHLORIDE LIQ 20 MEQ UDC PO PRN (10:44)
[2021-07-07] MEDS ORDERED: K-DUR TAB 20 MEQ PO PRN (10:44)
[2021-07-07] MEDS ORDERED: POTASSIUM CHL 60 MEQ/NS 0.45% 500 ML IV PRN (10:44)
[2021-07-07] MEDS ORDERED: MICRO K EXTEN CAP 10 MEQ PO PRN (10:44)
[2021-07-07] MEDS ORDERED: KLOR-CON PO PRN (10:44)
--- NOTE | 2021-07-07 11:15 | PCM.PROG ---
Progress Note - Progress Note for Day of Date of Exam: 07/07/21 - Subjective Subjective: WAS ADMITTED FOR TREATMENT OF PNEUMONIA, RESPIRATORY INSUFFICIENCY, AND COPD EXACERBATION. HE IS CURRENTLY UNDER HOSPICE CARE FOR COPD, EMPHYSEMA, AND RESPIRATORY FAILURE AT HOME. HE HAS BEEN TAKING CIPRO AT HOME FOR TREATMENT OF PNEUMONIA WITHOUT IMPROVEMENT IN SYMPTOMS. HE IS A FORMER SMOKER. TODAY, HE IS ALERT AND ORIENTED, LYING IN BED ON MORNING ROUNDS. HE CONTINUES WITH COMPLAINTS OF COUGH AND SHORTNESS OF BREATH. HE DENIES SIGNIFICANT IMPROVEMENT IN SYMPTOMS TODAY. HE CONTINUES TO HAVE ELEVATED HEART RATE AT TIMES. HE IS CURRENTLY UTILIZING OXYGEN VIA NASAL CANNULA AT 5 LITERS/MINUTE. ON EXAMINATION, HEART IS REGULAR IN RATE AND RHYTHM. BILATERAL LUNGS ARE NOTED WITH EXPIRATORY WHEEZING THROUGHOUT. ABDOMEN IS ROUND, SOFT, AND NON-TENDER. NORMAL BOWEL SOUNDS NOTED IN ALL QUADRANTS. HIS VITALS THIS MORNING ARE: 98.0-86-20-97%-126/61. LABS WERE OBTAINED. ABNORMAL LAB VALUES INCLUDE THE FOLLOWING: WBC 10.9, RBC 3.19, HGB 9.9, HCT 29.2, CARBON DIOXIDE 37.4, CREATININ E 0.54, GLUCOSE 122, TOTAL PROTEIN 5.8, ALBUMIN 2.5. BLOOD AND SPUTUM CULTURES ARE PENDING. A CHEST XRAY WAS OBTAINED THIS MORNING AND REVEALED: The trachea is midline. The cardiac silhouette is unremarkable. Chronic interstitial lung changes with flattening of the diaphragm consistent with COPD is observed. Increased interstitial markings are again noted in the left suprahilar region. No pleural effusion or pneumothorax. The bony thorax is unremarkable. HE IS CURRENTLY RECEIVING NORMAL SALINE AT KVO, LEVAQUIN 500MG IV DAILY, PULMICORT NEB TX BID, XOPENEX NEB TX QID, SOLU-MEDROL 80MG IV Q8H, LOVENOX 40MG SC DAILY, PEPCID 40MG PO BID, PROSCAR 5MG PO DAILY, LASIX 40MG PO DAILY, COLACE 100MG PO BID, MILK OF MAGNESIA 30ML PO BID, MIRALAX 17G PO HS, AND THEOPHYLLINE 400MG PO DAILY. TODAY, WE WILL DECREASED THEOPHYLLINE TO 200MG PO DAILY, ADD FORTAZ 1G IV Q8H, AND OBTAIN AN ABG IN THE MORNING. OTHERWISE, WE WILL CONTINUE WITH CURRENT PLAN OF CARE TODAY. WE WILL FOLLOW UP WITH AM LABS AND CHEST XRAY AND CONTINUE TO MONITOR. TIME SPENT ON CLINICAL ASSESSMENT, REVIEWING LABS AND IMAGING, DECI JACEK MAKING, AND DOCUMENTATION GREATER THAN 45 MINUTES. - Past Medical Family Social History Past Med/Fam/Surg Hx: No changes since H&P Allergies: Allergies No Known Drug Allergies Allergy (Verified 06/03/21 17:48) - Review of Systems ROS: No change since H&P - Vital Signs and I&O's Vital Signs: Temperature 98.0 F Pulse Rate [Apical] 86 Pulse Rate 72 Respiratory Rate 20 Blood Pressure [Left Arm] 126/61 Blood Pressure 126/72 O2 Sat by Pulse Oximetry 92 Intake and Output: Intake & Output 07/04/21 07/05/21 07/06/21 07/07/21 11:59 11:59 11:59 11:59 Intake Total 1042 / 1042 1290 / 1290 Output Total 250 / 250 Balance 792 / 792 1290 / 1290 - Physical Exam Oriented: Normal Eyes: Normal Ear: Normal Nose: Normal Throat: Normal Respiratory: Generalized, Wheezes Cardiovascular: Normal : Normal Auscultation: Bowel Sounds: Normal Palpation: Normal Tenderness: Normal Skin: Normal Musculoskeletal: Normal Psychiatric: Normal Mood Description: Calm Affect: Normal Speech Pattern: Clear, Appropriate - Laboratory and Diagnostics Result Diagrams: 07/07/21 05:37 07/07/21 05:37 Labs: 07/05/21 15:23 Blood Blood Culture - Preliminary 07/05/21 15:17 Blood Blood Culture - Preliminary 07/05/21 15:00 Sputum - Expectorated Sputum Sputum Culture - Preliminary 07/05/21 15:00 Sputum - Expectorated Sputum - Final Laboratory WBC 10.9 X10^3/uL (3.6-10.0) H 07/07/21 05:37 RBC 3.19 X10^6/uL (4.7-6.0) L 07/07/21 05:37 Hgb 9.9 g/dL (13.5-18.0) L 07/07/21 05:37 Hct 29.2 % (42.0-54.0) L 07/07/21 05:37 MCV 91.6 fL (80.0-100.0) 07/07/21 05:37 MCH 31.0 pg (27.0-34.0) 07/07/21 05:37 MCHC 33.9 g/dL (33.0-35.0) 07/07/21 05:37 RDW 14.8 % (11.6-16.5) 07/07/21 05:37 Plt Count 198 X10^3/uL (150.0-450.0) 07/07/21 05:37 Plt Count Comment Adequate (ADEQUATE) 07/07/21 05:37 MPV 8.0 fL (7.4-11.0) 07/07/21 05:37 Neut % (Auto) 95.6 % (42.0-75.0) H 07/07/21 05:37 Lymph % (Auto) 2.3 % (21.0-51.0) L 07/07/21 05:37 [place] % (Auto) 2.0 % (0.0-13.0) 07/07/21 05:37 Eos % (Auto) 0.0 % (0.9-2.9) L 07/07/21 05:37 Baso % (Auto) 0.1 % (0.2-1.0) L 07/07/21 05:37 Neut # (Auto) 10.4 x10^3/uL (2.2-4.8) H 07/07/21 05:37 Lymph # (Auto) 0.3 X10^3/uL (1.3-2.9) L 07/07/21 05:37 [place] # (Auto) 0.2 x10^3/uL (0.3-0.8) L 07/07/21 05:37 Eos # (Auto) 0.0 x10^3/uL (0.0-0.2) 07/07/21 05:37 Baso # (Auto) 0.0 X10^3/uL (0.0-0.1) 07/07/21 05:37 Absolute Nucleated RBC 0.1 /100WBC 07/07/21 05:37 Total Counted 100 07/07/21 05:37 Neutrophils % (Manual) 91 % (39-76) H 07/07/21 05:37 Band Neutrophils % 5 % (0-10) 07/07/21 05:37 Lymphocytes % (Manual) 3 % (13-43) L 07/07/21 05:37 Monocytes % (Manual) 1 % (4-9) L 07/07/21 05:37 Plt Morphology Comment Normal (NORMAL) 07/07/21 05:37 RBC Morphology Normal (NORMAL) 07/07/21 05:37 PT 12.6 SECONDS (11.8-14.3) 07/05/21 15:17 INR Target Range - 07/05/21 15:17 INR 0.99 (0.8-1.3) 07/05/21 15:17 D-Dimer 1.20 ug/ml (0.0-0.57) H* 07/05/21 15:17 Sample Site Lrad 07/05/21 14:45 ABG pH 7.340 (7.35-7.45) L 07/05/21 14:45 ABG pCO2 68.0 mmHg (35.0-45.0) H* 07/05/21 14:45 ABG pO2 70.0 mmHg (80.0-100.0) L 07/05/21 14:45 ABG HCO3 36.7 mmol/L (22-26) H* 07/05/21 14:45 ABG O2 Saturation 93.0 % (90-100) 07/05/21 14:45 ABG Base Excess 8.6 mmol/L (-2.0-2.0) H 07/05/21 14:45 Jani Test Pos 07/05/21 14:45 A-a Gradient 102.0 mmHg 07/05/21 14:45 FiO2 36.0 07/05/21 14:45 Blood Gas Comments Pt mk well elj 07/05/21 14:45 Sodium 144 mmol/L (136-145) 07/07/21 05:37 Corrected Sodium 145 mmol/L (136-145) 07/07/21 05:37 Potassium 3.5 mmol/L (3.5-5.1) 07/07/21 05:37 Chloride 105 mmol/L (98-107) 07/07/21 05:37 Carbon Dioxide 37.4 mmol/L (21-32) H 07/07/21 05:37 BUN 12 mg/dL (7-18) 07/07/21 05:37 Creatinine 0.54 mg/dL (0.70-1.30) L 07/07/21 05:37 Est GFR (MDRD) Af Amer > 60 (>60) 07/07/21 05:37 Est GFR (MDRD) Non-Af > 60 (>60) 07/07/21 05:37 Glucose 122 mg/dL (65-99) H 07/07/21 05:37 Lactic Acid 1.3 mmol/L (0.4-2.0) 07/06/21 09:14 Calcium 8.5 mg/dL (8.5-10.1) 07/07/21 05:37 Corrected Calcium 9.7 mg/dL (8.5-10.1) 07/07/21 05:37 Total Bilirubin 0.20 mg/dL (0.2-1.0) 07/07/21 05:37 AST 22 Units/L (15-37) 07/07/21 05:37 ALT 28 Units/L (12-78) 07/07/21 05:37 Alkaline Phosphatase 68 Units/L (46-116) 07/07/21 05:37 Creatine Kinase 22 Units/L (39-308) L 07/06/21 06:12 CK-MB (CK-2) 1.3 ng/mL (0-4.0) 07/06/21 06:12 CK/CKMB % Calc 5.9 % (<4) 07/06/21 06:12 Troponin I 0.02 ng/mL (0-1.5) 07/06/21 06:12 B-Natriuretic Peptide 38.4 pg/mL (0-79) 07/05/21 15:17 Total Protein 5.8 g/dL (6.4-8.2) L 07/07/21 05:37 Albumin 2.5 g/dL (3.4-5.0) L 07/07/21 05:37 Globulin 3.3 g/dL (2.5-4.5) 07/07/21 05:37 Albumin/Globulin Ratio 0.8 Ratio (1.1-2.1) L 07/07/21 05:37 SARS-CoV-2 (PCR) Negative (NEGATIVE) 07/05/21 15:12 Influenza Type A (PCR) Negative (NEGATIVE) 07/05/21 15:12 Influenza Type B (PCR) Negative (NEGATIVE) 07/05/21 15:12 RSV (PCR) Negative (NEGATIVE) 07/05/21 15:12 - Plan (1) Pneumonia Status: Acute Qualifiers: Pneumonia type: due to unspecified organism Laterality: unspecified latera lity Lung location: unspecified part of lung Qualified Code(s): J18.9 - Pneumonia, unspecified organism Plan: SUPPLEMENTAL OXYGEN, NORMAL SALINE AT KVO, LEVAQUIN 500MG IV DAILY, FORTAZ 1G IV Q8H, PULMICORT NEB TX BID, XOPENEX NEB TX QID, SOLU-MEDROL 80MG IV Q8H, LOVENOX 40MG SC DAILY, PEPCID 40MG PO BID, PROSCAR 5MG PO DAILY, LASIX 40MG PO DAILY, COLACE 100MG PO BID, MILK OF MAGNESIA 30ML PO BID, MIRALAX 17G PO HS, AND THEOPHYLLINE 400MG PO DAILY. (2) Acute exacerbation of chronic obstructive pulmonary disease Status: Acute (3) Acute respiratory insufficiency Status: Acute
[2021-07-07] MEDS: FORTAZ or TAZICEF VIAL INJ 1 G in NS 100 ML IV + SPIKE MINIBAG* 100 ML IV SCH ×3 (13:11→21:04)
[2021-07-07] MEDS: MIRALAX POWDER (1 DOSE 17 G) PO SCH ×2 (20:16→21:23)
[2021-07-07] MEDS: NS 1,000 ML IV 1,000 ML IV SCH (20:17)
[2021-07-08] MEDS: SOLU-Medrol 40 MG VIAL IVP SCH (05:07)
[2021-07-08] MEDS: FORTAZ or TAZICEF VIAL INJ 1 G in NS 100 ML IV + SPIKE MINIBAG* 100 ML IV SCH (05:07)
[2021-07-08 05:19] LABS: ABG BASE EXCESS 15.9 mmol/L (-2.0-2.0)
[2021-07-08 05:54] LABS: BASOPHILS % (AUTO) 0 % (0.2-1.0); HEMATOCRIT 26.9 % (42.0-54.0); HEMOGLOBIN 9.2 g/dL (13.5-18.0); LYMPHOCYTES # (AUTO) 0.2 X10^3/uL (1.3-2.9); LYMPHOCYTES % (AUTO) 2.2 % (21.0-51.0); MEAN CORPUSCULAR HEMOGLOBIN 31.1 pg (27.0-34.0); MEAN CORPUSCULAR HGB CONC 34.3 g/dL (33.0-35.0); MEAN CORPUSCULAR VOLUME 90.6 fL (80.0-100.0); MONOCYTES # (AUTO) 0.3 x10^3/uL (0.3-0.8); MONOCYTES % (AUTO) 2.7 % (0.0-13.0); NEUTROPHILS # (AUTO) 10.4 x10^3/uL (2.2-4.8); NEUTROPHILS % (AUTO) 95.1 % (42.0-75.0); PLATELET COUNT 192 X10^3/uL (150.0-450.0); RED BLOOD COUNT 2.96 X10^6/uL (4.7-6.0); WHITE BLOOD COUNT 10.9 X10^3/uL (3.6-10.0)
--- NOTE | 2021-07-08 06:10 | RAD ---
HISTORYSOBSTUDYCHEST, 1 VIEWCOMPARISONOne day prior.TECHNIQUEAP view of the chestFINDINGSCardiac and mediastinal contours are within normal limits. COPD with chronic mild interstitial opacities remain. Known mass in the anterior mediastinum better seen on recent CTA chest. There is blunting of the costophrenic sulci. No pneumothorax.IMPRESSIONCOPD with small pleural effusions versus pleural scarring. Known mediastinal mass not well visualized radiographically.Electronically signed by: Von Stratton (Jul 08, 2021 06:08:35)
[2021-07-08 06:15] LABS: ALANINE AMINOTRANSFERASE 32 Units/L (12-78); ALBUMIN 2.3 g/dL (3.4-5.0); ALKALINE PHOSPHATASE 62 Units/L (46-116); ASPARTATE AMINO TRANSFERASE 25 Units/L (15-37); BLOOD UREA NITROGEN 14 mg/dL (7-18); CALCIUM 8.2 mg/dL (8.5-10.1); CARBON DIOXIDE 38.2 mmol/L (21-32); CHLORIDE 105 mmol/L (98-107); COR CA(FOR HYPOALB) 9.6 mg/dL (8.5-10.1); COR NA(FOR HYPERGLY) 143 mmol/L (136-145); CREATININE 0.53 mg/dL (0.70-1.30); SODIUM 143 mmol/L (136-145); TOTAL PROTEIN 5.4 g/dL (6.4-8.2); eGFR NON BLACK RACES > 60 (>60)
[2021-07-08 06:35] LABS: BAND NEUTROPHILS % 12 % (0-10); PLATELET MORPHOLOGY COMMENT NORMAL (NORMAL)
[2021-07-08 07:56] VITALS: BP 143/72
[2021-07-08] MEDS: LOVENOX INJ 40 MG SYR SC SCH (08:41)
[2021-07-08] MEDS: ZyrTEC TAB 10 MG PO SCH (08:42)
[2021-07-08] MEDS: LEVAQUIN PREMIX IV 500 MG 500 MG/100 ML BAG IV SCH (08:42)
[2021-07-08] MEDS: FLONASE NASAL SPRAY ENOSTRIL SCH (08:42)
[2021-07-08] MEDS: PEPCID TAB 40 MG PO SCH (08:42)
[2021-07-08] MEDS: COLACE CAP 100 MG PO SCH (08:42)
[2021-07-08] MEDS: PROSCAR PO SCH (08:42)
[2021-07-08] MEDS: MILK OF MAGNESIA PO SCH (08:46)
[2021-07-08] MEDS ORDERED: THEO-24 CAP 200 MG (24-HR) PO SCH (09:00)
[2021-07-08] MEDS: XOPENEX 1.25 MG/3 ML NEBULE NEB SCH (09:43)
[2021-07-08] MEDS: PULMICORT NEB TX 0.5 MG NEB SCH (09:43)
[2021-07-08 21:35] LABS: ABG ALLEN TEST POS
[2021-07-08 21:37] LABS: ABG HCO3 43.5 mmol/L (22-26)
== END 2021-07-08 13:15 | disposition home health service (06) ==
LOC: ER 14:27 → MED/SURG 14:27
PROVIDERS: ADMIT Internal Medicine; ATTEND Internal Medicine
DX: Z99.81 Dependence on supplemental oxygen; R06.02 Shortness of breath; Z28.20 Immunization not carried out because of patient decision for unspecified reason; J44.1 Chronic obstructive pulmonary disease with (acute) exacerbation; J18.8 Other pneumonia, unspecified organism; R06.89 Other abnormalities of breathing

== ENCOUNTER 2021-07-09 18:32 | Observation (INO) ==
--- NOTE | 2021-07-09 19:11 | DR.SOBA ---
HPI Time Seen Time Seen by Provider: 07/09/21 19:11 Primary Care Physician Primary Care Physician: jackie Complaints Chief Complaint:: pt c/o sob pt has hx of copd pt has some wheezing and rales noted COVID-19 Coronavirus risk:travel/contact w/high risk person: No Has patient experienced Coronavirus symptoms: No Source History Provided: Patient Mode of Arrival Mode of Arrival: EMS Timing Onset of Chief Complaint: 07/09/21 PMH PMH Past Medical History: Yes Past Medical History: Arthritis, COPD and GERD Past Surgical History: No Surgical History: No History Family History History of Family Medical Conditions: Yes Family Medical History: Cancer Social History Does any household member use tobacco: No Alcohol Use: None Do you use any recreational Drugs:: No Lives With: Family Lives Where: Home Travel Risk Coronavirus risk:travel/contact w/high risk person: No Has patient experienced Coronavirus symptoms: No Infectious screening In the last 2 months have you had wt loss of >10#?: NO Have you had fever, night sweats or hemotysis?: No Have you traveled outside the country in the last 6 months?: No Isolation: Droplet PE Vital Signs Vitals: Temperature 98.2 F Pulse Rate [Apical] 112 Pulse Rate 104 Respiratory Rate 28 Blood Pressure [Left Arm] 115/66 Blood Pressure 136/72 O2 Sat by Pulse Oximetry 98 ROR Labs Reviewed Result Diagrams: 07/09/21 19:50 07/09/21 19:50 Laboratory: WBC 9.2 X10^3/uL (3.6-10.0) 07/09/21 19:50 RBC 3.78 X10^6/uL (4.7-6.0) L 07/09/21 19:50 Hgb 11.6 g/dL (13.5-18.0) L D 07/09/21 19:50 Hct 34.9 % (42.0-54.0) L 07/09/21 19:50 MCV 92.3 fL (80.0-100.0) 07/09/21 19:50 MCH 30.7 pg (27.0-34.0) 07/09/21 19:50 MCHC 33.2 g/dL (33.0-35.0) 07/09/21 19:50 RDW 14.8 % (11.6-16.5) 07/09/21 19:50 Plt Count 228 X10^3/uL (150.0-450.0) 07/09/21 19:50 MPV 7.6 fL (7.4-11.0) 07/09/21 19:50 Neut % (Auto) 87.1 % (42.0-75.0) H 07/09/21 19:50 Lymph % (Auto) 5.8 % (21.0-51.0) L 07/09/21 19:50 [place] % (Auto) 6.2 % (0.0-13.0) 07/09/21 19:50 Eos % (Auto) 0.5 % (0.9-2.9) L 07/09/21 19:50 Baso % (Auto) 0.4 % (0.2-1.0) 07/09/21 19:50 Neut # (Auto) 8.0 x10^3/uL (2.2-4.8) H 07/09/21 19:50 Lymph # (Auto) 0.5 X10^3/uL (1.3-2.9) L 07/09/21 19:50 [place] # (Auto) 0.6 x10^3/uL (0.3-0.8) 07/09/21 19:50 Eos # (Auto) 0.0 x10^3/uL (0.0-0.2) 07/09/21 19:50 Baso # (Auto) 0.0 X10^3/uL (0.0-0.1) 07/09/21 19:50 Absolute Nucleated RBC 0.0 /100WBC 07/09/21 19:50 Sample Site Lr 07/09/21 20:37 ABG pH 7.320 (7.35-7.45) L 07/09/21 20:37 ABG pCO2 91.0 mmHg (35.0-45.0) H* 07/09/21 20:37 ABG pO2 105.0 mmHg (80.0-100.0) H 07/09/21 20:37 ABG HCO3 46.9 mmol/L (22-26) H* 07/09/21 20:37 ABG O2 Saturation 98.0 % (90-100) 07/09/21 20:37 ABG Base Excess 16.6 mmol/L (-2.0-2.0) H 07/09/21 20:37 Jani Test Pos 07/09/21 20:37 A-a Gradient 38.0 mmHg 07/09/21 20:37 FiO2 36.0 07/09/21 20:37 Blood Gas Comments Alejandra well sw 07/09/21 20:37 Sodium 147 mmol/L (136-145) H 07/09/21 19:50 Corrected Sodium TNP 07/09/21 19:50 Potassium 4.3 mmol/L (3.5-5.1) 07/09/21 19:50 Chloride 106 mmol/L (98-107) 07/09/21 19:50 Carbon Dioxide 42.0 mmol/L (21-32) H* 07/09/21 19:50 BUN 14 mg/dL (7-18) 07/09/21 19:50 Creatinine 0.43 mg/dL (0.70-1.30) L 07/09/21 19:50 Est GFR (MDRD) Af Amer > 60 (>60) 07/09/21 19:50 Est GFR (MDRD) Non-Af > 60 (>60) 07/09/21 19:50 Glucose 76 mg/dL (65-99) 07/09/21 19:50 Calcium 8.6 mg/dL (8.5-10.1) 07/09/21 19:50 Corrected Calcium 9.7 mg/dL (8.5-10.1) 07/09/21 19:50 Total Bilirubin 0.30 mg/dL (0.2-1.0) 07/09/21 19:50 AST 22 Units/L (15-37) 07/09/21 19:50 ALT 33 Units/L (12-78) 07/09/21 19:50 Alkaline Phosphatase 72 Units/L (46-116) 07/09/21 19:50 Creatine Kinase 25 Units/L (39-308) L 07/09/21 19:50 CK-MB (CK-2) 1.4 ng/mL (0-4.0) 07/09/21 19:50 CK/CKMB % Calc 5.6 % (<4) 07/09/21 19:50 Troponin I 0.04 ng/mL (0-1.5) 07/09/21 19:50 Total Protein 5.9 g/dL (6.4-8.2) L 07/09/21 19:50 Albumin 2.6 g/dL (3.4-5.0) L 07/09/21 19:50 Globulin 3.3 g/dL (2.5-4.5) 07/09/21 19:50 Albumin/Globulin Ratio 0.8 Ratio (1.1-2.1) L 07/09/21 19:50 SARS-CoV-2 (PCR) Negative (NEGATIVE) 07/09/21 21:58 Influenza Type A (PCR) Negative (NEGATIVE) 07/09/21 21:58 Influenza Type B (PCR) Negative (NEGATIVE) 07/09/21 21:58 RSV (PCR) Negative (NEGATIVE) 07/09/21 21:58 Opioid Opioid Risk Tool Age (Emigdio box if 16-45): No History of Preadolescent Sexual Abuse: No Total: 0 Total Score Risk Category: Low Risk Copyright: Kenyon HINOJOSA predicting aberrant behaviors
--- NOTE | 2021-07-09 20:01 | RAD ---
HISTORYSOBSTUDYCHEST, [facility] [place] [facility]TECHNIQUEChest radiographic imaging, AP portable projection, 1 imageFINDINGSNo cardiomegaly.Airspace opacities at the lung bases are slightly more prominent than on the previous exam.Lungs are hyperinflated.No pleural effusion.No pneumothorax.No acute osseous abnormality.IMPRESSION1. Airspace opacities at the lung bases are slightly more prominent than on the previous exam. Findings could represent developing infiltrates or atelectasis.2. Lungs are hyperinflated; concerning for COPD.Electronically signed by: Jeyson Alcaraz (Jul 09, 2021 19:59:59)
[2021-07-09 20:07] LABS: BASOPHILS % (AUTO) 0.4 % (0.2-1.0); EOSINOPHILS % (AUTO) 0.5 % (0.9-2.9); HEMATOCRIT 34.9 % (42.0-54.0); HEMOGLOBIN 11.6 g/dL (13.5-18.0); LYMPHOCYTES # (AUTO) 0.5 X10^3/uL (1.3-2.9); LYMPHOCYTES % (AUTO) 5.8 % (21.0-51.0); MEAN CORPUSCULAR HEMOGLOBIN 30.7 pg (27.0-34.0); MEAN CORPUSCULAR HGB CONC 33.2 g/dL (33.0-35.0); MEAN CORPUSCULAR VOLUME 92.3 fL (80.0-100.0); MEAN PLATELET VOLUME 7.6 fL (7.4-11.0); MONOCYTES # (AUTO) 0.6 x10^3/uL (0.3-0.8); MONOCYTES % (AUTO) 6.2 % (0.0-13.0); NEUTROPHILS % (AUTO) 87.1 % (42.0-75.0); PLATELET COUNT 228 X10^3/uL (150.0-450.0); RED BLOOD COUNT 3.78 X10^6/uL (4.7-6.0); RED CELL DISTRIBUTION WIDTH 14.8 % (11.6-16.5); WHITE BLOOD COUNT 9.2 X10^3/uL (3.6-10.0)
[2021-07-09 20:24] LABS: ALANINE AMINOTRANSFERASE 33 Units/L (12-78); ALBUMIN 2.6 g/dL (3.4-5.0); ALKALINE PHOSPHATASE 72 Units/L (46-116); ASPARTATE AMINO TRANSFERASE 22 Units/L (15-37); BLOOD UREA NITROGEN 14 mg/dL (7-18); CALCIUM 8.6 mg/dL (8.5-10.1); CHLORIDE 106 mmol/L (98-107); CKMB % 5.6 % (<4); COR CA(FOR HYPOALB) 9.7 mg/dL (8.5-10.1); CREATINE KINASE 25 Units/L (39-308); CREATINE KINASE MB 1.4 ng/mL (0-4.0); CREATININE 0.43 mg/dL (0.70-1.30); SODIUM 147 mmol/L (136-145); TOTAL PROTEIN 5.9 g/dL (6.4-8.2); TROPONIN I 0.04 ng/mL (0-1.5); eGFR NON BLACK RACES > 60 (>60)
[2021-07-09 20:53] LABS: ABG BASE EXCESS 16.6 mmol/L (-2.0-2.0)
[2021-07-09 20:54] LABS: ABG HCO3 46.9 mmol/L (22-26)
[2021-07-09 20:55] LABS: ABG ALLEN TEST POS
[2021-07-10] MEDS ORDERED: SALINE 3% 15 ML NEB TX NEB ONE (00:21)
[2021-07-10] MEDS ORDERED: SALINE 3% 15 ML NEB TX ONE (00:27)
[2021-07-10] MEDS ORDERED: XOPENEX 1.25 MG/3 ML NEBULE NEB ONE (00:27)
[2021-07-10] MEDS: XOPENEX 1.25 MG/3 ML NEBULE NEB SCH ×5 (00:30→21:06)
[2021-07-10 01:56] VITALS: BMI 19.2
[2021-07-10 02:02] LABS: CKMB % 5.8 % (<4); CREATINE KINASE 24 Units/L (39-308); CREATINE KINASE MB 1.4 ng/mL (0-4.0); TROPONIN I < 0.02 ng/mL (0-1.5)
[2021-07-10 04:34] LABS: ABG BASE EXCESS 18.2 mmol/L (-2.0-2.0)
[2021-07-10 04:35] LABS: ABG ALLEN TEST POS; ABG HCO3 47.3 mmol/L (22-26)
[2021-07-10 05:07] LABS: BASOPHILS % (AUTO) 0.5 % (0.2-1.0); EOSINOPHILS # (AUTO) 0.1 x10^3/uL (0.0-0.2); EOSINOPHILS % (AUTO) 1.5 % (0.9-2.9); HEMATOCRIT 31.3 % (42.0-54.0); HEMOGLOBIN 10.5 g/dL (13.5-18.0); LYMPHOCYTES # (AUTO) 0.5 X10^3/uL (1.3-2.9); LYMPHOCYTES % (AUTO) 6.8 % (21.0-51.0); MEAN CORPUSCULAR HEMOGLOBIN 30.7 pg (27.0-34.0); MEAN CORPUSCULAR HGB CONC 33.5 g/dL (33.0-35.0); MEAN CORPUSCULAR VOLUME 91.9 fL (80.0-100.0); MEAN PLATELET VOLUME 8.1 fL (7.4-11.0); MONOCYTES # (AUTO) 0.4 x10^3/uL (0.3-0.8); MONOCYTES % (AUTO) 5.8 % (0.0-13.0); NEUTROPHILS # (AUTO) 6.1 x10^3/uL (2.2-4.8); NEUTROPHILS % (AUTO) 85.4 % (42.0-75.0); PLATELET COUNT 207 X10^3/uL (150.0-450.0); RED CELL DISTRIBUTION WIDTH 15.1 % (11.6-16.5); WHITE BLOOD COUNT 7.2 X10^3/uL (3.6-10.0)
[2021-07-10 05:46] LABS: ALANINE AMINOTRANSFERASE 27 Units/L (12-78); ALBUMIN 2.2 g/dL (3.4-5.0); ALKALINE PHOSPHATASE 62 Units/L (46-116); ASPARTATE AMINO TRANSFERASE 19 Units/L (15-37); BLOOD UREA NITROGEN 13 mg/dL (7-18); CALCIUM 8.3 mg/dL (8.5-10.1); CHLORIDE 107 mmol/L (98-107); CKMB % 5.5 % (<4); COR CA(FOR HYPOALB) 9.7 mg/dL (8.5-10.1); COR NA(FOR HYPERGLY) 147 mmol/L (136-145); CREATINE KINASE 22 Units/L (39-308); CREATINE KINASE MB 1.2 ng/mL (0-4.0); CREATININE 0.36 mg/dL (0.70-1.30); MAGNESIUM 2.2 mg/dL (1.7-2.9); SODIUM 146 mmol/L (136-145); TROPONIN I < 0.02 ng/mL (0-1.5); eGFR NON BLACK RACES > 60 (>60)
[2021-07-10 05:49] LABS: CARBON DIOXIDE 41.7 mmol/L (21-32)
[2021-07-10] MEDS ORDERED: POTASSIUM CHLORIDE LIQ 20 MEQ UDC PO PRN (07:01)
[2021-07-10] MEDS ORDERED: KLOR-CON PO PRN (07:01)
[2021-07-10] MEDS ORDERED: MICRO K EXTEN CAP 10 MEQ PO PRN (07:01)
[2021-07-10] MEDS ORDERED: MAGNESIUM SULFATE 1 GRAM/100 mL PREMIX 1 G/100 ML BAG IV PRN (07:01)
[2021-07-10] MEDS ORDERED: POTASSIUM CHL 60 MEQ/NS 0.45% 500 ML IV PRN (07:01)
[2021-07-10] MEDS ORDERED: K-RIDER 10 MEQ/NS 100 ML 10 MEQ/100 ML BAG IV PRN (07:01)
[2021-07-10] MEDS ORDERED: POTASSIUM CHL 40 MEQ/NS 0.45% 500 ML IV PRN (07:01)
[2021-07-10] MEDS ORDERED: K-DUR TAB 20 MEQ PO PRN (07:01)
[2021-07-10] MEDS: PULMICORT NEB TX 0.5 MG NEB SCH ×2 (09:32→21:06)
[2021-07-10 09:39] LABS: BILIRUBIN,URINE NEGATIVE (NEGATIVE); BLOOD/HEMOGLOBIN,URINE 1+ (NEGATIVE); GLUCOSE, URINE NEGATIVE (NEGATIVE); KETONES,URINE NEGATIVE (NEGATIVE); LEUKOCYTE ESTERASE ,URINE 1+ (NEGATIVE); NITRITES,URINE NEGATIVE (NEGATIVE); PROTEIN,URINE NEGATIVE (NEGATIVE); UROBILINOGEN,URINE NORMAL (NORMAL)
[2021-07-10 09:49] LABS: APPEARANCE,URINE CLEAR (CLEAR); BACTERIA,URINE TRACE /HPF (NEGATIVE); COLOR,URINE YELLOW (YELLOW); MUCUS,URINE MODERATE /HPF (NEGATIVE); RBC,URINE 0-2 /HPF (0-3); SQUAMOUS EPITHELIAL CELL,UR RARE /HPF (NEGATIVE)
[2021-07-10] MEDS ORDERED: ALBUMIN HUMAN 25%- 100 ML 100 ML IV ONE (10:14)
[2021-07-10] MEDS ORDERED: SOLU-Medrol 125 MG VIAL IVP ONE (10:23)
[2021-07-10 10:32] LABS: BASOPHILS % (AUTO) 0.4 % (0.2-1.0); EOSINOPHILS # (AUTO) 0.2 x10^3/uL (0.0-0.2); EOSINOPHILS % (AUTO) 2.2 % (0.9-2.9); HEMATOCRIT 35.4 % (42.0-54.0); HEMOGLOBIN 11.5 g/dL (13.5-18.0); LYMPHOCYTES # (AUTO) 0.5 X10^3/uL (1.3-2.9); MEAN CORPUSCULAR HGB CONC 32.4 g/dL (33.0-35.0); MEAN CORPUSCULAR VOLUME 92.5 fL (80.0-100.0); MEAN PLATELET VOLUME 7.6 fL (7.4-11.0); MONOCYTES # (AUTO) 0.4 x10^3/uL (0.3-0.8); MONOCYTES % (AUTO) 5.4 % (0.0-13.0); NEUTROPHILS # (AUTO) 6.7 x10^3/uL (2.2-4.8); PLATELET COUNT 225 X10^3/uL (150.0-450.0); RED BLOOD COUNT 3.83 X10^6/uL (4.7-6.0); RED CELL DISTRIBUTION WIDTH 14.9 % (11.6-16.5); WHITE BLOOD COUNT 7.8 X10^3/uL (3.6-10.0)
[2021-07-10 10:45] LABS: ALANINE AMINOTRANSFERASE 28 Units/L (12-78); ALBUMIN 2.6 g/dL (3.4-5.0); ALKALINE PHOSPHATASE 73 Units/L (46-116); ASPARTATE AMINO TRANSFERASE 17 Units/L (15-37); BLOOD UREA NITROGEN 12 mg/dL (7-18); CALCIUM 8.6 mg/dL (8.5-10.1); CHLORIDE 105 mmol/L (98-107); COR CA(FOR HYPOALB) 9.7 mg/dL (8.5-10.1); CREATININE 0.53 mg/dL (0.70-1.30); SODIUM 146 mmol/L (136-145); TOTAL PROTEIN 5.6 g/dL (6.4-8.2); eGFR NON BLACK RACES > 60 (>60)
[2021-07-10 10:48] LABS: CARBON DIOXIDE 42.8 mmol/L (21-32)
[2021-07-10] MEDS ORDERED: NS 1/2 1,000 ML IV 1,000 ML IV ONE (10:53)
[2021-07-10] MEDS: NS 1/2 1,000 ML IV 1,000 ML IV SCH (10:57)
[2021-07-10] MEDS: BROVANA IN SCH ×2 (10:57→21:06)
[2021-07-10] MEDS: VIBRAMYCIN 100 MG in D5W 250 ML IV 250 ML IV SCH ×2 (10:57→21:30)
[2021-07-10] MEDS: Atrovent NEB TX 0.02% NEB SCH ×2 (10:57→21:06)
[2021-07-10] MEDS: FORTAZ or TAZICEF VIAL INJ 1 G in NS 100 ML IV + SPIKE MINIBAG* 100 ML IV SCH ×3 (10:57→22:20)
[2021-07-10] MEDS: SOLU-Medrol 40 MG VIAL IVP SCH ×2 (15:28→21:30)
--- NOTE | 2021-07-10 15:28 | RAD ---
Chest AP portableIndication: PneumoniaComparison: July 09, 2021FINDINGSThere is no pneumothorax. Heart size is normal. Monitoring leads obscure detail. Lungs are hyperinflated with bibasilar opacities, similar to the prior. Effusions and/or atelectasis possible. Underlying infiltrate not entirely excluded.IMPRESSIONCOPD and chronic lung changes with bibasilar opacities, similar to the prior. Follow-up to resolution.Electronically signed by: RISSA NELSON (Jul 10, 2021 15:26:02)
--- NOTE | 2021-07-10 18:05 | DR.H&P ---
H&P History & Physical for Day of: H&P Date: 07/09/21 Chief Complaint Chief Complaint: SOB Allergies Allergies Allergy/AdvReac Type Severity Reaction Status Date / Time No Known Drug Allergies Allergy Verified 06/03/21 17:48 History of Present Illness History of Present Illness: 76 yo wm with acute onset of wheezing and SOB. He had recently gotten out of hospital for treatment for pneumonia. He does have a long history of COPD which is fairly advanced at tis time. Evaluation in the ED revealed he had some rhonchi and CXR showed possible infiltrates vs. at electasis. He was also noted to have a pCO2 of 91. Past Medical History Past Medical History: Arthritis, COPD and GERD Past Surgical History Surgical History: No History Family History Family Medical History: Cancer Social History Does patient currently use any type of tobacco product: No (stopped 20 yrs ago) Have you used tobacco products in the last 12 months: No Type of Tobacco Use: None Does any household member use tobacco: No Alcohol Use: None Medications Home Medications: No Known Drug Allergies Allergy (Verified 06/03/21 17:48) Labs Result Diagrams: 07/10/21 10:15 07/10/21 10:15 Labs: 07/10/21 16:36 Sputum - Expectorated Sputum - Final 07/10/21 00:50 Sputum - Expectorated Sputum - Final Laboratory WBC 7.8 X10^3/uL (3.6-10.0) 07/10/21 10:15 RBC 3.83 X10^6/uL (4.7-6.0) L 07/10/21 10:15 Hgb 11.5 g/dL (13.5-18.0) L 07/10/21 10:15 Hct 35.4 % (42.0-54.0) L 07/10/21 10:15 MCV 92.5 fL (80.0-100.0) 07/10/21 10:15 MCH 30.0 pg (27.0-34.0) 07/10/21 10:15 MCHC 32.4 g/dL (33.0-35.0) L 07/10/21 10:15 RDW 14.9 % (11.6-16.5) 07/10/21 10:15 Plt Count 225 X10^3/uL (150.0-450.0) 07/10/21 10:15 MPV 7.6 fL (7.4-11.0) 07/10/21 10:15 Neut % (Auto) 85.0 % (42.0-75.0) H 07/10/21 10:15 Lymph % (Auto) 7.0 % (21.0-51.0) L 07/10/21 10:15 [place] % (Auto) 5.4 % (0.0-13.0) 07/10/21 10:15 Eos % (Auto) 2.2 % (0.9-2.9) 07/10/21 10:15 Baso % (Auto) 0.4 % (0.2-1.0) 07/10/21 10:15 Neut # (Auto) 6.7 x10^3/uL (2.2-4.8) H 07/10/21 10:15 Lymph # (Auto) 0.5 X10^3/uL (1.3-2.9) L 07/10/21 10:15 [place] # (Auto) 0.4 x10^3/uL (0.3-0.8) 07/10/21 10:15 Eos # (Auto) 0.2 x10^3/uL (0.0-0.2) 07/10/21 10:15 Baso # (Auto) 0.0 X10^3/uL (0.0-0.1) 07/10/21 10:15 Absolute Nucleated RBC 0.0 /100WBC 07/10/21 10:15 PT 12.3 SECONDS (11.8-14.3) 07/10/21 04:37 INR Target Range - 07/10/21 04:37 INR 0.96 (0.8-1.3) 07/10/21 04:37 APTT 26.2 SECONDS (22.9-36.5) 07/10/21 04:37 PTT Comment - 07/10/21 04:37 Sample Site Lr 07/10/21 04:28 ABG pH 7.380 (7.35-7.45) 07/10/21 04:28 ABG pCO2 80.0 mmHg (35.0-45.0) H* 07/10/21 04:28 ABG pO2 64.0 mmHg (80.0-100.0) L 07/10/21 04:28 ABG HCO3 47.3 mmol/L (22-26) H* 07/10/21 04:28 ABG O2 Saturation 92.0 % (90-100) 07/10/21 04:28 ABG Base Excess 18.2 mmol/L (-2.0-2.0) H 07/10/21 04:28 Jani Test Pos 07/10/21 04:28 A-a Gradient 50.0 mmHg 07/10/21 04:28 FiO2 30.0 07/10/21 04:28 Blood Gas Comments Alejandra well ae 07/10/21 04:28 Sodium 146 mmol/L (136-145) H 07/10/21 10:15 Corrected Sodium TNP 07/10/21 10:15 Potassium 4.0 mmol/L (3.5-5.1) 07/10/21 10:15 Chloride 105 mmol/L (98-107) 07/10/21 10:15 Carbon Dioxide 42.8 mmol/L (21-32) H* 07/10/21 10:15 BUN 12 mg/dL (7-18) 07/10/21 10:15 Creatinine 0.53 mg/dL (0.70-1.30) L 07/10/21 10:15 Est GFR (MDRD) Af Amer > 60 (>60) 07/10/21 10:15 Est GFR (MDRD) Non-Af > 60 (>60) 07/10/21 10:15 Glucose 84 mg/dL (65-99) 07/10/21 10:15 Calcium 8.6 mg/dL (8.5-10.1) 07/10/21 10:15 Corrected Calcium 9.7 mg/dL (8.5-10.1) 07/10/21 10:15 Magnesium 2.3 mg/dL (1.7-2.9) 07/10/21 07:35 Total Bilirubin 0.30 mg/dL (0.2-1.0) 07/10/21 10:15 AST 17 Units/L (15-37) 07/10/21 10:15 ALT 28 Units/L (12-78) 07/10/21 10:15 Alkaline Phosphatase 73 Units/L (46-116) 07/10/21 10:15 Creatine Kinase 22 Units/L (39-308) L 07/10/21 04:37 CK-MB (CK-2) 1.2 ng/mL (0-4.0) 07/10/21 04:37 CK/CKMB % Calc 5.5 % (<4) 07/10/21 04:37 Troponin I < 0.02 ng/mL (0-1.5) 07/10/21 04:37 Total Protein 5.6 g/dL (6.4-8.2) L 07/10/21 10:15 Albumin 2.6 g/dL (3.4-5.0) L 07/10/21 10:15 Globulin 3.0 g/dL (2.5-4.5) 07/10/21 10:15 Albumin/Globulin Ratio 0.9 Ratio (1.1-2.1) L 07/10/21 10:15 Specimen Type Clean catch urine 07/10/21 08:04 Urine Color Yellow (YELLOW) 07/10/21 08:04 Urine Appearance Clear (CLEAR) 07/10/21 08:04 Urine pH 5.0 (5.0 - 8.0) 07/10/21 08:04 Ur Specific [place] 1.020 (1.000-1.030) 07/10/21 08:04 Urine Protein Negative (NEGATIVE) 07/10/21 08:04 Urine Glucose (UA) Negative (NEGATIVE) 07/10/21 08:04 Urine Ketones Negative (NEGATIVE) 07/10/21 08:04 Urine Occult Blood 1+ (NEGATIVE) 07/10/21 08:04 Urine Nitrite Negative (NEGATIVE) 07/10/21 08:04 Urine Bilirubin Negative (NEGATIVE) 07/10/21 08:04 Urine Urobilinogen Normal (NORMAL) 07/10/21 08:04 Ur Leukocyte Esterase 1+ (NEGATIVE) 07/10/21 08:04 Urine RBC 0-2 /HPF (0-3) 07/10/21 08:04 Urine WBC 3-5 /HPF (0-5) 07/10/21 08:04 Ur Squamous Epith Cells Rare /HPF (NEGATIVE) 07/10/21 08:04 Urine Bacteria Trace /HPF (NEGATIVE) 07/10/21 08:04 Urine Mucus Moderate /HPF (NEGATIVE) 07/10/21 08:04 Ur Culture Indicated? No/not indicated 07/10/21 08:04 SARS-CoV-2 (PCR) Negative (NEGATIVE) 07/09/21 21:58 Influenza Type A (PCR) Negative (NEGATIVE) 07/09/21 21:58 Influenza Type B (PCR) Negative (NEGATIVE) 07/09/21 21:58 RSV (PCR) Negative (NEGATIVE) 07/09/21 21:58 Review of Systems Constitutional: No Symptoms Reported Eyes: No Symptoms Reported ENT: No Symptoms Reported Respiratory: Shortness of Breath and Wheezing Cardiovascular: No Symptoms Reported Gastrointestinal: No Symptoms Reported Genitourinary: No Symptoms Reported Musculoskeletal: No Symptoms Reported Skin: No Symptoms Reported Neurological: Weakness Physical Exam Vital Signs: Temperature 97.6 F Pulse Rate [Apical] 112 Pulse Rate 111 Respiratory Rate 34 Blood Pressure [Left Arm] 115/66 Blood Pressure 183/84 O2 Sat by Pulse Oximetry 96 Oriented: Normal Eyes: Normal Ear: Normal Nose: Normal Throat: Normal Respiratory: Rhonchi Throughout Cardiovascular: Normal : Normal Auscultation: Bowel Sounds: Normal Palpation: Normal Tenderness: Normal Skin: Normal Musculoskeletal: Normal Psychiatric: Normal Mood Description: Calm Affect: Normal Speech Pattern: Clear and Appropriate Assessment/Plan (1) Acute exacerbation of chronic obstructive pulmonary disease: Status: Acute Plan: Nebs, IV Solumedrol. Inhaled steroids. (2) Acute respiratory failure with hypoxia and hypercarbia: Narrative Support Text: O2 down from 4 L at home which caused him to retain CO2. Status: Acute Plan: Continue O2 at 3.5 L (3) Bronchopneumonia: Status: Acute Plan: Pneumonia protocol with IV Fortaz and Vibramycin. (4) Acute respiratory insufficiency: Status: Acute Plan: Monitor for improvement. Review H&P Reviewed: Yes Patient was examined?: Yes
--- NOTE | 2021-07-10 18:28 | PCM.PROG ---
Progress Note Progress Note for Day of Date of Exam: 07/10/21 Subjective Subjective: Patient is feeling and breathing better this morning. He has no new complaints today. His daughter is asking if he could get a bipap machine at home. I instructed her to speak with his Primary Care Physician Dr. Rios about that. She understands. Past Medical Family Social History Past Med/Fam/Surg Hx: No changes since H&P Allergies: Allergies No Known Drug Allergies Allergy (Verified 06/03/21 17:48) Review of Systems ROS: No change since H&P Vital Signs and I&O's Vital Signs: Temperature 97.6 F Pulse Rate [Apical] 112 Pulse Rate 111 Respiratory Rate 34 Blood Pressure [Left Arm] 115/66 Blood Pressure 183/84 O2 Sat by Pulse Oximetry 96 Intake and Output: Intake & Output 07/08/21 07/09/21 07/10/21 07/11/21 11:59 11:59 11:59 11:59 Intake Total 300 / 300 758 / 758 Output Total 600 / 600 300 / 300 Balance -300 / -300 458 / 458 Physical Exam Oriented: Normal Eyes: Normal Ear: Normal Nose: Normal Throat: Normal Respiratory: Generalized, Diminished and Rhonchi Cardiovascular: Normal : Normal Auscultation: Bowel Sounds: Normal Tenderness: Normal Skin: Normal Musculoskeletal: Normal Psychiatric: Normal Mood Description: Calm Affect: Normal Speech Pattern: Clear and Appropriate Laboratory and Diagnostics Result Diagrams: 07/10/21 10:15 07/10/21 10:15 Labs: 07/10/21 16:36 Sputum - Expectorated Sputum - Final 07/10/21 00:50 Sputum - Expectorated Sputum - Final Laboratory WBC 7.8 X10^3/uL (3.6-10.0) 07/10/21 10:15 RBC 3.83 X10^6/uL (4.7-6.0) L 07/10/21 10:15 Hgb 11.5 g/dL (13.5-18.0) L 07/10/21 10:15 Hct 35.4 % (42.0-54.0) L 07/10/21 10:15 MCV 92.5 fL (80.0-100.0) 07/10/21 10:15 MCH 30.0 pg (27.0-34.0) 07/10/21 10:15 MCHC 32.4 g/dL (33.0-35.0) L 07/10/21 10:15 RDW 14.9 % (11.6-16.5) 07/10/21 10:15 Plt Count 225 X10^3/uL (150.0-450.0) 07/10/21 10:15 MPV 7.6 fL (7.4-11.0) 07/10/21 10:15 Neut % (Auto) 85.0 % (42.0-75.0) H 07/10/21 10:15 Lymph % (Auto) 7.0 % (21.0-51.0) L 07/10/21 10:15 [place] % (Auto) 5.4 % (0.0-13.0) 07/10/21 10:15 Eos % (Auto) 2.2 % (0.9-2.9) 07/10/21 10:15 Baso % (Auto) 0.4 % (0.2-1.0) 07/10/21 10:15 Neut # (Auto) 6.7 x10^3/uL (2.2-4.8) H 07/10/21 10:15 Lymph # (Auto) 0.5 X10^3/uL (1.3-2.9) L 07/10/21 10:15 [place] # (Auto) 0.4 x10^3/uL (0.3-0.8) 07/10/21 10:15 Eos # (Auto) 0.2 x10^3/uL (0.0-0.2) 07/10/21 10:15 Baso # (Auto) 0.0 X10^3/uL (0.0-0.1) 07/10/21 10:15 Absolute Nucleated RBC 0.0 /100WBC 07/10/21 10:15 PT 12.3 SECONDS (11.8-14.3) 07/10/21 04:37 INR Target Range - 07/10/21 04:37 INR 0.96 (0.8-1.3) 07/10/21 04:37 APTT 26.2 SECONDS (22.9-36.5) 07/10/21 04:37 PTT Comment - 07/10/21 04:37 Sample Site Lr 07/10/21 04:28 ABG pH 7.380 (7.35-7.45) 07/10/21 04:28 ABG pCO2 80.0 mmHg (35.0-45.0) H* 07/10/21 04:28 ABG pO2 64.0 mmHg (80.0-100.0) L 07/10/21 04:28 ABG HCO3 47.3 mmol/L (22-26) H* 07/10/21 04:28 ABG O2 Saturation 92.0 % (90-100) 07/10/21 04:28 ABG Base Excess 18.2 mmol/L (-2.0-2.0) H 07/10/21 04:28 Jani Test Pos 07/10/21 04:28 A-a Gradient 50.0 mmHg 07/10/21 04:28 FiO2 30.0 07/10/21 04:28 Blood Gas Comments Alejandra well ae 07/10/21 04:28 Sodium 146 mmol/L (136-145) H 07/10/21 10:15 Corrected Sodium TNP 07/10/21 10:15 Potassium 4.0 mmol/L (3.5-5.1) 07/10/21 10:15 Chloride 105 mmol/L (98-107) 07/10/21 10:15 Carbon Dioxide 42.8 mmol/L (21-32) H* 07/10/21 10:15 BUN 12 mg/dL (7-18) 07/10/21 10:15 Creatinine 0.53 mg/dL (0.70-1.30) L 07/10/21 10:15 Est GFR (MDRD) Af Amer > 60 (>60) 07/10/21 10:15 Est GFR (MDRD) Non-Af > 60 (>60) 07/10/21 10:15 Glucose 84 mg/dL (65-99) 07/10/21 10:15 Calcium 8.6 mg/dL (8.5-10.1) 07/10/21 10:15 Corrected Calcium 9.7 mg/dL (8.5-10.1) 07/10/21 10:15 Magnesium 2.3 mg/dL (1.7-2.9) 07/10/21 07:35 Total Bilirubin 0.30 mg/dL (0.2-1.0) 07/10/21 10:15 AST 17 Units/L (15-37) 07/10/21 10:15 ALT 28 Units/L (12-78) 07/10/21 10:15 Alkaline Phosphatase 73 Units/L (46-116) 07/10/21 10:15 Creatine Kinase 22 Units/L (39-308) L 07/10/21 04:37 CK-MB (CK-2) 1.2 ng/mL (0-4.0) 07/10/21 04:37 CK/CKMB % Calc 5.5 % (<4) 07/10/21 04:37 Troponin I < 0.02 ng/mL (0-1.5) 07/10/21 04:37 Total Protein 5.6 g/dL (6.4-8.2) L 07/10/21 10:15 Albumin 2.6 g/dL (3.4-5.0) L 07/10/21 10:15 Globulin 3.0 g/dL (2.5-4.5) 07/10/21 10:15 Albumin/Globulin Ratio 0.9 Ratio (1.1-2.1) L 07/10/21 10:15 Specimen Type Clean catch urine 07/10/21 08:04 Urine Color Yellow (YELLOW) 07/10/21 08:04 Urine Appearance Clear (CLEAR) 07/10/21 08:04 Urine pH 5.0 (5.0 - 8.0) 07/10/21 08:04 Ur Specific [place] 1.020 (1.000-1.030) 07/10/21 08:04 Urine Protein Negative (NEGATIVE) 07/10/21 08:04 Urine Glucose (UA) Negative (NEGATIVE) 07/10/21 08:04 Urine Ketones Negative (NEGATIVE) 07/10/21 08:04 Urine Occult Blood 1+ (NEGATIVE) 07/10/21 08:04 Urine Nitrite Negative (NEGATIVE) 07/10/21 08:04 Urine Bilirubin Negative (NEGATIVE) 07/10/21 08:04 Urine Urobilinogen Normal (NORMAL) 07/10/21 08:04 Ur Leukocyte Esterase 1+ (NEGATIVE) 07/10/21 08:04 Urine RBC 0-2 /HPF (0-3) 07/10/21 08:04 Urine WBC 3-5 /HPF (0-5) 07/10/21 08:04 Ur Squamous Epith Cells Rare /HPF (NEGATIVE) 07/10/21 08:04 Urine Bacteria Trace /HPF (NEGATIVE) 07/10/21 08:04 Urine Mucus Moderate /HPF (NEGATIVE) 07/10/21 08:04 Ur Culture Indicated? No/not indicated 07/10/21 08:04 SARS-CoV-2 (PCR) Negative (NEGATIVE) 07/09/21 21:58 Influenza Type A (PCR) Negative (NEGATIVE) 07/09/21 21:58 Influenza Type B (PCR) Negative (NEGATIVE) 07/09/21 21:58 RSV (PCR) Negative (NEGATIVE) 07/09/21 21:58 Radiology Reviewed: Yes Plan (1) Acute exacerbation of chronic obstructive pulmonary disease: Status: Acute Narrative Support Text: Improved since admission. Plan: Nebs, IV Solumedrol. Inhaled steroids. (2) Acute respiratory failure with hypoxia and hypercarbia: Status: Acute Plan: Continue O2 at 3.5 L. Titrate down as tolerated per patient. (3) Bronchopneumonia: Status: Acute Plan: Pneumonia protocol with IV Fortaz and Vibramycin. (4) Acute respiratory insufficiency: Status: Acute Narrative Support Text: Improved since admission. Plan: Monitor for improvement.
[2021-07-11] MEDS ORDERED: NS 1/2 1,000 ML IV 1,000 ML IV ONE ×2 (03:48→15:09)
[2021-07-11 05:13] LABS: BASOPHILS % (AUTO) 0 % (0.2-1.0); HEMATOCRIT 28.2 % (42.0-54.0); HEMOGLOBIN 9.5 g/dL (13.5-18.0); LYMPHOCYTES # (AUTO) 0.2 X10^3/uL (1.3-2.9); LYMPHOCYTES % (AUTO) 2.3 % (21.0-51.0); MEAN CORPUSCULAR HEMOGLOBIN 30.7 pg (27.0-34.0); MEAN CORPUSCULAR HGB CONC 33.7 g/dL (33.0-35.0); MEAN CORPUSCULAR VOLUME 91.2 fL (80.0-100.0); MEAN PLATELET VOLUME 7.8 fL (7.4-11.0); MONOCYTES # (AUTO) 0 x10^3/uL (0.3-0.8); MONOCYTES % (AUTO) 0.4 % (0.0-13.0); NEUTROPHILS # (AUTO) 7.2 x10^3/uL (2.2-4.8); NEUTROPHILS % (AUTO) 97.3 % (42.0-75.0); PLATELET COUNT 204 X10^3/uL (150.0-450.0); RED BLOOD COUNT 3.09 X10^6/uL (4.7-6.0); RED CELL DISTRIBUTION WIDTH 14.8 % (11.6-16.5); WHITE BLOOD COUNT 7.4 X10^3/uL (3.6-10.0)
[2021-07-11 05:29] LABS: ALANINE AMINOTRANSFERASE 22 Units/L (12-78); ALBUMIN 2.5 g/dL (3.4-5.0); ALKALINE PHOSPHATASE 53 Units/L (46-116); ASPARTATE AMINO TRANSFERASE 13 Units/L (15-37); BLOOD UREA NITROGEN 12 mg/dL (7-18); CALCIUM 8.4 mg/dL (8.5-10.1); CHLORIDE 104 mmol/L (98-107); COR CA(FOR HYPOALB) 9.6 mg/dL (8.5-10.1); COR NA(FOR HYPERGLY) 146 mmol/L (136-145); CREATININE 0.47 mg/dL (0.70-1.30); SODIUM 144 mmol/L (136-145); TOTAL PROTEIN 5.1 g/dL (6.4-8.2); eGFR NON BLACK RACES > 60 (>60)
[2021-07-11 05:46] LABS: CARBON DIOXIDE 39.1 mmol/L (21-32)
[2021-07-11 05:47] LABS: PLATELET MORPHOLOGY COMMENT NORMAL (NORMAL)
[2021-07-11] MEDS: NS 1/2 1,000 ML IV 1,000 ML IV SCH ×2 (06:15→13:47)
[2021-07-11] MEDS: FORTAZ or TAZICEF VIAL INJ 1 G in NS 100 ML IV + SPIKE MINIBAG* 100 ML IV SCH ×3 (06:26→21:19)
[2021-07-11] MEDS: SOLU-Medrol 40 MG VIAL IVP SCH ×3 (06:27→21:20)
[2021-07-11] MEDS: PULMICORT NEB TX 0.5 MG NEB SCH ×2 (09:00→20:51)
[2021-07-11] MEDS: XOPENEX 1.25 MG/3 ML NEBULE NEB SCH ×4 (09:00→20:51)
[2021-07-11] MEDS: BROVANA IN SCH ×2 (09:00→20:51)
[2021-07-11] MEDS: Atrovent NEB TX 0.02% NEB SCH ×2 (09:00→20:51)
[2021-07-11] MEDS: VIBRAMYCIN 100 MG in D5W 250 ML IV 250 ML IV SCH ×2 (09:26→20:00)
--- NOTE | 2021-07-11 15:24 | PCM.PROG ---
Progress Note Progress Note for Day of Date of Exam: 07/11/21 Subjective Subjective: Patient is feeling and breathing better this morning. No new problems overnight. Past Medical Family Social History Past Med/Fam/Surg Hx: No changes since H&P Allergies: Allergies No Known Drug Allergies Allergy (Verified 06/03/21 17:48) Review of Systems ROS: No change since H&P Vital Signs and I&O's Vital Signs: Temperature 98.2 F Pulse Rate [Apical] 112 Pulse Rate 94 Respiratory Rate 29 Blood Pressure [Left Arm] 115/66 Blood Pressure 130/63 O2 Sat by Pulse Oximetry 96 Intake and Output: Intake & Output 07/09/21 07/10/21 07/11/21 07/12/21 11:59 11:59 11:59 11:59 Intake Total 300 / 300 2658 / 2658 1310 / 1310 Output Total 600 / 600 301 / 301 Balance -300 / -300 2357 / 2357 1310 / 1310 Physical Exam Oriented: Normal Eyes: Normal Ear: Normal Nose: Normal Throat: Normal Respiratory: Generalized, Diminished and Rhonchi Cardiovascular: Normal : Normal Auscultation: Bowel Sounds: Normal Tenderness: Normal Skin: Normal Musculoskeletal: Normal Psychiatric: Normal Mood Description: Calm Affect: Normal Speech Pattern: Clear and Appropriate Laboratory and Diagnostics Result Diagrams: 07/11/21 04:35 07/11/21 04:35 Labs: 07/10/21 16:36 Sputum - Expectorated Sputum Sputum Culture - Preliminary 07/10/21 16:36 Sputum - Expectorated Sputum - Final 07/10/21 00:50 Sputum - Expectorated Sputum Sputum Culture - Preliminary 07/10/21 00:50 Sputum - Expectorated Sputum - Final Laboratory WBC 7.4 X10^3/uL (3.6-10.0) 07/11/21 04:35 RBC 3.09 X10^6/uL (4.7-6.0) L 07/11/21 04:35 Hgb 9.5 g/dL (13.5-18.0) L D 07/11/21 04:35 Hct 28.2 % (42.0-54.0) L 07/11/21 04:35 MCV 91.2 fL (80.0-100.0) 07/11/21 04:35 MCH 30.7 pg (27.0-34.0) 07/11/21 04:35 MCHC 33.7 g/dL (33.0-35.0) 07/11/21 04:35 RDW 14.8 % (11.6-16.5) 07/11/21 04:35 Plt Count 204 X10^3/uL (150.0-450.0) 07/11/21 04:35 Plt Count Comment Adequate (ADEQUATE) 07/11/21 04:35 MPV 7.8 fL (7.4-11.0) 07/11/21 04:35 Neut % (Auto) 97.3 % (42.0-75.0) H 07/11/21 04:35 Lymph % (Auto) 2.3 % (21.0-51.0) L 07/11/21 04:35 [place] % (Auto) 0.4 % (0.0-13.0) 07/11/21 04:35 Eos % (Auto) 0.0 % (0.9-2.9) L 07/11/21 04:35 Baso % (Auto) 0 % (0.2-1.0) L 07/11/21 04:35 Neut # (Auto) 7.2 x10^3/uL (2.2-4.8) H 07/11/21 04:35 Lymph # (Auto) 0.2 X10^3/uL (1.3-2.9) L 07/11/21 04:35 [place] # (Auto) 0 x10^3/uL (0.3-0.8) L 07/11/21 04:35 Eos # (Auto) 0.0 x10^3/uL (0.0-0.2) 07/11/21 04:35 Baso # (Auto) 0.0 X10^3/uL (0.0-0.1) 07/11/21 04:35 Absolute Nucleated RBC 0.0 /100WBC 07/11/21 04:35 Total Counted 100 07/11/21 04:35 Neutrophils % (Manual) 100 % (39-76) H 07/11/21 04:35 Lymphocytes % (Manual) Not Reportable 07/11/21 04:35 Plt Morphology Comment Normal (NORMAL) 07/11/21 04:35 RBC Morphology Normal (NORMAL) 07/11/21 04:35 PT 12.3 SECONDS (11.8-14.3) 07/10/21 04:37 INR Target Range - 07/10/21 04:37 INR 0.96 (0.8-1.3) 07/10/21 04:37 APTT 26.2 SECONDS (22.9-36.5) 07/10/21 04:37 PTT Comment - 07/10/21 04:37 Sample Site Lr 07/10/21 04:28 ABG pH 7.380 (7.35-7.45) 07/10/21 04:28 ABG pCO2 80.0 mmHg (35.0-45.0) H* 07/10/21 04:28 ABG pO2 64.0 mmHg (80.0-100.0) L 07/10/21 04:28 ABG HCO3 47.3 mmol/L (22-26) H* 07/10/21 04:28 ABG O2 Saturation 92.0 % (90-100) 07/10/21 04:28 ABG Base Excess 18.2 mmol/L (-2.0-2.0) H 07/10/21 04:28 Jani Test Pos 07/10/21 04:28 A-a Gradient 50.0 mmHg 07/10/21 04:28 FiO2 30.0 07/10/21 04:28 Blood Gas Comments Alejandra well ae 07/10/21 04:28 Sodium 144 mmol/L (136-145) 07/11/21 04:35 Corrected Sodium 146 mmol/L (136-145) H 07/11/21 04:35 Potassium 4.0 mmol/L (3.5-5.1) 07/11/21 04:35 Chloride 104 mmol/L (98-107) 07/11/21 04:35 Carbon Dioxide 39.1 mmol/L (21-32) H 07/11/21 04:35 BUN 12 mg/dL (7-18) 07/11/21 04:35 Creatinine 0.47 mg/dL (0.70-1.30) L 07/11/21 04:35 Est GFR (MDRD) Af Amer > 60 (>60) 07/11/21 04:35 Est GFR (MDRD) Non-Af > 60 (>60) 07/11/21 04:35 Glucose 163 mg/dL (65-99) H 07/11/21 04:35 Calcium 8.4 mg/dL (8.5-10.1) L 07/11/21 04:35 Corrected Calcium 9.6 mg/dL (8.5-10.1) 07/11/21 04:35 Magnesium 2.3 mg/dL (1.7-2.9) 07/10/21 07:35 Total Bilirubin 0.30 mg/dL (0.2-1.0) 07/11/21 04:35 AST 13 Units/L (15-37) L 07/11/21 04:35 ALT 22 Units/L (12-78) 07/11/21 04:35 Alkaline Phosphatase 53 Units/L (46-116) 07/11/21 04:35 Creatine Kinase 22 Units/L (39-308) L 07/10/21 04:37 CK-MB (CK-2) 1.2 ng/mL (0-4.0) 07/10/21 04:37 CK/CKMB % Calc 5.5 % (<4) 07/10/21 04:37 Troponin I < 0.02 ng/mL (0-1.5) 07/10/21 04:37 Total Protein 5.1 g/dL (6.4-8.2) L 07/11/21 04:35 Albumin 2.5 g/dL (3.4-5.0) L 07/11/21 04:35 Globulin 2.6 g/dL (2.5-4.5) 07/11/21 04:35 Albumin/Globulin Ratio 1.0 Ratio (1.1-2.1) L 07/11/21 04:35 Specimen Type Clean catch urine 07/10/21 08:04 Urine Color Yellow (YELLOW) 07/10/21 08:04 Urine Appearance Clear (CLEAR) 07/10/21 08:04 Urine pH 5.0 (5.0 - 8.0) 07/10/21 08:04 Ur Specific [place] 1.020 (1.000-1.030) 07/10/21 08:04 Urine Protein Negative (NEGATIVE) 07/10/21 08:04 Urine Glucose (UA) Negative (NEGATIVE) 07/10/21 08:04 Urine Ketones Negative (NEGATIVE) 07/10/21 08:04 Urine Occult Blood 1+ (NEGATIVE) 07/10/21 08:04 Urine Nitrite Negative (NEGATIVE) 07/10/21 08:04 Urine Bilirubin Negative (NEGATIVE) 07/10/21 08:04 Urine Urobilinogen Normal (NORMAL) 07/10/21 08:04 Ur Leukocyte Esterase 1+ (NEGATIVE) 07/10/21 08:04 Urine RBC 0-2 /HPF (0-3) 07/10/21 08:04 Urine WBC 3-5 /HPF (0-5) 07/10/21 08:04 Ur Squamous Epith Cells Rare /HPF (NEGATIVE) 07/10/21 08:04 Urine Bacteria Trace /HPF (NEGATIVE) 07/10/21 08:04 Urine Mucus Moderate /HPF (NEGATIVE) 07/10/21 08:04 Ur Culture Indicated? No/not indicated 07/10/21 08:04 SARS-CoV-2 (PCR) Negative (NEGATIVE) 07/09/21 21:58 Influenza Type A (PCR) Negative (NEGATIVE) 07/09/21 21:58 Influenza Type B (PCR) Negative (NEGATIVE) 07/09/21 21:58 RSV (PCR) Negative (NEGATIVE) 07/09/21 21:58 Plan (1) Acute exacerbation of chronic obstructive pulmonary disease: Status: Acute Narrative Support Text: Improving. Plan: Nebs, IV Solumedrol. Inhaled steroids. (2) Acute respiratory failure with hypoxia and hypercarbia: Status: Acute Narrative Support Text: Overall improved. Plan: Continue O2 at 3.5 L. Titrate down as tolerated per patient. (3) Bronchopneumonia: Status: Acute Narrative Support Text: Improved. Plan: Pneumonia protocol with IV Fortaz and Vibramycin. (4) Acute respiratory insufficiency: Status: Acute Plan: Monitor for improvement.
[2021-07-12] MEDS: NS 1/2 1,000 ML IV 1,000 ML IV SCH (03:47)
[2021-07-12 04:52] LABS: BASOPHILS % (AUTO) 0.1 % (0.2-1.0); HEMATOCRIT 27.9 % (42.0-54.0); HEMOGLOBIN 9.5 g/dL (13.5-18.0); LYMPHOCYTES # (AUTO) 0.2 X10^3/uL (1.3-2.9); LYMPHOCYTES % (AUTO) 2.2 % (21.0-51.0); MEAN CORPUSCULAR HEMOGLOBIN 30.8 pg (27.0-34.0); MEAN CORPUSCULAR VOLUME 90.4 fL (80.0-100.0); MEAN PLATELET VOLUME 7.8 fL (7.4-11.0); MONOCYTES # (AUTO) 0.1 x10^3/uL (0.3-0.8); MONOCYTES % (AUTO) 1.1 % (0.0-13.0); NEUTROPHILS # (AUTO) 10.5 x10^3/uL (2.2-4.8); NEUTROPHILS % (AUTO) 96.6 % (42.0-75.0); PLATELET COUNT 232 X10^3/uL (150.0-450.0); RED BLOOD COUNT 3.08 X10^6/uL (4.7-6.0); WHITE BLOOD COUNT 10.8 X10^3/uL (3.6-10.0)
[2021-07-12] MEDS: FORTAZ or TAZICEF VIAL INJ 1 G in NS 100 ML IV + SPIKE MINIBAG* 100 ML IV SCH (05:13)
[2021-07-12] MEDS: SOLU-Medrol 40 MG VIAL IVP SCH (05:13)
[2021-07-12 05:14] LABS: ALANINE AMINOTRANSFERASE 20 Units/L (12-78); ALBUMIN 2.3 g/dL (3.4-5.0); ALKALINE PHOSPHATASE 49 Units/L (46-116); ASPARTATE AMINO TRANSFERASE 11 Units/L (15-37); BLOOD UREA NITROGEN 12 mg/dL (7-18); CALCIUM 8.5 mg/dL (8.5-10.1); CARBON DIOXIDE 39.3 mmol/L (21-32); CHLORIDE 106 mmol/L (98-107); COR CA(FOR HYPOALB) 9.9 mg/dL (8.5-10.1); COR NA(FOR HYPERGLY) 145 mmol/L (136-145); CREATININE 0.37 mg/dL (0.70-1.30); SODIUM 144 mmol/L (136-145); TOTAL PROTEIN 4.9 g/dL (6.4-8.2); eGFR NON BLACK RACES > 60 (>60)
[2021-07-12 05:15] LABS: PLATELET MORPHOLOGY COMMENT NORMAL (NORMAL)
--- NOTE | 2021-07-12 06:13 | RAD ---
HISTORYShortness of breathSTUDYChest AP [id number] t size is normal. Tyesha are normal. Lungs remain hyperinflated. Emphysematous changes appear to be present in the upper lobes. The right lung and left upper lung cohen are free of acute infiltrates. Increased density is present in the retrocardiac area of the left lower lobe obscuring the medial left hemidiaphragm. This could be due to pleural effusion, atelectasis, infiltrate or combination and is unchanged in appearance from the prior examination. Bony thorax is unremarkable.IMPRESSIONEmphysematous COPD unchangedRight lung, left upper lung cohen clearPersistent increased density retrocardiac area of the left lower lobe obscuring the medial left hemidiaphragm which could be on the basis of atelectasis, infiltrate, pleural effusion or combination and is unchanged.Electronically signed by: ALVIN MOHR (Jul 12, 2021 06:11:26)
[2021-07-12] MEDS: XOPENEX 1.25 MG/3 ML NEBULE NEB SCH ×2 (08:30→12:30)
[2021-07-12] MEDS: BROVANA IN SCH (08:30)
[2021-07-12] MEDS: PULMICORT NEB TX 0.5 MG NEB SCH (08:30)
[2021-07-12] MEDS: Atrovent NEB TX 0.02% NEB SCH (08:30)
[2021-07-12] MEDS ORDERED: PERCOCET TAB 5/325 MG PO PRN (08:38)
[2021-07-12] MEDS ORDERED: LASIX PO PRN (08:38)
[2021-07-12] MEDS ORDERED: CLARITIN PO SCH (09:00)
[2021-07-12] MEDS ORDERED: THEO-24 CAP 200 MG (24-HR) PO SCH (09:00)
[2021-07-12] MEDS ORDERED: PROSCAR PO SCH (09:00)
[2021-07-12] MEDS ORDERED: PEPCID TAB 40 MG PO SCH (09:00)
[2021-07-12] MEDS: VIBRAMYCIN 100 MG in D5W 250 ML IV 250 ML IV SCH (09:36)
[2021-07-12 10:58] VITALS: BP 144/64
[2021-07-12] MEDS ORDERED: FLOMAX PO SCH (21:00)
== END 2021-07-12 13:05 | disposition home health service (06) ==
LOC: ICU 18:32 → ER 18:32 → ICU 07-10 00:01
PROVIDERS: ADMIT Family Medicine; ATTEND Internal Medicine
DX: J96.01 Acute respiratory failure with hypoxia; J18.0 Bronchopneumonia, unspecified organism; J44.1 Chronic obstructive pulmonary disease with (acute) exacerbation; R06.02 Shortness of breath; E87.5 Hyperkalemia; J96.02 Acute respiratory failure with hypercapnia; Z20.822 Contact with and (suspected) exposure to COVID-19; R94.31 Abnormal electrocardiogram [ECG] [EKG]

== ENCOUNTER 2021-07-26 21:41 | Inpatient (IN) ==
[2021-07-26 21:51] LABS: ABG ALLEN TEST POS; ABG BASE EXCESS 28.6 mmol/L (-2.0-2.0); ABG HCO3 58.4 mmol/L (22-26)
[2021-07-26 22:01] VITALS: BMI 18.1
[2021-07-26 22:02] LABS: BASOPHILS % (AUTO) 0.1 % (0.2-1.0); EOSINOPHILS # (AUTO) 0.1 x10^3/uL (0.0-0.2); EOSINOPHILS % (AUTO) 0.8 % (0.9-2.9); HEMATOCRIT 34.3 % (42.0-54.0); HEMOGLOBIN 11.4 g/dL (13.5-18.0); LYMPHOCYTES # (AUTO) 0.6 X10^3/uL (1.3-2.9); LYMPHOCYTES % (AUTO) 6.6 % (21.0-51.0); MEAN CORPUSCULAR HEMOGLOBIN 30.2 pg (27.0-34.0); MEAN CORPUSCULAR HGB CONC 33.2 g/dL (33.0-35.0); MEAN CORPUSCULAR VOLUME 90.9 fL (80.0-100.0); MEAN PLATELET VOLUME 7.6 fL (7.4-11.0); MONOCYTES # (AUTO) 0.7 x10^3/uL (0.3-0.8); NEUTROPHILS # (AUTO) 7.7 x10^3/uL (2.2-4.8); NEUTROPHILS % (AUTO) 84.5 % (42.0-75.0); PLATELET COUNT 248 X10^3/uL (150.0-450.0); RED BLOOD COUNT 3.77 X10^6/uL (4.7-6.0); RED CELL DISTRIBUTION WIDTH 15.6 % (11.6-16.5); WHITE BLOOD COUNT 9.1 X10^3/uL (3.6-10.0)
--- NOTE | 2021-07-26 22:21 | DR.AMS ---
HPI Time Seen Time Seen by Provider: 07/26/21 22:02 PCP Primary Care Physician: DC HPI Comment HPI Comment: Brought in by family with confusion and problems breathing x two days; believes he took his oxygen off yesterday and his caught him as he was headed outside in the night; tonight, he became more confused and sob; family brought him to ER and states that during ride here, he "was fiddling with his oxygen on the way here"; sats in 50s as below. Complaint Chief Complaint:: PT IN ED VIA WHEELCHAIR WITH C/O PT BEING CONFUSED SINCE LAST NIGHT AND O2 SAT IN 50'S. UPON ARRIVAL TO ROOM PORTABLE O2 NOTED TO BE OFF, PLACED ON MONITOR O2 SAT 39%. PT PLACED ON 4L/NC. O2 SAT UP TO 96%. COVID-19 Coronavirus risk:travel/contact w/high risk person: No Has patient experienced Coronavirus symptoms: Yes Coronavirus symptoms experienced: Shortness of Breath Source History Provided: Family Member Mode of Arrival Mode of Arrival: Wheelchair Timing Onset of Chief Complaint: 07/25/21 PMH PMH Past Medical History: Yes Past Medical History: Arthritis, COPD and GERD Past Surgical History: No Surgical History: No History Family History History of Family Medical Conditions: Yes Family Medical History: Cancer Social History Does patient currently use any type of tobacco product: No Have you used tobacco products in the last 12 months: No Type of Tobacco Use: None Does any household member use tobacco: No Alcohol Use: None Do you use any recreational Drugs:: No Lives With: Spouse Lives Where: Home Travel Risk Coronavirus risk:travel/contact w/high risk person: No Has patient experienced Coronavirus symptoms: Yes Coronavirus symptoms experienced: Shortness of Breath Infectious screening In the last 2 months have you had wt loss of >10#?: NO Have you had fever, night sweats or hemotysis?: No Have you traveled outside the country in the last 6 months?: No Isolation: Droplet ROS Review of Systems Constitutional: No Symptoms Reported Eyes: No Symptoms Reported ENTM: No Symptoms Reported Cardiovascular: No Symptoms Reported Gastrointestinal/Abdominal: No Symptoms Reported Genitourinary: No Symptoms Reported Musculoskeletal: No Symptoms Reported Integumentary: No Symptoms Reported Hematologic/Lymphatic: No Symptoms Reported Endocrine: No Symptoms Reported PE Vitals Vital Signs: Temp Pulse Resp BP BP Pulse Ox 07/27/21 00:30 101 H 92 L 07/27/21 00:17 20 95 07/27/21 00:15 96 H 93 L 07/27/21 00:00 97 H 93 L 07/26/21 23:45 97 H 88 L 07/26/21 23:30 93 H 96 07/26/21 23:16 22 07/26/21 23:15 95 H 98 07/26/21 23:00 90 97 07/26/21 22:45 92 H 97 07/26/21 22:30 95 H 99 07/26/21 22:18 86 100 07/26/21 22:00 94 H 98 07/26/21 21:49 91 H 139/65 97 07/26/21 21:45 98.3 F 91 H 40 H 139/65 94 L 07/12/21 10:57 144/64 07/09/21 23:27 115/66 General Limitations: Language Barrier General Appearance: Alert Head Head Exam: Normal Inspection Eyes Eye exam: Normal Appearance ENT ENT Exam: Normal Exam External Ear Exam: Normal External Inspection Nose Exam: Normal Nose Exam Mouth Exam: Normal Inspection Throat Exam: Normal Inspection Neck Neck Exam: Normal Inspection Chest Chest Inspection: Normal Inspection Respiratory Respiratory Exam: Normal Lung Sounds Bilat Cardiovascular Cardiovascular Exam: Regular Rate and Normal Rhythm Abdominal Exam Abdominal Exam: Normal Inspection, Normal Bowel Sounds and Soft Extremities Extremities Exam: Normal Inspection Back Back Exam: Normal Inspection Psychological Psychiatric Exam: Normal Affect and Normal Mood Skin Skin Exam: Warm, Dry, Intact and Normal Color Other Exam Other Exam: pt initially coherent and responsive then starts talking about fixing tractors and describes people at bedside who are not there; believes he can go home because he wants to MDM Additional Information Obtained Additional Information Obtained From: Old Records and Family Differential Diagnosis Metabolic: Dehydration and Hypoxemia Infectious: Sepsis and UTI COURSE Consultation Call Returned: 02:20 (Dr Chou accepts admission) Education/Counseling Education/Counseling: Family Educated On: Treatment, Diagnosis and Prognosis Critical Care Notes Total Time (mins): 30 Critical Diagnosis: hypercapnic, hypoxic resp failure CO2 narcosis copd exacerbation chronic pansinusitis Critical Interventions: placed on bipap discussed with family and Dr Chou ROR Labs Reviewed Laboratory Results Reviewed?: Yes Result Diagrams: 07/26/21 21:54 07/26/21 21:54 Laboratory: WBC 9.1 X10^3/uL (3.6-10.0) 07/26/21 21:54 RBC 3.77 X10^6/uL (4.7-6.0) L 07/26/21 21:54 Hgb 11.4 g/dL (13.5-18.0) L 07/26/21 21:54 Hct 34.3 % (42.0-54.0) L 07/26/21 21:54 MCV 90.9 fL (80.0-100.0) 07/26/21 21:54 MCH 30.2 pg (27.0-34.0) 07/26/21 21:54 MCHC 33.2 g/dL (33.0-35.0) 07/26/21 21:54 RDW 15.6 % (11.6-16.5) 07/26/21 21:54 Plt Count 248 X10^3/uL (150.0-450.0) 07/26/21 21:54 MPV 7.6 fL (7.4-11.0) 07/26/21 21:54 Neut % (Auto) 84.5 % (42.0-75.0) H 07/26/21 21:54 Lymph % (Auto) 6.6 % (21.0-51.0) L 07/26/21 21:54 [place] % (Auto) 8.0 % (0.0-13.0) 07/26/21 21:54 Eos % (Auto) 0.8 % (0.9-2.9) L 07/26/21 21:54 Baso % (Auto) 0.1 % (0.2-1.0) L 07/26/21 21:54 Neut # (Auto) 7.7 x10^3/uL (2.2-4.8) H 07/26/21 21:54 Lymph # (Auto) 0.6 X10^3/uL (1.3-2.9) L 07/26/21 21:54 [place] # (Auto) 0.7 x10^3/uL (0.3-0.8) 07/26/21 21:54 Eos # (Auto) 0.1 x10^3/uL (0.0-0.2) 07/26/21 21:54 Baso # (Auto) 0.0 X10^3/uL (0.0-0.1) 07/26/21 21:54 Absolute Nucleated RBC 0.1 /100WBC 07/26/21 21:54 Sample Site Rrad 07/26/21 21:45 ABG pH 7.440 (7.35-7.45) 07/26/21 21:45 ABG pCO2 86.0 mmHg (35.0-45.0) H* 07/26/21 21:45 ABG pO2 70.0 mmHg (80.0-100.0) L 07/26/21 21:45 ABG HCO3 58.4 mmol/L (22-26) H* 07/26/21 21:45 ABG O2 Saturation 94.0 % (90-100) 07/26/21 21:45 ABG Base Excess 28.6 mmol/L (-2.0-2.0) H 07/26/21 21:45 Jani Test Pos 07/26/21 21:45 A-a Gradient 79.0 mmHg 07/26/21 21:45 FiO2 36.0 07/26/21 21:45 Blood Gas Comments Alejandra well ms 07/26/21 21:45 Sodium 148 mmol/L (136-145) H 07/26/21 21:54 Corrected Sodium TNP 07/26/21 21:54 Potassium 3.4 mmol/L (3.5-5.1) L 07/26/21 21:54 Chloride 97 mmol/L (98-107) L 07/26/21 21:54 Carbon Dioxide > 45.0 mmol/L (21-32) H* 07/26/21 21:54 BUN 9 mg/dL (7-18) 07/26/21 21:54 Creatinine 0.60 mg/dL (0.70-1.30) L 07/26/21 21:54 Est GFR (MDRD) Af Amer > 60 (>60) 07/26/21 21:54 Est GFR (MDRD) Non-Af > 60 (>60) 07/26/21 21:54 Glucose 96 mg/dL (65-99) 07/26/21 21:54 Calcium 9.3 mg/dL (8.5-10.1) 07/26/21 21:54 Corrected Calcium 10.2 mg/dL (8.5-10.1) H 07/26/21 21:54 Total Bilirubin 0.40 mg/dL (0.2-1.0) 07/26/21 21:54 AST 17 Units/L (15-37) 07/26/21 21:54 ALT 15 Units/L (12-78) 07/26/21 21:54 Alkaline Phosphatase 87 Units/L (46-116) 07/26/21 21:54 Creatine Kinase 14 Units/L (39-308) L 07/26/21 21:54 CK-MB (CK-2) < 1.0 ng/mL (0-4.0) 07/26/21 21:54 CK/CKMB % Calc 7.1 % (<4) 07/26/21 21:54 Troponin I < 0.02 ng/mL (0-1.5) 07/26/21 21:54 Total Protein 6.6 g/dL (6.4-8.2) 07/26/21 21:54 Albumin 2.9 g/dL (3.4-5.0) L 07/26/21 21:54 Globulin 3.7 g/dL (2.5-4.5) 07/26/21 21:54 Albumin/Globulin Ratio 0.8 Ratio (1.1-2.1) L 07/26/21 21:54 Specimen Type Clean catch urine 07/26/21 23:21 Urine Color Yellow (YELLOW) 07/26/21 23:21 Urine Appearance Clear (CLEAR) 07/26/21 23:21 Urine pH 6.0 (5.0 - 8.0) 07/26/21 23:21 Ur Specific [place] 1.020 (1.000-1.030) 07/26/21 23:21 Urine Protein Negative (NEGATIVE) 07/26/21 23:21 Urine Glucose (UA) Negative (NEGATIVE) 07/26/21 23:21 Urine Ketones Negative (NEGATIVE) 07/26/21 23: Urine Occult Blood Negative (NEGATIVE) 07/26/21 23:21 Urine Nitrite Negative (NEGATIVE) 07/26/21 23:21 Urine Bilirubin Negative (NEGATIVE) 07/26/21 23:21 Urine Urobilinogen Normal (NORMAL) 07/26/21 23:21 Ur Leukocyte Esterase Negative (NEGATIVE) 11/29/21 23:21 SARS-CoV-2 (PCR) Negative (NEGATIVE) 07/27/21 00:35 Influenza Type A (PCR) Negative (NEGATIVE) 07/27/21 00:35 Influenza Type B (PCR) Negative (NEGATIVE) 07/27/21 00:35 RSV (PCR) Negative (NEGATIVE) 07/27/21 00:35 Other Results Comments: co2 levels new; family reports hx co2 narcosis XRAY XRAY Interpreted by: Radiologist X-ray Results: pcxr: COPD and persistent but improving left basilar airspace disease. ct head: Mild cortical atrophy with microvascular ischemic white matter changes. No acute intracranial pathology. Chronic ethmoid, right frontal and left sphenoid sinusitis. Opioid Opioid Risk Tool Age (Emigdio box if 16-45): No History of Preadolescent Sexual Abuse: No Total: 0 Total Score Risk Category: Low Risk Copyright: Kenyon HINOJOSA predicting aberrant behaviors Diagnosis Discharge Problem: Acute hypercapnic respiratory failure, Acute respiratory failure with hypoxia and hypercarbia, Carbon dioxide narcosis, Acute confusion Chronic sinusitis Qualifiers: Sinusitis location: pansinusitis Qualified Code(s): J32.4 - Chronic pansinusitis Instructions Forms: [facility] Patient Portal Social Distancing
[2021-07-26 22:22] LABS: ALANINE AMINOTRANSFERASE 15 Units/L (12-78); ALBUMIN 2.9 g/dL (3.4-5.0); ALKALINE PHOSPHATASE 87 Units/L (46-116); ASPARTATE AMINO TRANSFERASE 17 Units/L (15-37); BLOOD UREA NITROGEN 9 mg/dL (7-18); CALCIUM 9.3 mg/dL (8.5-10.1); CHLORIDE 97 mmol/L (98-107); CKMB % 7.1 % (<4); COR CA(FOR HYPOALB) 10.2 mg/dL (8.5-10.1); CREATINE KINASE 14 Units/L (39-308); CREATINE KINASE MB < 1.0 ng/mL (0-4.0); SODIUM 148 mmol/L (136-145); TOTAL PROTEIN 6.6 g/dL (6.4-8.2); TROPONIN I < 0.02 ng/mL (0-1.5); eGFR NON BLACK RACES > 60 (>60)
[2021-07-26 22:29] LABS: CARBON DIOXIDE > 45.0 mmol/L (21-32)
--- NOTE | 2021-07-26 22:32 | RAD ---
HISTORYC/O PT BEING CONFUSED SINCE LAST NIGHT AND O2 SAT IN 50'S. UPON ARRIVAL TO ROOM PORTABLE O2 NOTED TO BE OFF, PLACED ON MONITOR O2 SAT 39%. Relevant Clinical InformationSTUDYCHEST, 1 [id number] silhouette is normal in size. Lungs are hyperinflated with flattening of the hemidiaphragms and stable coarsened interstitial markings, compatible with emphysema. Previously seen patchy left basilar opacities persist but appear overall improved since prior. No significant pleural effusion is identified. No pneumothorax.IMPRESSIONCOPD and persistent but improving left basilar airspace disease.Electronically signed by: BARBARA RAE (Jul 26, 2021 22:32:01)
[2021-07-26 23:34] LABS: BILIRUBIN,URINE NEGATIVE (NEGATIVE); BLOOD/HEMOGLOBIN,URINE NEGATIVE (NEGATIVE); GLUCOSE, URINE NEGATIVE (NEGATIVE); KETONES,URINE NEGATIVE (NEGATIVE); LEUKOCYTE ESTERASE ,URINE NEGATIVE (NEGATIVE); NITRITES,URINE NEGATIVE (NEGATIVE); PROTEIN,URINE NEGATIVE (NEGATIVE); UROBILINOGEN,URINE NORMAL (NORMAL)
[2021-07-26 23:42] LABS: APPEARANCE,URINE CLEAR (CLEAR); COLOR,URINE YELLOW (YELLOW)
--- NOTE | 2021-07-27 01:04 | CT ---
History: AMS HX: COPD< EMPHYSEMA< ASTHMAExam :BRAIN W/O CONTechnique: Thin section axial ct images of the brain were obtained from the foramen magnum to the vertex without contrast. Sagittal and coronal reconstructions were also performed.Comparison: NoneFindings:The ventricles are within normal limits in size. No midline shift, mass effect or extra-axial fluid collections. No evidence of acute hemorrhage or acute macroinfarction. Mild cortical atrophy compatible with patient's age. Decreased attenuation in the periventricular and subcortical white matter consistent with microvascular ischemic white matter changes.There is partial opacification of the ethmoid air cells bilaterally. Mucosal thickening is also seen within the right frontal and left sphenoid sinuses. The calvarium is intact.Impression:Mild cortical atrophy with microvascular ischemic white matter changes.No acute intracranial pathology.Chronic ethmoid, right frontal and left sphenoid sinusitisElectronically signed by: Hector Engel (Jul 27, 2021 01:03:22)
[2021-07-27] MEDS ORDERED: ROCEPHIN VIAL 1 GRAM 1 G in NS 100 ML IV + SPIKE MINIBAG* 100 ML IV SCH (02:19)
[2021-07-27] MEDS ORDERED: SOLU-Medrol 125 MG VIAL IVP SCH (02:20)
[2021-07-27] MEDS ORDERED: ROCEPHIN VIAL 1 GRAM ONE (02:40)
[2021-07-27] MEDS ORDERED: SOLU-Medrol 125 MG VIAL ONE (02:40)
[2021-07-27] MEDS ORDERED: NS 1,000 ML IV 1,000 ML ONE (02:41)
[2021-07-27] MEDS ORDERED: NS 100 ML IV + SPIKE MINIBAG* 100 ML IV ONE (02:41)
[2021-07-27] MEDS: NS 1,000 ML IV 1,000 ML IV SCH ×2 (02:48→16:56)
[2021-07-27] MEDS ORDERED: DUONEB 0.5 MG/3 MG (3 mL) NEB ONE (04:36)
[2021-07-27 04:56] LABS: BASOPHILS % (AUTO) 0.2 % (0.2-1.0); EOSINOPHILS # (AUTO) 0.1 x10^3/uL (0.0-0.2); EOSINOPHILS % (AUTO) 0.8 % (0.9-2.9); HEMATOCRIT 31.1 % (42.0-54.0); HEMOGLOBIN 10.3 g/dL (13.5-18.0); LYMPHOCYTES # (AUTO) 0.5 X10^3/uL (1.3-2.9); LYMPHOCYTES % (AUTO) 5.3 % (21.0-51.0); MEAN CORPUSCULAR HEMOGLOBIN 30.1 pg (27.0-34.0); MEAN CORPUSCULAR HGB CONC 33.2 g/dL (33.0-35.0); MEAN CORPUSCULAR VOLUME 90.8 fL (80.0-100.0); MEAN PLATELET VOLUME 8.1 fL (7.4-11.0); MONOCYTES # (AUTO) 0.5 x10^3/uL (0.3-0.8); MONOCYTES % (AUTO) 5.5 % (0.0-13.0); NEUTROPHILS # (AUTO) 8.4 x10^3/uL (2.2-4.8); NEUTROPHILS % (AUTO) 88.2 % (42.0-75.0); PLATELET COUNT 231 X10^3/uL (150.0-450.0); RED BLOOD COUNT 3.42 X10^6/uL (4.7-6.0); RED CELL DISTRIBUTION WIDTH 15.6 % (11.6-16.5); WHITE BLOOD COUNT 9.6 X10^3/uL (3.6-10.0)
[2021-07-27 05:10] LABS: ALANINE AMINOTRANSFERASE 14 Units/L (12-78); ALBUMIN 2.6 g/dL (3.4-5.0); ALKALINE PHOSPHATASE 79 Units/L (46-116); ASPARTATE AMINO TRANSFERASE 17 Units/L (15-37); BLOOD UREA NITROGEN 10 mg/dL (7-18); CALCIUM 9.1 mg/dL (8.5-10.1); CHLORIDE 101 mmol/L (98-107); COR CA(FOR HYPOALB) 10.2 mg/dL (8.5-10.1); COR NA(FOR HYPERGLY) 150 mmol/L (136-145); SODIUM 149 mmol/L (136-145); eGFR NON BLACK RACES > 60 (>60)
[2021-07-27] MEDS: DUONEB 0.5 MG/3 MG (3 mL) NEB SCH ×5 (05:10→21:50)
[2021-07-27 05:18] LABS: CARBON DIOXIDE > 45.0 mmol/L (21-32)
[2021-07-27] MEDS ORDERED: MICRO K EXTEN CAP 10 MEQ PO PRN (05:40)
[2021-07-27] MEDS ORDERED: POTASSIUM CHL 40 MEQ/NS 0.45% 500 ML IV PRN (05:40)
[2021-07-27] MEDS ORDERED: K-RIDER 10 MEQ/NS 100 ML 10 MEQ/100 ML BAG IV PRN (05:40)
[2021-07-27] MEDS ORDERED: POTASSIUM CHLORIDE LIQ 20 MEQ UDC PO PRN (05:40)
[2021-07-27] MEDS ORDERED: KLOR-CON PO PRN (05:40)
[2021-07-27] MEDS ORDERED: POTASSIUM CHL 60 MEQ/NS 0.45% 500 ML IV PRN (05:40)
[2021-07-27] MEDS: K-DUR TAB 20 MEQ PO PRN (08:20)
[2021-07-27] MEDS: PULMICORT NEB TX 0.5 MG NEB SCH ×2 (09:00→20:50)
[2021-07-27] MEDS: LOVENOX INJ 40 MG SYR SC SCH (10:28)
[2021-07-27] MEDS: NovoLIN R (or HumuLIN R) SUBCUT PRN (17:40)
--- NOTE | 2021-07-27 18:20 | DR.H&P ---
H&P - History & Physical for Day of: H&P Date: 07/26/21 - Chief Complaint Chief Complaint: Confusion and hypoxia - History of Present Illness History of Present Illness: Patient is a 76 year old white male who was admitted due to hypoxia and confusion. Patient continues to be mildly confused; spouse and child at bedside. History obtained from family. Spouse reports patient was confused last night and acting strange so she brought him to ER. Patient's arrival oxygen saturation was as low as 30. Patient was given supplemental oxygen which improved. Patient has acute on chronic resp failure. Family reports patient recently had an outpatient sleep study which revealed ARTIS. Patient would benefit from a trilogy machine due to oxygen demands and chronic resp failure due to COPD. PMH COPD, BPH, cardiac arrythmia. No other concerns at present. - Past Medical History Past Medical History: Arthritis, COPD, GERD, Sleep Apnea Additional Medical History: BPH - Past Surgical History Surgical History: No History - Family History Family Medical History: Cancer - Social History Does patient currently use any type of tobacco product: No Have you used tobacco products in the last 12 months: No Type of Tobacco Use: None Does any household member use tobacco: No Alcohol Use: None Drug Use: None - Medications Home Medications: No Known Drug Allergies Allergy (Verified 06/03/21 17:48) CONTINUE taking the following medications montelukast 10 mg PO DAILY 07/26/21 [History] - Review of Systems Constitutional: See HPI Eyes: See HPI ENT: See HPI Respiratory: See HPI Cardiovascular: See HPI Gastrointestinal: See HPI Genitourinary: See HPI Musculoskeletal: See HPI Skin: See HPI Neurological: See HPI - Physical Exam Vital Signs: Temperature 99 F Pulse Rate [Left Brachial] 96 Pulse Rate 78 Respiratory Rate 24 Blood Pressure [Right Arm] 127/68 Blood Pressure [Left Arm] 115/66 Blood Pressure 139/65 O2 Sat by Pulse Oximetry 91 Oriented: Not Oriented (Alert, confused) Eyes: Normal Ear: Normal Nose: Normal Throat: Normal Respiratory: Diminished Throughout, Rhonchi Throughout Cardiovascular: Normal : Normal Auscultation: Bowel Sounds: Normal Palpation: Normal Tenderness: Normal Skin: Bruising Musculoskeletal: Instability (Generalized weakness) Mood Description: Calm, Flat Affect: Flat Speech Pattern: Clear, Inappropriate - Assessment/Plan (1) Acute hypercapnic respiratory failure Status: Acute Plan: Repeat labs in am. Repeat ABG and CXR in am. See EMR for further orders. Blood cultures x 2. Zithromax IV. Rocephin IV. Solumedrol IV. Resume home meds. SS to arrange trilogy (2) Carbon dioxide narcosis Status: Acute (3) Acute confusion Status: Acute (4) Acute exacerbation of chronic obstructive pulmonary disease Status: Acute (5) Acute respiratory failure with hypoxia and hypercarbia Status: Acute (6) Chronic low back pain Qualifiers: Sciatica presence: without sciatica Status: Chronic - Allergies Allergies/Adverse Reactions: Allergies Allergy/AdvReac Type Severity Reaction Status Date / Time No Known Drug Allergies Allergy Verified 06/03/21 17:48
[2021-07-27] MEDS ORDERED: PERCOCET TAB 5/325 MG PO PRN (18:21)
--- NOTE | 2021-07-27 18:36 | PCM.PROG ---
Progress Note - Subjective Subjective: Patient is a 76 year old white male who was admitted as per HPI in H and P. Patient is mildly confused. Family at bedside. Patient is pending a trilogy to be arranged. No other concerns at present. Plan for discharge when trilogy arranged. - Past Medical Family Social History Past Med/Fam/Surg Hx: No changes since H&P Allergies: Allergies No Known Drug Allergies Allergy (Verified 06/03/21 17:48) - Review of Systems ROS: No change since H&P - Vital Signs and I&O's Vital Signs: Temperature 99 F Pulse Rate [Left Brachial] 96 Pulse Rate 78 Respiratory Rate 24 Blood Pressure [Right Arm] 127/68 Blood Pressure [Left Arm] 115/66 Blood Pressure 139/65 O2 Sat by Pulse Oximetry 91 Intake and Output: Intake & Output 07/24/21 07/25/21 07/26/21 07/27/21 23:59 23:59 23:59 23:59 Intake Total 1439 / 1439 Balance 1439 / 1439 - Physical Exam Oriented: Not Oriented (Alert, confused) Eyes: Normal Ear: Normal Nose: Normal Throat: Normal Respiratory: Diminished, Rhonchi Cardiovascular: Normal, Edema (+2 bilateral lower ext edema) : Normal Auscultation: Bowel Sounds: Normal Palpation: Normal Tenderness: Normal Skin: Bruising Musculoskeletal: Instability (Generalized weakness) Mood Description: Calm, Flat Affect: Flat Speech Pattern: Clear, Inappropriate - Laboratory and Diagnostics Result Diagrams: 07/27/21 04:13 07/27/21 11:35 Labs: Laboratory WBC 9.6 X10^3/uL (3.6-10.0) 07/27/21 04:13 RBC 3.42 X10^6/uL (4.7-6.0) L 07/27/21 04:13 Hgb 10.3 g/dL (13.5-18.0) L 07/27/21 04:13 Hct 31.1 % (42.0-54.0) L 07/27/21 04:13 MCV 90.8 fL (80.0-100.0) 07/27/21 04:13 MCH 30.1 pg (27.0-34.0) 07/27/21 04:13 MCHC 33.2 g/dL (33.0-35.0) 07/27/21 04:13 RDW 15.6 % (11.6-16.5) 07/27/21 04:13 Plt Count 231 X10^3/uL (150.0-450.0) 07/27/21 04:13 MPV 8.1 fL (7.4-11.0) 07/27/21 04:13 Neut % (Auto) 88.2 % (42.0-75.0) H 07/27/21 04:13 Lymph % (Auto) 5.3 % (21.0-51.0) L 07/27/21 04:13 [place] % (Auto) 5.5 % (0.0-13.0) 07/27/21 04:13 Eos % (Auto) 0.8 % (0.9-2.9) L 07/27/21 04:13 Baso % (Auto) 0.2 % (0.2-1.0) 07/27/21 04:13 Neut # (Auto) 8.4 x10^3/uL (2.2-4.8) H 07/27/21 04:13 Lymph # (Auto) 0.5 X10^3/uL (1.3-2.9) L 07/27/21 04:13 [place] # (Auto) 0.5 x10^3/uL (0.3-0.8) 07/27/21 04:13 Eos # (Auto) 0.1 x10^3/uL (0.0-0.2) 07/27/21 04:13 Baso # (Auto) 0.0 X10^3/uL (0.0-0.1) 07/27/21 04:13 Absolute Nucleated RBC 0.0 /100WBC 07/27/21 04:13 Sample Site Rrad 07/26/21 21:45 ABG pH 7.440 (7.35-7.45) 07/26/21 21:45 ABG pCO2 86.0 mmHg (35.0-45.0) H* 07/26/21 21:45 ABG pO2 70.0 mmHg (80.0-100.0) L 07/26/21 21:45 ABG HCO3 58.4 mmol/L (22-26) H* 07/26/21 21:45 ABG O2 Saturation 94.0 % (90-100) 07/26/21 21:45 ABG Base Excess 28.6 mmol/L (-2.0-2.0) H 07/26/21 21:45 Jani Test Pos 07/26/21 21:45 A-a Gradient 79.0 mmHg 07/26/21 21:45 FiO2 36.0 07/26/21 21:45 Blood Gas Comments Alejandra well ms 07/26/21 21:45 Sodium 149 mmol/L (136-145) H 07/27/21 04:13 Corrected Sodium 150 mmol/L (136-145) H 07/27/21 04:13 Potassium 3.8 mmol/L (3.5-5.1) 07/27/21 11:35 Chloride 101 mmol/L (98-107) 07/27/21 04:13 Carbon Dioxide > 45.0 mmol/L (21-32) H* 07/27/21 04:13 BUN 10 mg/dL (7-18) 07/27/21 04:13 Creatinine 0.50 mg/dL (0.70-1.30) L 07/27/21 04:13 Est GFR (MDRD) Af Amer > 60 (>60) 07/27/21 04:13 Est GFR (MDRD) Non-Af > 60 (>60) 07/27/21 04:13 Glucose 129 mg/dL (65-99) H 07/27/21 04:13 POC Glucose (mg/dL) 265 mg/dL (65-99) H 07/27/21 17:04 Calcium 9.1 mg/dL (8.5-10.1) 07/27/21 04:13 Corrected Calcium 10.2 mg/dL (8.5-10.1) H 07/27/21 04:13 Magnesium 2.2 mg/dL (1.7-2.9) 07/27/21 04:06 Total Bilirubin 0.20 mg/dL (0.2-1.0) 07/27/21 04:13 AST 17 Units/L (15-37) 07/27/21 04:13 ALT 14 Units/L (12-78) 07/27/21 04:13 Alkaline Phosphatase 79 Units/L (46-116) 07/27/21 04:13 Creatine Kinase 14 Units/L (39-308) L 07/26/21 21:54 CK-MB (CK-2) < 1.0 ng/mL (0-4.0) 07/26/21 21:54 CK/CKMB % Calc 7.1 % (<4) 07/26/21 21:54 Troponin I < 0.02 ng/mL (0-1.5) 07/26/21 21:54 Total Protein 6.0 g/dL (6.4-8.2) L 07/27/21 04:13 Albumin 2.6 g/dL (3.4-5.0) L 07/27/21 04:13 Globulin 3.4 g/dL (2.5-4.5) 07/27/21 04:13 Albumin/Globulin Ratio 0.8 Ratio (1.1-2.1) L 07/27/21 04:13 Specimen Type Clean catch urine 07/26/21 23:21 Urine Color Yellow (YELLOW) 07/26/21 23:21 Urine Appearance Clear (CLEAR) 07/26/21 23:21 Urine pH 6.0 (5.0 - 8.0) 07/26/21 23:21 Ur Specific [place] 1.020 (1.000-1.030) 07/26/21 23:21 Urine Protein Negative (NEGATIVE) 07/26/21 23:21 Urine Glucose (UA) Negative (NEGATIVE) 07/26/21 23:21 Urine Ketones Negative (NEGATIVE) 07/26/21 23:21 Urine Occult Blood Negative (NEGATIVE) 07/26/21 23:21 Urine Nitrite Negative (NEGATIVE) 07/26/21 23:21 Urine Bilirubin Negative (NEGATIVE) 07/26/21 23:21 Urine Urobilinogen Normal (NORMAL) 07/26/21 23:21 Ur Leukocyte Esterase Negative (NEGATIVE) 07/26/21 23:21 SARS-CoV-2 (PCR) Negative (NEGATIVE) 07/27/21 00:35 Influenza Type A (PCR) Negative (NEGATIVE) 07/27/21 00:35 Influenza Type B (PCR) Negative (NEGATIVE) 07/27/21 00:35 RSV (PCR) Negative (NEGATIVE) 07/27/21 00:35 - Plan (1) Acute hypercapnic respiratory failure Status: Acute Plan: Repeat labs in am. Repeat ABG and CXR in am. See EMR for further orders. Blood cultures x 2. Zithromax IV. Rocephin IV. Solumedrol IV. Resume home meds. 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
[2021-07-27] MEDS: THEO-24 CAP 200 MG (24-HR) PO SCH (18:39)
[2021-07-27] MEDS: LASIX PO SCH (18:39)
[2021-07-27] MEDS: ZITHROMAX INJ 500 MG VIAL 500 MG in NS 250 ML IV 250 ML IV SCH (19:36)
[2021-07-27] MEDS ORDERED: PULMICORT NEB TX 0.5 MG NEB SCH (21:00)
[2021-07-27] MEDS: SNACK - Diabetic Appropriate PO SCH (21:09)
[2021-07-27] MEDS: FLOMAX PO SCH (21:09)
[2021-07-27] MEDS: PEPCID TAB 40 MG PO SCH (21:10)
[2021-07-27] MEDS: SOLU-Medrol 125 MG VIAL IVP SCH (21:51)
[2021-07-27] MEDS ORDERED: SALINE 0.9% 3 ML NEB TX IN SCH (22:00)
[2021-07-28] MEDS: DUONEB 0.5 MG/3 MG (3 mL) NEB SCH ×2 (05:07→14:07)
[2021-07-28 05:10] LABS: ABG HCO3 50.9 mmol/L (22-26)
[2021-07-28] MEDS: NS 1,000 ML IV 1,000 ML IV SCH ×2 (05:19→20:57)
[2021-07-28] MEDS: SOLU-Medrol 125 MG VIAL IVP SCH ×3 (05:19→22:00)
--- NOTE | 2021-07-28 06:08 | RAD ---
HISTORYCOPD HX: COPD< EMPHYSEMA< ASTHMASTUDYCHEST, 1 [id number]/2021FINDINGSThe trachea is midline. The cardiac silhouette is unremarkable. Chronic interstitial lung changes with flattening of the diaphragm consistent with COPD is observedThe lungs are clear without focal infiltrate or effusion. The bony thorax is unremarkable.IMPRESSIONCOPD.No active cardiopulmonary disease.Electronically signed by: Hector Engel (Jul 28, 2021 06:06:36)
[2021-07-28 06:24] LABS: BASOPHILS % (AUTO) 0 % (0.2-1.0); HEMATOCRIT 28.4 % (42.0-54.0); HEMOGLOBIN 9.4 g/dL (13.5-18.0); LYMPHOCYTES # (AUTO) 0.3 X10^3/uL (1.3-2.9); MEAN CORPUSCULAR HGB CONC 33.3 g/dL (33.0-35.0); MEAN CORPUSCULAR VOLUME 90.2 fL (80.0-100.0); MEAN PLATELET VOLUME 8.1 fL (7.4-11.0); MONOCYTES # (AUTO) 0.1 x10^3/uL (0.3-0.8); NEUTROPHILS # (AUTO) 7.6 x10^3/uL (2.2-4.8); PLATELET COUNT 223 X10^3/uL (150.0-450.0); RED BLOOD COUNT 3.14 X10^6/uL (4.7-6.0)
[2021-07-28 06:59] LABS: ALANINE AMINOTRANSFERASE 14 Units/L (12-78); ALBUMIN 2.5 g/dL (3.4-5.0); ALKALINE PHOSPHATASE 67 Units/L (46-116); ASPARTATE AMINO TRANSFERASE 16 Units/L (15-37); BLOOD UREA NITROGEN 12 mg/dL (7-18); CALCIUM 8.6 mg/dL (8.5-10.1); CHLORIDE 101 mmol/L (98-107); COR CA(FOR HYPOALB) 9.8 mg/dL (8.5-10.1); COR NA(FOR HYPERGLY) 149 mmol/L (136-145); CREATININE 0.52 mg/dL (0.70-1.30); SODIUM 148 mmol/L (136-145); TOTAL PROTEIN 5.6 g/dL (6.4-8.2); eGFR NON BLACK RACES > 60 (>60)
[2021-07-28 07:46] LABS: BAND NEUTROPHILS % 6 % (0-10); PLATELET MORPHOLOGY COMMENT NORMAL (NORMAL)
[2021-07-28] MEDS: ROCEPHIN VIAL 1 GRAM 1 G in NS 100 ML IV + SPIKE MINIBAG* 100 ML IV SCH (08:30)
[2021-07-28] MEDS: ZITHROMAX INJ 500 MG VIAL 500 MG in NS 250 ML IV 250 ML IV SCH (08:31)
[2021-07-28] MEDS: K-DUR TAB 20 MEQ PO PRN (08:32)
[2021-07-28] MEDS: PULMICORT NEB TX 0.5 MG NEB SCH ×2 (08:34→21:04)
[2021-07-28] MEDS: CARDIZEM CD 120 MG 24-HR PO SCH (08:57)
[2021-07-28] MEDS: LASIX PO SCH (08:57)
[2021-07-28] MEDS: PEPCID TAB 40 MG PO SCH ×2 (08:58→20:01)
[2021-07-28] MEDS: SINGULAIR TAB 10 MG PO SCH (08:58)
[2021-07-28] MEDS: PROSCAR PO SCH (08:59)
[2021-07-28] MEDS: LOVENOX INJ 40 MG SYR SC SCH (08:59)
[2021-07-28] MEDS: THEO-24 CAP 200 MG (24-HR) PO SCH (09:00)
[2021-07-28] MEDS ORDERED: SOLU-Medrol 125 MG VIAL IVP SCH (09:00)
[2021-07-28] MEDS ORDERED: LOPRESSOR TAB 25 MG ONE (19:50)
[2021-07-28] MEDS: LOPRESSOR TAB 25 MG PO SCH (20:00)
[2021-07-28] MEDS: FLOMAX PO SCH (20:01)
[2021-07-28] MEDS: SNACK - Diabetic Appropriate PO SCH (20:01)
[2021-07-29] MEDS: XOPENEX 1.25 MG/3 ML NEBULE NEB SCH ×4 (00:17→18:08)
[2021-07-29] MEDS: SOLU-Medrol 125 MG VIAL IVP SCH (05:00)
[2021-07-29 06:17] LABS: BASOPHILS % (AUTO) 0 % (0.2-1.0); HEMATOCRIT 30.5 % (42.0-54.0); HEMOGLOBIN 10.1 g/dL (13.5-18.0); LYMPHOCYTES # (AUTO) 0.3 X10^3/uL (1.3-2.9); LYMPHOCYTES % (AUTO) 2.3 % (21.0-51.0); MEAN CORPUSCULAR HGB CONC 33.2 g/dL (33.0-35.0); MEAN CORPUSCULAR VOLUME 90.2 fL (80.0-100.0); MEAN PLATELET VOLUME 8.2 fL (7.4-11.0); MONOCYTES # (AUTO) 0.2 x10^3/uL (0.3-0.8); MONOCYTES % (AUTO) 1.8 % (0.0-13.0); NEUTROPHILS # (AUTO) 11.4 x10^3/uL (2.2-4.8); NEUTROPHILS % (AUTO) 95.9 % (42.0-75.0); PLATELET COUNT 220 X10^3/uL (150.0-450.0); RED BLOOD COUNT 3.39 X10^6/uL (4.7-6.0); RED CELL DISTRIBUTION WIDTH 16.1 % (11.6-16.5); WHITE BLOOD COUNT 11.9 X10^3/uL (3.6-10.0)
[2021-07-29 06:32] LABS: ALANINE AMINOTRANSFERASE 19 Units/L (12-78); ALBUMIN 2.7 g/dL (3.4-5.0); ALKALINE PHOSPHATASE 69 Units/L (46-116); ASPARTATE AMINO TRANSFERASE 19 Units/L (15-37); BLOOD UREA NITROGEN 18 mg/dL (7-18); CALCIUM 9.1 mg/dL (8.5-10.1); CARBON DIOXIDE 38.7 mmol/L (21-32); CHLORIDE 104 mmol/L (98-107); COR CA(FOR HYPOALB) 10.1 mg/dL (8.5-10.1); CREATININE 0.51 mg/dL (0.70-1.30); SODIUM 148 mmol/L (136-145); eGFR NON BLACK RACES > 60 (>60)
[2021-07-29 06:57] LABS: PLATELET MORPHOLOGY COMMENT NORMAL (NORMAL)
[2021-07-29] MEDS ORDERED: FLUZONE II4 or AFLURIA II4 IM ONE (09:00)
[2021-07-29] MEDS: CARDIZEM CD 120 MG 24-HR PO SCH (09:08)
[2021-07-29] MEDS: NS 1,000 ML IV 1,000 ML IV SCH ×2 (09:08→20:07)
[2021-07-29] MEDS: LASIX PO SCH (09:09)
[2021-07-29] MEDS: LOVENOX INJ 40 MG SYR SC SCH (09:09)
[2021-07-29] MEDS: LOPRESSOR TAB 25 MG PO SCH ×2 (09:09→20:10)
[2021-07-29] MEDS: PEPCID TAB 40 MG PO SCH ×2 (09:10→20:10)
[2021-07-29] MEDS: PROSCAR PO SCH (09:10)
[2021-07-29] MEDS: SINGULAIR TAB 10 MG PO SCH (09:12)
[2021-07-29] MEDS: ROCEPHIN VIAL 1 GRAM 1 G in NS 100 ML IV + SPIKE MINIBAG* 100 ML IV SCH (09:12)
[2021-07-29] MEDS: ZITHROMAX INJ 500 MG VIAL 500 MG in NS 250 ML IV 250 ML IV SCH (09:13)
[2021-07-29] MEDS: PULMICORT NEB TX 0.5 MG NEB SCH ×2 (09:36→20:35)
[2021-07-29] MEDS: THEO-24 CAP 200 MG (24-HR) PO SCH (10:34)
--- NOTE | 2021-07-29 16:27 | PCM.PROG ---
Progress Note - Progress Note for Day of Date of Exam: 07/28/21 - Subjective Subjective: Patient is a 76 year old white male who was admitted as per HPI. Family reports patient has been more angry and agitated. Family at bedside. Patient is pending a trilogy to be arranged. No other concerns at present. Plan for discharge when trilogy arranged. Patient appears to be improved. Patient was seen by Dr. Valle on this date. - Past Medical Family Social History Past Med/Fam/Surg Hx: No changes since H&P Allergies: Allergies No Known Drug Allergies Allergy (Verified 06/03/21 17:48) - Review of Systems ROS: No change since H&P - Vital Signs and I&O's Vital Signs: Temperature 97.7 F Pulse Rate [Left Brachial] 80 Pulse Rate 90 Respiratory Rate 28 Blood Pressure [Right Arm] 130/60 Blood Pressure [Left Arm] 115/66 Blood Pressure 139/65 O2 Sat by Pulse Oximetry 92 Intake and Output: Intake & Output 07/26/21 07/27/21 07/28/21 07/29/21 23:59 23:59 23:59 23:59 Intake Total 2067 / 1921 1046 / 1046 Output Total 900 / 900 100 / 100 Balance 2067 1022 / 1022 946 / 946 - Physical Exam Oriented: Not Oriented (Alert, confused) Eyes: Normal Ear: Normal Nose: Normal Throat: Normal Respiratory: Diminished, Rhonchi Cardiovascular: Normal, Edema (Edema resolved) : Normal Auscultation: Bowel Sounds: Normal Palpation: Normal Tenderness: Normal Skin: Bruising Musculoskeletal: Instability (Generalized weakness) Psychiatric: Normal Mood Description: Calm, Flat Affect: Flat Speech Pattern: Clear, Appropriate - Laboratory and Diagnostics Result Diagrams: 07/29/21 05:40 07/29/21 05:40 Labs: 07/27/21 18:47 Blood Blood Culture - Preliminary 07/27/21 18:35 Blood Blood Culture - Preliminary Laboratory WBC 11.9 X10^3/uL (3.6-10.0) H 07/29/21 05:40 RBC 3.39 X10^6/uL (4.7-6.0) L 07/29/21 05:40 Hgb 10.1 g/dL (13.5-18.0) L 07/29/21 05:40 Hct 30.5 % (42.0-54.0) L 07/29/21 05:40 MCV 90.2 fL (80.0-100.0) 07/29/21 05:40 MCH 30.0 pg (27.0-34.0) 07/29/21 05:40 MCHC 33.2 g/dL (33.0-35.0) 07/29/21 05:40 RDW 16.1 % (11.6-16.5) 07/29/21 05:40 Plt Count 220 X10^3/uL (150.0-450.0) 07/29/21 05:40 Plt Count Comment Adequate (ADEQUATE) 07/29/21 05:40 MPV 8.2 fL (7.4-11.0) 07/29/21 05:40 Neut % (Auto) 95.9 % (42.0-75.0) H 07/29/21 05:40 Lymph % (Auto) 2.3 % (21.0-51.0) L 07/29/21 05:40 [place] % (Auto) 1.8 % (0.0-13.0) 07/29/21 05:40 Eos % (Auto) 0.0 % (0.9-2.9) L 07/29/21 05:40 Baso % (Auto) 0 % (0.2-1.0) L 07/29/21 05:40 Neut # (Auto) 11.4 x10^3/uL (2.2-4.8) H 07/29/21 05:40 Lymph # (Auto) 0.3 X10^3/uL (1.3-2.9) L 07/29/21 05:40 [place] # (Auto) 0.2 x10^3/uL (0.3-0.8) L 07/29/21 05:40 Eos # (Auto) 0.0 x10^3/uL (0.0-0.2) 07/29/21 05:40 Baso # (Auto) 0.0 X10^3/uL (0.0-0.1) 07/29/21 05:40 Absolute Nucleated RBC 0.0 /100WBC 07/29/21 05:40 Total Counted 100 07/29/21 05:40 Neutrophils % (Manual) 96 % (39-76) H 07/29/21 05:40 Band Neutrophils % 6 % (0-10) 07/28/21 05:51 Lymphocytes % (Manual) 2 % (13-43) L 07/29/21 05:40 Monocytes % (Manual) 2 % (4-9) L 07/29/21 05:40 Plt Morphology Comment Normal (NORMAL) 07/29/21 05:40 RBC Morphology Normal (NORMAL) 07/29/21 05:40 Sample Site Lb 07/28/21 05:04 ABG pH 7.470 (7.35-7.45) H 07/28/21 05:04 ABG pCO2 70.0 mmHg (35.0-45.0) H* 07/28/21 05:04 ABG pO2 65.0 mmHg (80.0-100.0) L 07/28/21 05:04 ABG HCO3 50.9 mmol/L (22-26) H* 07/28/21 05:04 ABG O2 Saturation 94.0 % (90-100) 07/28/21 05:04 ABG Base Excess 23.0 mmol/L (-2.0-2.0) H 07/28/21 05:04 Jani Test N/a 07/28/21 05:04 A-a Gradient Not Reportable 07/28/21 05:04 FiO2 28 07/28/21 05:04 Blood Gas Comments Alejandra well ae 07/28/21 05:04 Sodium 148 mmol/L (136-145) H 07/29/21 05:40 Corrected Sodium TNP 07/29/21 05:40 Potassium 3.9 mmol/L (3.5-5.1) 07/29/21 05:40 Chloride 104 mmol/L (98-107) 07/29/21 05:40 Carbon Dioxide 38.7 mmol/L (21-32) H 07/29/21 05:40 BUN 18 mg/dL (7-18) 07/29/21 05:40 Creatinine 0.51 mg/dL (0.70-1.30) L 07/29/21 05:40 Est GFR (MDRD) Af Amer > 60 (>60) 07/29/21 05:40 Est GFR (MDRD) Non-Af > 60 (>60) 07/29/21 05:40 Glucose 103 mg/dL (65-99) H 07/29/21 05:40 POC Glucose (mg/dL) 128 mg/dL (65-99) H 07/29/21 11:16 Calcium 9.1 mg/dL (8.5-10.1) 07/29/21 05:40 Corrected Calcium 10.1 mg/dL (8.5-10.1) 07/29/21 05:40 Magnesium 2.0 mg/dL (1.7-2.9) 07/28/21 05:51 Total Bilirubin 0.20 mg/dL (0.2-1.0) 07/29/21 05:40 AST 19 Units/L (15-37) 07/29/21 05:40 ALT 19 Units/L (12-78) 07/29/21 05:40 Alkaline Phosphatase 69 Units/L (46-116) 07/29/21 05:40 Creatine Kinase 14 Units/L (39-308) L 07/26/21 21:54 CK-MB (CK-2) < 1.0 ng/mL (0-4.0) 07/26/21 21:54 CK/CKMB % Calc 7.1 % (<4) 07/26/21 21:54 Troponin I < 0.02 ng/mL (0-1.5) 07/26/21 21:54 Total Protein 6.0 g/dL (6.4-8.2) L 07/29/21 05:40 Albumin 2.7 g/dL (3.4-5.0) L 07/29/21 05:40 Globulin 3.3 g/dL (2.5-4.5) 07/29/21 05:40 Albumin/Globulin Ratio 0.8 Ratio (1.1-2.1) L 07/29/21 05:40 Specimen Type Clean catch urine 07/26/21 23:21 Urine Color Yellow (YELLOW) 07/26/21 23:21 Urine Appearance Clear (CLEAR) 07/26/21 23:21 Urine pH 6.0 (5.0 - 8.0) 07/26/21 23:21 Ur Specific [place] 1.020 (1.000-1.030) 07/26/21 23:21 Urine Protein Negative (NEGATIVE) 07/26/21 23:21 Urine Glucose (UA) Negative (NEGATIVE) 07/26/21 23:21 Urine Ketones Negative (NEGATIVE) 07/26/21 23:21 Urine Occult Blood Negative (NEGATIVE) 07/26/21 23:21 Urine Nitrite Negative (NEGATIVE) 07/26/21 23:21 Urine Bilirubin Negative (NEGATIVE) 07/26/21 23:21 Urine Urobilinogen Normal (NORMAL) 07/26/21 23:21 Ur Leukocyte Esterase Negative (NEGATIVE) 07/26/21 23:21 SARS-CoV-2 (PCR) Negative (NEGATIVE) 07/27/21 00:35 Influenza Type A (PCR) Negative (NEGATIVE) 07/27/21 00:35 Influenza Type B (PCR) Negative (NEGATIVE) 07/27/21 00:35 RSV (PCR) Negative (NEGATIVE) 07/27/21 00:35 - Plan (1) Acute hypercapnic respiratory failure Status: Acute Plan: Repeat labs in am. Repeat ABG and CXR in am. See EMR for further orders. Blood cultures x 2. Zithromax IV. Rocephin IV. Solumedrol IV. Resume home meds. 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
[2021-07-29] MEDS: SOLU-Medrol 40 MG VIAL IVP SCH (20:08)
[2021-07-29] MEDS: RisperDAL TAB 1 MG PO SCH (20:10)
[2021-07-29] MEDS: FLOMAX PO SCH (20:10)
[2021-07-29] MEDS: SNACK - Diabetic Appropriate PO SCH (20:26)
[2021-07-30] MEDS: XOPENEX 1.25 MG/3 ML NEBULE NEB SCH ×4 (01:02→18:53)
[2021-07-30] MEDS ORDERED: MORPHINE SULFATE INJ 2 MG INJ IVP ONE (01:04)
[2021-07-30] MEDS ORDERED: MORPHINE SULFATE INJ 2 MG INJ ONE (01:06)
[2021-07-30 02:16] LABS: CKMB % 4.4 % (<4); CREATINE KINASE 23 Units/L (39-308); CREATINE KINASE MB < 1.0 ng/mL (0-4.0); TROPONIN I 0.02 ng/mL (0-1.5)
[2021-07-30 05:36] LABS: ABG BASE EXCESS 24.9 mmol/L (-2.0-2.0)
[2021-07-30 05:37] LABS: ABG ALLEN TEST POS; ABG HCO3 53.1 mmol/L (22-26)
--- NOTE | 2021-07-30 06:12 | RAD ---
HISTORYHYPOXIA HX: COPD< EMPHYSEMA< ASTHMASTUDYCHEST, 1 [id number] trachea is midline. The cardiac silhouette is unremarkable.Chronic interstitial lung changes with flattening of the diaphragm consistent with COPD is observed. The lungs are clear without focal infiltrate or effusion. The bony thorax is unremarkable.IMPRESSIONCOPD.No active cardiopulmonary disease.Electronically signed by: Hector Engel (Jul 30, 2021 06:10:49)
[2021-07-30 06:24] LABS: BASOPHILS % (AUTO) 0.1 % (0.2-1.0); HEMATOCRIT 30.8 % (42.0-54.0); HEMOGLOBIN 10.3 g/dL (13.5-18.0); LYMPHOCYTES # (AUTO) 0.2 X10^3/uL (1.3-2.9); LYMPHOCYTES % (AUTO) 2.3 % (21.0-51.0); MEAN CORPUSCULAR HEMOGLOBIN 30.2 pg (27.0-34.0); MEAN CORPUSCULAR HGB CONC 33.5 g/dL (33.0-35.0); MEAN PLATELET VOLUME 8.1 fL (7.4-11.0); MONOCYTES # (AUTO) 0.1 x10^3/uL (0.3-0.8); MONOCYTES % (AUTO) 1.5 % (0.0-13.0); NEUTROPHILS % (AUTO) 96.1 % (42.0-75.0); PLATELET COUNT 226 X10^3/uL (150.0-450.0); RED BLOOD COUNT 3.43 X10^6/uL (4.7-6.0); RED CELL DISTRIBUTION WIDTH 16.3 % (11.6-16.5); WHITE BLOOD COUNT 8.3 X10^3/uL (3.6-10.0)
[2021-07-30 06:40] LABS: ALANINE AMINOTRANSFERASE 19 Units/L (12-78); ALBUMIN 2.8 g/dL (3.4-5.0); ALKALINE PHOSPHATASE 66 Units/L (46-116); ASPARTATE AMINO TRANSFERASE 23 Units/L (15-37); BLOOD UREA NITROGEN 15 mg/dL (7-18); CALCIUM 8.9 mg/dL (8.5-10.1); CHLORIDE 102 mmol/L (98-107); COR CA(FOR HYPOALB) 9.9 mg/dL (8.5-10.1); CREATININE 0.42 mg/dL (0.70-1.30); SODIUM 147 mmol/L (136-145); TOTAL PROTEIN 5.9 g/dL (6.4-8.2); eGFR NON BLACK RACES > 60 (>60)
[2021-07-30 06:46] LABS: CARBON DIOXIDE 40.4 mmol/L (21-32)
[2021-07-30 07:18] LABS: BAND NEUTROPHILS % 2 % (0-10)
[2021-07-30 07:19] LABS: PLATELET MORPHOLOGY COMMENT NORMAL (NORMAL)
[2021-07-30] MEDS: LASIX PO SCH (08:28)
[2021-07-30] MEDS: CARDIZEM CD 120 MG 24-HR PO SCH (08:28)
[2021-07-30] MEDS: LOPRESSOR TAB 25 MG PO SCH (08:28)
[2021-07-30] MEDS: LOVENOX INJ 40 MG SYR SC SCH (08:29)
[2021-07-30] MEDS: PEPCID TAB 40 MG PO SCH (08:29)
[2021-07-30] MEDS: SINGULAIR TAB 10 MG PO SCH (08:30)
[2021-07-30] MEDS: PROSCAR PO SCH (08:30)
[2021-07-30] MEDS: ROCEPHIN VIAL 1 GRAM 1 G in NS 100 ML IV + SPIKE MINIBAG* 100 ML IV SCH (08:30)
[2021-07-30] MEDS: ZITHROMAX INJ 500 MG VIAL 500 MG in NS 250 ML IV 250 ML IV SCH (08:31)
[2021-07-30] MEDS: SOLU-Medrol 40 MG VIAL IVP SCH ×2 (08:37→20:45)
[2021-07-30] MEDS: THEO-24 CAP 200 MG (24-HR) PO SCH (08:38)
[2021-07-30] MEDS: PULMICORT NEB TX 0.5 MG NEB SCH ×2 (09:00→21:28)
[2021-07-30] MEDS: NS 1,000 ML IV 1,000 ML IV SCH (11:49)
--- NOTE | 2021-07-30 15:09 | RAD ---
EXAM: CHEST X-RAYHISTORY: Choked on lunch. Shortness of breath.TECHNIQUE: AP CXR dated July 30, 2021 at 3:52 PM.COMPARISON: CXR dated July 30, 2021 at 5:34 AM and CXR dated July 28, 2021.FINDINGS:There is severe aortic atherosclerosis. The heart size and mediastinum are within normal limits. There is lung parenchymal hyperinflation and hyperlucency in keeping with COPD/emphysema. There is no acute parenchymal infiltrate, pleural effusion, or pneumothorax seen. The visualized bony structures are within normal limits.IMPRESSION:1. No evidence for acute cardiopulmonary disease seen.2. COPD/emphysema.3. No significant interval change seen.Electronically signed by: Douglas Mckinnon (Jul 30, 2021 15:07:39)
[2021-07-30] MEDS ORDERED: MORPHINE SULFATE INJ 2 MG INJ IVP PRN (16:54)
--- NOTE | 2021-07-30 22:41 | PCM.PROG ---
Progress Note - Subjective Subjective: Patient is a 76 year old white male who was admitted as per HPI. Spouse at bedside. Trilogy is expected to be delivered today. Patient appears to be improved. Patient has chronic resp failure and chronic COPD. Patient is at his baseline. Patient removes oxygen and BIPAP/trilogy mask frequently. Spouse states patient continues to be confused; this is likely related to hospital psy chosis and chronic resp failure; CT head negative. Plan was to dc patient home today however patient had an episode of hypoxia today when he removed mask and oxygen. Staff reports oxygen dropped as low as 68% and patient was confused but oxygen quicly improved with supplemental oxygen and trilogy/BIPAP reapplied. Spouse and daugther state they are not leaving the hospital or discharging home due to this even though it has been explained that patient has chronic resp failue and COPD and hypoxia without oxygen will happen. CXR and labs are at patient baseline. Expressed importance of compliance with oxygen and trilogy. Patient was confused during the night and removed oxygen as well and also broke IV tubing and oxygen tubing per staff. No other concerns at present. Will repeat CT head due to cnofusion however this is likely related to hospital psychosis and resp failure. Patient's edema has resolved. - Past Medical Family Social History Past Med/Fam/Surg Hx: No changes since H&P Allergies: Allergies No Known Drug Allergies Allergy (Verified 06/03/21 17:48) - Review of Systems ROS: No change since H&P - Vital Signs and I&O's Vital Signs: Temperature 98.1 F Pulse Rate [Left Brachial] 54 Pulse Rate 88 Respiratory Rate 18 Blood Pressure [Right Arm] 130/60 Blood Pressure [Left Arm] 110/57 Blood Pressure 139/65 O2 Sat by Pulse Oximetry 100 Intake and Output: Intake & Output 07/27/21 07/28/21 07/29/21 07/30/21 23:59 23:59 23:59 23:59 Intake Total 2067 192 / 192 2262 / 2262 1277 / 1277 Output Total 900 / 900 100 / 100 200 / 200 Balance 2067 1022 / 1022 2162 / 2162 1077 / 1077 - Physical Exam Oriented: Not Oriented (Alert, confused) Eyes: Normal Ear: Normal Nose: Normal Throat: Normal Respiratory: Diminished, Rhonchi Cardiovascular: Normal : Normal Auscultation: Bowel Sounds: Normal Palpation: Normal Tenderness: Normal Skin: Bruising Musculoskeletal: Instability (Generalized weakness) Psychiatric: Normal Mood Description: Calm, Flat Affect: Flat Speech Pattern: Clear, Appropriate - Laboratory and Diagnostics Result Diagrams: 07/30/21 06:00 07/30/21 06:00 Labs: 07/27/21 18:47 Blood Blood Culture - Preliminary 07/27/21 18:35 Blood Blood Culture - Preliminary Laboratory WBC 8.3 X10^3/uL (3.6-10.0) 07/30/21 06:00 RBC 3.43 X10^6/uL (4.7-6.0) L 07/30/21 06:00 Hgb 10.3 g/dL (13.5-18.0) L 07/30/21 06:00 Hct 30.8 % (42.0-54.0) L 07/30/21 06:00 MCV 90.0 fL (80.0-100.0) 07/30/21 06:00 MCH 30.2 pg (27.0-34.0) 07/30/21 06:00 MCHC 33.5 g/dL (33.0-35.0) 07/30/21 06:00 RDW 16.3 % (11.6-16.5) 07/30/21 06:00 Plt Count 226 X10^3/uL (150.0-450.0) 07/30/21 06:00 Plt Count Comment Adequate (ADEQUATE) 07/30/21 06:00 MPV 8.1 fL (7.4-11.0) 07/30/21 06:00 Neut % (Auto) 96.1 % (42.0-75.0) H 07/30/21 06:00 Lymph % (Auto) 2.3 % (21.0-51.0) L 07/30/21 06:00 [place] % (Auto) 1.5 % (0.0-13.0) 07/30/21 06:00 Eos % (Auto) 0.0 % (0.9-2.9) L 07/30/21 06:00 Baso % (Auto) 0.1 % (0.2-1.0) L 07/30/21 06:00 Neut # (Auto) 8.0 x10^3/uL (2.2-4.8) H 07/30/21 06:00 Lymph # (Auto) 0.2 X10^3/uL (1.3-2.9) L 07/30/21 06:00 [place] # (Auto) 0.1 x10^3/uL (0.3-0.8) L 07/30/21 06:00 Eos # (Auto) 0.0 x10^3/uL (0.0-0.2) 07/30/21 06:00 Baso # (Auto) 0.0 X10^3/uL (0.0-0.1) 07/30/21 06:00 Absolute Nucleated RBC 0.0 /100WBC 07/30/21 06:00 Total Counted 100 07/30/21 06:00 Neutrophils % (Manual) 92 % (39-76) H 07/30/21 06:00 Band Neutrophils % 2 % (0-10) 07/30/21 06:00 Lymphocytes % (Manual) 5 % (13-43) L 07/30/21 06:00 Monocytes % (Manual) 1 % (4-9) L 07/30/21 06:00 Plt Morphology Comment Normal (NORMAL) 07/30/21 06:00 RBC Morphology Normal (NORMAL) 07/30/21 06:00 Sample Site Lrad 07/30/21 05:35 ABG pH 7.470 (7.35-7.45) H 07/30/21 05:35 ABG pCO2 73.0 mmHg (35.0-45.0) H* 07/30/21 05:35 ABG pO2 75.0 mmHg (80.0-100.0) L 07/30/21 05:35 ABG HCO3 53.1 mmol/L (22-26) H* 07/30/21 05:35 ABG O2 Saturation 96.0 % (90-100) 07/30/21 05:35 ABG Base Excess 24.9 mmol/L (-2.0-2.0) H 07/30/21 05:35 Jani Test Pos 07/30/21 05:35 A-a Gradient 76.0 mmHg 07/30/21 05:35 FiO2 34.0 07/30/21 05:35 Blood Gas Comments Alejandra well ms 07/30/21 05:35 Sodium 147 mmol/L (136-145) H 07/30/21 06:00 Corrected Sodium TNP 07/30/21 06:00 Potassium 3.4 mmol/L (3.5-5.1) L 07/30/21 06:00 Chloride 102 mmol/L (98-107) 07/30/21 06:00 Carbon Dioxide 40.4 mmol/L (21-32) H* 07/30/21 06:00 BUN 15 mg/dL (7-18) 07/30/21 06:00 Creatinine 0.42 mg/dL (0.70-1.30) L 07/30/21 06:00 Est GFR (MDRD) Af Amer > 60 (>60) 07/30/21 06:00 Est GFR (MDRD) Non-Af > 60 (>60) 07/30/21 06:00 Glucose 106 mg/dL (65-99) H 07/30/21 06:00 POC Glucose (mg/dL) 95 mg/dL (65-99) 07/30/21 16:34 Calcium 8.9 mg/dL (8.5-10.1) 07/30/21 06:00 Corrected Calcium 9.9 mg/dL (8.5-10.1) 07/30/21 06:00 Magnesium 2.0 mg/dL (1.7-2.9) 07/28/21 05:51 Total Bilirubin 0.30 mg/dL (0.2-1.0) 07/30/21 06:00 AST 23 Units/L (15-37) 07/30/21 06:00 ALT 19 Units/L (12-78) 07/30/21 06:00 Alkaline Phosphatase 66 Units/L (46-116) 07/30/21 06:00 Creatine Kinase 23 Units/L (39-308) L 07/30/21 01:37 CK-MB (CK-2) < 1.0 ng/mL (0-4.0) 07/30/21 01:37 CK/CKMB % Calc 4.4 % (<4) 07/30/21 01:37 Troponin I 0.02 ng/mL (0-1.5) 07/30/21 01:37 Total Protein 5.9 g/dL (6.4-8.2) L 07/30/21 06:00 Albumin 2.8 g/dL (3.4-5.0) L 07/30/21 06:00 Globulin 3.1 g/dL (2.5-4.5) 07/30/21 06:00 Albumin/Globulin Ratio 0.9 Ratio (1.1-2.1) L 07/30/21 06:00 Specimen Type Clean catch urine 07/26/21 23:21 Urine Color Yellow (YELLOW) 07/26/21 23:21 Urine Appearance Clear (CLEAR) 07/26/21 23:21 Urine pH 6.0 (5.0 - 8.0) 07/26/21 23:21 Ur Specific [place] 1.020 (1.000-1.030) 07/26/21 23:21 Urine Protein Negative (NEGATIVE) 07/26/21 23:21 Urine Glucose (UA) Negative (NEGATIVE) 07/26/21 23:21 Urine Ketones Negative (NEGATIVE) 07/26/21 23:21 Urine Occult Blood Negative (NEGATIVE) 07/26/21 23:21 Urine Nitrite Negative (NEGATIVE) 07/26/21 23:21 Urine Bilirubin Negative (NEGATIVE) 07/26/21 23:21 Urine Urobilinogen Normal (NORMAL) 07/26/21 23:21 Ur Leukocyte Esterase Negative (NEGATIVE) 07/26/21 23:21 SARS-CoV-2 (PCR) Negative (NEGATIVE) 07/27/21 00:35 Influenza Type A (PCR) Negative (NEGATIVE) 07/27/21 00:35 Influenza Type B (PCR) Negative (NEGATIVE) 07/27/21 00:35 RSV (PCR) Negative (NEGATIVE) 07/27/21 00:35 - Plan (1) Acute hypercapnic respiratory failure Status: Acute Plan: Repeat labs in am. Repeat ABG and CXR in am. See EMR for further orders. IV abx. Duo nebs. home meds resumed. SS to arrange trilogy and oxygen and any other home equipment needed. Discharge pending (2) Carbon dioxide narcosis Status: Acute (3) Acute confusion Status: Acute Plan: Likely secondary to above. 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
[2021-07-31] MEDS: XOPENEX 1.25 MG/3 ML NEBULE NEB SCH ×4 (01:45→16:23)
[2021-07-31] MEDS: SNACK - Diabetic Appropriate PO SCH ×2 (02:48→20:05)
[2021-07-31] MEDS: FLOMAX PO SCH ×2 (02:49→20:40)
[2021-07-31] MEDS: LOPRESSOR TAB 25 MG PO SCH ×4 (02:50→20:40)
[2021-07-31] MEDS: PEPCID TAB 40 MG PO SCH ×3 (02:54→20:40)
[2021-07-31] MEDS: RisperDAL TAB 1 MG PO SCH ×2 (02:55→20:40)
[2021-07-31 05:50] LABS: ABG ALLEN TEST POS; ABG BASE EXCESS 26.8 mmol/L (-2.0-2.0); ABG HCO3 54.9 mmol/L (22-26)
[2021-07-31 06:05] LABS: BASOPHILS % (AUTO) 0.1 % (0.2-1.0); HEMATOCRIT 31.1 % (42.0-54.0); HEMOGLOBIN 10.3 g/dL (13.5-18.0); LYMPHOCYTES # (AUTO) 0.3 X10^3/uL (1.3-2.9); MEAN CORPUSCULAR HEMOGLOBIN 29.6 pg (27.0-34.0); MEAN CORPUSCULAR HGB CONC 33.1 g/dL (33.0-35.0); MEAN CORPUSCULAR VOLUME 89.5 fL (80.0-100.0); MEAN PLATELET VOLUME 8.4 fL (7.4-11.0); MONOCYTES # (AUTO) 0.5 x10^3/uL (0.3-0.8); MONOCYTES % (AUTO) 7.7 % (0.0-13.0); NEUTROPHILS # (AUTO) 5.9 x10^3/uL (2.2-4.8); NEUTROPHILS % (AUTO) 88.2 % (42.0-75.0); PLATELET COUNT 217 X10^3/uL (150.0-450.0); RED BLOOD COUNT 3.48 X10^6/uL (4.7-6.0); RED CELL DISTRIBUTION WIDTH 15.7 % (11.6-16.5); WHITE BLOOD COUNT 6.6 X10^3/uL (3.6-10.0)
[2021-07-31 06:12] LABS: ALANINE AMINOTRANSFERASE 20 Units/L (12-78); ALBUMIN 2.7 g/dL (3.4-5.0); ALKALINE PHOSPHATASE 61 Units/L (46-116); ASPARTATE AMINO TRANSFERASE 21 Units/L (15-37); BLOOD UREA NITROGEN 18 mg/dL (7-18); CALCIUM 8.9 mg/dL (8.5-10.1); CHLORIDE 103 mmol/L (98-107); COR CA(FOR HYPOALB) 9.9 mg/dL (8.5-10.1); CREATININE 0.41 mg/dL (0.70-1.30); MAGNESIUM 2.5 mg/dL (1.7-2.9); TOTAL PROTEIN 5.6 g/dL (6.4-8.2); eGFR NON BLACK RACES > 60 (>60)
[2021-07-31 06:17] LABS: CARBON DIOXIDE > 45.0 mmol/L (21-32); SODIUM 150 mmol/L (136-145)
[2021-07-31] MEDS: NS 1,000 ML IV 1,000 ML IV SCH (07:59)
[2021-07-31] MEDS: PULMICORT NEB TX 0.5 MG NEB SCH ×2 (09:15→21:00)
[2021-07-31 10:27] LABS: BILIRUBIN,URINE NEGATIVE (NEGATIVE); BLOOD/HEMOGLOBIN,URINE NEGATIVE (NEGATIVE); GLUCOSE, URINE NEGATIVE (NEGATIVE); KETONES,URINE NEGATIVE (NEGATIVE); LEUKOCYTE ESTERASE ,URINE NEGATIVE (NEGATIVE); NITRITES,URINE NEGATIVE (NEGATIVE); PH,URINE 6.5 (5.0 - 8.0); PROTEIN,URINE NEGATIVE (NEGATIVE); UROBILINOGEN,URINE NORMAL (NORMAL)
[2021-07-31 10:29] LABS: APPEARANCE,URINE CLEAR (CLEAR); COLOR,URINE YELLOW (YELLOW)
[2021-07-31] MEDS ORDERED: NS 1/2 500 ML IV 500 ML IV ONE (12:07)
--- NOTE | 2021-07-31 12:17 | PCM.PROG ---
Progress Note Progress Note for Day of Date of Exam: 07/31/21 Subjective Subjective: Patient seen at bedside, no events overnight. Yesterday afternoon, patient carter an episode where he desaturated after eating and has to be placed on NRB. Patient was supposed to be discharged home yesterday with Trilogy but had to be kept due to requiring more oxygen. He was placed on Trilogy but kept removing the mask and was agitated so morphine was given. CXR did not show any pneumonia or new process, chronic COPD changes were noted. Patient has been having intermittent confusion due to CO2 retention, CT brain on admission did not show any acute process. Family had requested repeat CT due to AMS. Patient rested well all night. He is asleep this morning on trilogy. family at bedside, updated on current plan. Labs and imaging reviewed Plan: Wean off Trilogy/Bipap and place on NC as tolerated. DC morphine due to sedation. Change IVF to 1/2 NS with KCl. Repeat BMP at 5 pm. Continue IV Rocephin and Azithromycin, continue Solumedrol. Continue Trilogy prn. Monitor AM labs/imaging. Past Medical Family Social History Past Med/Fam/Surg Hx: No changes since H&P Allergies: Allergies No Known Drug Allergies Allergy (Verified 06/03/21 17:48) Review of Systems ROS: No change since H&P Vital Signs and I&O's Vital Signs: Temperature 97.0 F Pulse Rate [Left Brachial] 98 Pulse Rate 100 Respiratory Rate 19 Blood Pressure [Right Arm] 130/60 Blood Pressure [Left Arm] 136/64 Blood Pressure 139/65 O2 Sat by Pulse Oximetry 97 Intake and Output: Intake & Output 07/28/21 07/29/21 07/30/21 07/31/21 23:59 23:59 23:59 23:59 Intake Total 1922 / 1922 2262 / 2262 1517 / 1517 50 / 50 Output Total 900 / 900 100 / 100 200 / 200 Balance 1022 / 1022 2162 / 2162 1317 / 1317 50 / 50 Physical Exam Oriented: Unable to test Eyes: Normal Ear: Normal Nose: Normal Throat: Normal Respiratory: Generalized and Diminished Cardiovascular: Normal Auscultation: Bowel Sounds: Normal Tenderness: Normal Skin: Bruising Musculoskeletal: Instability (Generalized weakness) Psychiatric: Normal Speech Pattern: Artificially Ventilated (Bipap ) Laboratory and Diagnostics Result Diagrams: 07/31/21 05:16 07/31/21 05:16 Labs: 07/27/21 18:47 Blood Blood Culture - Preliminary 07/27/21 18:35 Blood Blood Culture - Preliminary Laboratory WBC 6.6 X10^3/uL (3.6-10.0) 07/31/21 05:16 RBC 3.48 X10^6/uL (4.7-6.0) L 07/31/21 05:16 Hgb 10.3 g/dL (13.5-18.0) L 07/31/21 05:16 Hct 31.1 % (42.0-54.0) L 07/31/21 05:16 MCV 89.5 fL (80.0-100.0) 07/31/21 05:16 MCH 29.6 pg (27.0-34.0) 07/31/21 05:16 MCHC 33.1 g/dL (33.0-35.0) 07/31/21 05:16 RDW 15.7 % (11.6-16.5) 07/31/21 05:16 Plt Count 217 X10^3/uL (150.0-450.0) 07/31/21 05:16 Plt Count Comment Adequate (ADEQUATE) 07/30/21 06:00 MPV 8.4 fL (7.4-11.0) 07/31/21 05:16 Neut % (Auto) 88.2 % (42.0-75.0) H 07/31/21 05:16 Lymph % (Auto) 4.0 % (21.0-51.0) L 07/31/21 05:16 [place] % (Auto) 7.7 % (0.0-13.0) 07/31/21 05:16 Eos % (Auto) 0.0 % (0.9-2.9) L 07/31/21 05:16 Baso % (Auto) 0.1 % (0.2-1.0) L 07/31/21 05:16 Neut # (Auto) 5.9 x10^3/uL (2.2-4.8) H 07/31/21 05:16 Lymph # (Auto) 0.3 X10^3/uL (1.3-2.9) L 07/31/21 05:16 [place] # (Auto) 0.5 x10^3/uL (0.3-0.8) 07/31/21 05:16 Eos # (Auto) 0.0 x10^3/uL (0.0-0.2) 07/31/21 05:16 Baso # (Auto) 0.0 X10^3/uL (0.0-0.1) 07/31/21 05:16 Absolute Nucleated RBC 0.1 /100WBC 07/31/21 05:16 Total Counted 100 07/30/21 06:00 Neutrophils % (Manual) 92 % (39-76) H 07/30/21 06:00 Band Neutrophils % 2 % (0-10) 07/30/21 06:00 Lymphocytes % (Manual) 5 % (13-43) L 07/30/21 06:00 Monocytes % (Manual) 1 % (4-9) L 07/30/21 06:00 Plt Morphology Comment Normal (NORMAL) 07/30/21 06:00 RBC Morphology Normal (NORMAL) 07/30/21 06:00 Sample Site Lrad 07/31/21 05:44 ABG pH 7.490 (7.35-7.45) H 07/31/21 05:44 ABG pCO2 72.0 mmHg (35.0-45.0) H* 07/31/21 05:44 ABG pO2 77.0 mmHg (80.0-100.0) L 07/31/21 05:44 ABG HCO3 54.9 mmol/L (22-26) H* 07/31/21 05:44 ABG O2 Saturation 96.0 % (90-100) 07/31/21 05:44 ABG Base Excess 26.8 mmol/L (-2.0-2.0) H 07/31/21 05:44 Jani Test Pos 07/31/21 05:44 A-a Gradient 90.0 mmHg 07/31/21 05:44 FiO2 36.0 07/31/21 05:44 Blood Gas Comments Alejandra well ms 07/31/21 05:44 Sodium 150 mmol/L (136-145) H* 07/31/21 05:16 Corrected Sodium TNP 07/31/21 05:16 Potassium 3.0 mmol/L (3.5-5.1) L* 07/31/21 05:16 Chloride 103 mmol/L (98-107) 07/31/21 05:16 Carbon Dioxide > 45.0 mmol/L (21-32) H* 07/31/21 05:16 BUN 18 mg/dL (7-18) 07/31/21 05:16 Creatinine 0.41 mg/dL (0.70-1.30) L 07/31/21 05:16 Est GFR (MDRD) Af Amer > 60 (>60) 07/31/21 05:16 Est GFR (MDRD) Non-Af > 60 (>60) 07/31/21 05:16 Glucose 94 mg/dL (65-99) 07/31/21 05:16 POC Glucose (mg/dL) 95 mg/dL (65-99) 07/31/21 06:04 Calcium 8.9 mg/dL (8.5-10.1) 07/31/21 05:16 Corrected Calcium 9.9 mg/dL (8.5-10.1) 07/31/21 05:16 Magnesium 2.5 mg/dL (1.7-2.9) 07/31/21 05:16 Total Bilirubin 0.30 mg/dL (0.2-1.0) 07/31/21 05:16 AST 21 Units/L (15-37) 07/31/21 05:16 ALT 20 Units/L (12-78) 07/31/21 05:16 Alkaline Phosphatase 61 Units/L (46-116) 07/31/21 05:16 Creatine Kinase 23 Units/L (39-308) L 07/30/21 01:37 CK-MB (CK-2) < 1.0 ng/mL (0-4.0) 07/30/21 01:37 CK/CKMB % Calc 4.4 % (<4) 07/30/21 01:37 Troponin I 0.02 ng/mL (0-1.5) 07/30/21 01:37 Total Protein 5.6 g/dL (6.4-8.2) L 07/31/21 05:16 Albumin 2.7 g/dL (3.4-5.0) L 07/31/21 05:16 Globulin 2.9 g/dL (2.5-4.5) 07/31/21 05:16 Albumin/Globulin Ratio 0.9 Ratio (1.1-2.1) L 07/31/21 05:16 Specimen Type Catherized urine 07/31/21 10:09 Urine Color Yellow (YELLOW) 07/31/21 10:09 Urine Appearance Clear (CLEAR) 07/31/21 10:09 Urine pH 6.5 (5.0 - 8.0) 07/31/21 10:09 Ur Specific [place] 1.010 (1.000-1.030) 07/31/21 10:09 Urine Protein Negative (NEGATIVE) 07/31/21 10:09 Urine Glucose (UA) Negative (NEGATIVE) 07/31/21 10:09 Urine Ketones Negative (NEGATIVE) 07/31/21 10:09 Urine Occult Blood Negative (NEGATIVE) 07/31/21 10:09 Urine Nitrite Negative (NEGATIVE) 07/31/21 10:09 Urine Bilirubin Negative (NEGATIVE) 07/31/21 10:09 Urine Urobilinogen Normal (NORMAL) 07/31/21 10:09 Ur Leukocyte Esterase Negative (NEGATIVE) 07/31/21 10:09 SARS-CoV-2 (PCR) Negative (NEGATIVE) 07/27/21 00:35 Influenza Type A (PCR) Negative (NEGATIVE) 07/27/21 00:35 Influenza Type B (PCR) Negative (NEGATIVE) 07/27/21 00:35 RSV (PCR) Negative (NEGATIVE) 07/27/21 00:35 Plan (1) Hypokalemia: Status: Acute (2) Hypernatremia: Status: Acute (3) Acute hypercapnic respiratory failure: Status: Acute (4) Carbon dioxide narcosis: Status: Acute (5) Acute confusion: Status: Acute Plan: Likely secondary to above Repeat CT head (6) Acute exacerbation of chronic obstructive pulmonary disease: Status: Acute (7) Acute respiratory failure with hypoxia and hypercarbia: Status: Acute (8) Chronic low back pain: Status: Chronic Qualifiers: Sciatica presence: without sciatica (9) ARTIS (obstructive sleep apnea): Status: Acute Plan: Triology while sleeping (10) 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
[2021-07-31] MEDS ORDERED: D5W 1,000 ML IV 1,000 ML IV ONE (12:31)
[2021-07-31] MEDS: ROCEPHIN VIAL 1 GRAM 1 G in NS 100 ML IV + SPIKE MINIBAG* 100 ML IV SCH (12:44)
[2021-07-31] MEDS: ZITHROMAX INJ 500 MG VIAL 500 MG in NS 250 ML IV 250 ML IV SCH (12:44)
[2021-07-31] MEDS: SOLU-Medrol 40 MG VIAL IVP SCH ×2 (12:45→21:30)
[2021-07-31] MEDS: D5W 1,000 ML IV 1,000 ML IV SCH (12:45)
[2021-07-31] MEDS: LASIX PO SCH ×2 (14:31→15:10)
[2021-07-31] MEDS: CARDIZEM CD 120 MG 24-HR PO SCH (14:31)
[2021-07-31] MEDS: LOVENOX INJ 40 MG SYR SC SCH (14:45)
[2021-07-31] MEDS: THEO-24 CAP 200 MG (24-HR) PO SCH (14:45)
[2021-07-31] MEDS: PROSCAR PO SCH (14:45)
[2021-07-31] MEDS: SINGULAIR TAB 10 MG PO SCH (14:45)
[2021-07-31] MEDS: NovoLIN R (or HumuLIN R) SUBCUT PRN (17:00)
[2021-07-31 17:26] LABS: BLOOD UREA NITROGEN 18 mg/dL (7-18); CALCIUM 8.6 mg/dL (8.5-10.1); CHLORIDE 103 mmol/L (98-107); COR NA(FOR HYPERGLY) 149 mmol/L (136-145); CREATININE 0.59 mg/dL (0.70-1.30); SODIUM 146 mmol/L (136-145); eGFR NON BLACK RACES > 60 (>60)
[2021-07-31 17:28] LABS: CARBON DIOXIDE 40.6 mmol/L (21-32)
[2021-08-01] MEDS: XOPENEX 1.25 MG/3 ML NEBULE NEB SCH ×5 (00:15→17:18)
[2021-08-01] MEDS: D5W 1,000 ML IV 1,000 ML IV SCH ×3 (05:35→23:15)
[2021-08-01 06:21] LABS: BASOPHILS % (AUTO) 0 % (0.2-1.0); HEMATOCRIT 27.8 % (42.0-54.0); HEMOGLOBIN 9.5 g/dL (13.5-18.0); LYMPHOCYTES # (AUTO) 0.1 X10^3/uL (1.3-2.9); MEAN CORPUSCULAR HEMOGLOBIN 30.6 pg (27.0-34.0); MEAN CORPUSCULAR HGB CONC 34.1 g/dL (33.0-35.0); MEAN CORPUSCULAR VOLUME 89.6 fL (80.0-100.0); MEAN PLATELET VOLUME 8.2 fL (7.4-11.0); MONOCYTES # (AUTO) 0.1 x10^3/uL (0.3-0.8); MONOCYTES % (AUTO) 1.9 % (0.0-13.0); NEUTROPHILS # (AUTO) 6.3 x10^3/uL (2.2-4.8); NEUTROPHILS % (AUTO) 96.1 % (42.0-75.0); PLATELET COUNT 206 X10^3/uL (150.0-450.0); RED CELL DISTRIBUTION WIDTH 15.6 % (11.6-16.5); WHITE BLOOD COUNT 6.6 X10^3/uL (3.6-10.0)
[2021-08-01 06:28] LABS: BLOOD UREA NITROGEN 19 mg/dL (7-18); CALCIUM 8.5 mg/dL (8.5-10.1); CHLORIDE 101 mmol/L (98-107); COR NA(FOR HYPERGLY) 146 mmol/L (136-145); CREATININE 0.49 mg/dL (0.70-1.30); SODIUM 145 mmol/L (136-145); eGFR NON BLACK RACES > 60 (>60)
[2021-08-01 06:32] LABS: CARBON DIOXIDE 43.2 mmol/L (21-32)
--- NOTE | 2021-08-01 06:46 | RAD ---
CHEST, 1 VIEWHISTORY: HYPOXIAStudy: Single view of the chest.Comparison:July 30, 2021Findings:The cardiomediastinal silhouette is normal. No change in the appearance of bilateral interstitial prominence and COPD. Osseous structures demonstrate no acute abnormality.IMPRESSION:1. No change from prior.Electronically signed by: MIKE SAUER (Aug 01, 2021 06:44:27)
[2021-08-01 07:12] LABS: BAND NEUTROPHILS % 2 % (0-10); PLATELET MORPHOLOGY COMMENT NORMAL (NORMAL)
[2021-08-01] MEDS: PULMICORT NEB TX 0.5 MG NEB SCH ×2 (08:35→20:30)
[2021-08-01] MEDS: LASIX PO SCH (08:55)
[2021-08-01] MEDS: CARDIZEM CD 120 MG 24-HR PO SCH (08:55)
[2021-08-01] MEDS: LOVENOX INJ 40 MG SYR SC SCH (08:56)
[2021-08-01] MEDS: PEPCID TAB 40 MG PO SCH ×2 (08:56→20:23)
[2021-08-01] MEDS: PROSCAR PO SCH (08:56)
[2021-08-01] MEDS: LOPRESSOR TAB 25 MG PO SCH ×2 (08:56→20:22)
[2021-08-01] MEDS: ROCEPHIN VIAL 1 GRAM 1 G in NS 100 ML IV + SPIKE MINIBAG* 100 ML IV SCH (08:56)
[2021-08-01] MEDS: THEO-24 CAP 200 MG (24-HR) PO SCH (08:57)
[2021-08-01] MEDS: SOLU-Medrol 40 MG VIAL IVP SCH ×2 (08:57→20:23)
[2021-08-01] MEDS: SINGULAIR TAB 10 MG PO SCH (08:57)
[2021-08-01] MEDS: ZITHROMAX INJ 500 MG VIAL 500 MG in NS 250 ML IV 250 ML IV SCH (09:16)
--- NOTE | 2021-08-01 20:06 | PCM.PROG ---
Progress Note Progress Note for Day of Date of Exam: 08/01/21 Subjective Subjective: Patient seen at bedside, no events overnight. Patient used Trilogy overnight and was placed on NRB this morning. He is awake, appears more alert today and able to answer questions and follow commands. He also ate his meals yesterday and today. Labs and imaging reviewed Plan: Use Trilogy prn and qhS. Continue NRB. Continue IV Rocephin and Azithromycin, continue Solumedrol. Monitor AM labs/imaging. Past Medical Family Social History Past Med/Fam/Surg Hx: No changes since H&P Allergies: Allergies No Known Drug Allergies Allergy (Verified 06/03/21 17:48) Review of Systems ROS: No change since H&P Vital Signs and I&O's Vital Signs: Temperature 98.1 F Pulse Rate [Left Brachial] 78 Pulse Rate 69 Respiratory Rate 22 Blood Pressure [Right Arm] 109/59 Blood Pressure [Left Arm] 117/69 Blood Pressure 139/65 O2 Sat by Pulse Oximetry 96 Intake and Output: Intake & Output 07/29/21 07/30/21 07/31/21 08/01/21 23:59 23:59 23:59 23:59 Intake Total 2262 / 2262 1517 / 1517 2457 / 2457 2066 / 2066 Output Total 100 / 100 200 / 200 2400 / 2400 620 / 620 Balance 2162 / 2162 1317 / 1317 57 / 57 1446 / 1446 Physical Exam Oriented: Unable to test Eyes: Normal Ear: Normal Nose: Normal Throat: Normal Respiratory: Generalized and Diminished Cardiovascular: Normal Auscultation: Bowel Sounds: Normal Tenderness: Normal Skin: Decreased Turgur and Bruising Musculoskeletal: Instability (Generalized weakness) Psychiatric: Normal Mood Description: Calm Speech Pattern: Clear, Appropriate and Delayed Laboratory and Diagnostics Result Diagrams: 08/01/21 05:26 08/01/21 05:26 Labs: 07/27/21 18:47 Blood Blood Culture - Preliminary 07/27/21 18:35 Blood Blood Culture - Preliminary Laboratory WBC 6.6 X10^3/uL (3.6-10.0) 08/01/21 05:26 RBC 3.10 X10^6/uL (4.7-6.0) L 08/01/21 05:26 Hgb 9.5 g/dL (13.5-18.0) L 08/01/21 05:26 Hct 27.8 % (42.0-54.0) L 08/01/21 05:26 MCV 89.6 fL (80.0-100.0) 08/01/21 05:26 MCH 30.6 pg (27.0-34.0) 08/01/21 05:26 MCHC 34.1 g/dL (33.0-35.0) 08/01/21 05:26 RDW 15.6 % (11.6-16.5) 08/01/21 05:26 Plt Count 206 X10^3/uL (150.0-450.0) 08/01/21 05:26 Plt Count Comment Adequate (ADEQUATE) 08/01/21 05:26 MPV 8.2 fL (7.4-11.0) 08/01/21 05:26 Neut % (Auto) 96.1 % (42.0-75.0) H 08/01/21 05:26 Lymph % (Auto) 2.0 % (21.0-51.0) L 08/01/21 05:26 [place] % (Auto) 1.9 % (0.0-13.0) 08/01/21 05:26 Eos % (Auto) 0.0 % (0.9-2.9) L 08/01/21 05:26 Baso % (Auto) 0 % (0.2-1.0) L 08/01/21 05:26 Neut # (Auto) 6.3 x10^3/uL (2.2-4.8) H 08/01/21 05:26 Lymph # (Auto) 0.1 X10^3/uL (1.3-2.9) L 08/01/21 05:26 [place] # (Auto) 0.1 x10^3/uL (0.3-0.8) L 08/01/21 05:26 Eos # (Auto) 0.0 x10^3/uL (0.0-0.2) 08/01/21 05:26 Baso # (Auto) 0.0 X10^3/uL (0.0-0.1) 08/01/21 05:26 Absolute Nucleated RBC 0.0 /100WBC 08/01/21 05:26 Total Counted 100 08/01/21 05:26 Neutrophils % (Manual) 91 % (39-76) H 08/01/21 05:26 Band Neutrophils % 2 % (0-10) 08/01/21 05:26 Lymphocytes % (Manual) 3 % (13-43) L 08/01/21 05:26 Monocytes % (Manual) 4 % (4-9) 08/01/21 05:26 Plt Morphology Comment Normal (NORMAL) 08/01/21 05:26 RBC Morphology Normal (NORMAL) 08/01/21 05:26 Sample Site Lrad 07/31/21 05:44 ABG pH 7.490 (7.35-7.45) H 07/31/21 05:44 ABG pCO2 72.0 mmHg (35.0-45.0) H* 07/31/21 05:44 ABG pO2 77.0 mmHg (80.0-100.0) L 07/31/21 05:44 ABG HCO3 54.9 mmol/L (22-26) H* 07/31/21 05:44 ABG O2 Saturation 96.0 % (90-100) 07/31/21 05:44 ABG Base Excess 26.8 mmol/L (-2.0-2.0) H 07/31/21 05:44 Jani Test Pos 07/31/21 05:44 A-a Gradient 90.0 mmHg 07/31/21 05:44 FiO2 36.0 07/31/21 05:44 Blood Gas Comments Alejandra well ms 07/31/21 05:44 Sodium 145 mmol/L (136-145) 08/01/21 05:26 Corrected Sodium 146 mmol/L (136-145) H 08/01/21 05:26 Potassium 3.7 mmol/L (3.5-5.1) 08/01/21 05:26 Chloride 101 mmol/L (98-107) 08/01/21 05:26 Carbon Dioxide 43.2 mmol/L (21-32) H* 08/01/21 05:26 BUN 19 mg/dL (7-18) H 08/01/21 05:26 Creatinine 0.49 mg/dL (0.70-1.30) L 08/01/21 05:26 Est GFR (MDRD) Af Amer > 60 (>60) 08/01/21 05:26 Est GFR (MDRD) Non-Af > 60 (>60) 08/01/21 05:26 Glucose 155 mg/dL (65-99) H 08/01/21 05:26 POC Glucose (mg/dL) 140 mg/dL (65-99) H 08/01/21 16:43 Calcium 8.5 mg/dL (8.5-10.1) 08/01/21 05:26 Corrected Calcium 9.9 mg/dL (8.5-10.1) 07/31/21 05:16 Magnesium 2.5 mg/dL (1.7-2.9) 07/31/21 05:16 Total Bilirubin 0.30 mg/dL (0.2-1.0) 07/31/21 05:16 AST 21 Units/L (15-37) 07/31/21 05:16 ALT 20 Units/L (12-78) 07/31/21 05:16 Alkaline Phosphatase 61 Units/L (46-116) 07/31/21 05:16 Creatine Kinase 23 Units/L (39-308) L 07/30/21 01:37 CK-MB (CK-2) < 1.0 ng/mL (0-4.0) 07/30/21 01:37 CK/CKMB % Calc 4.4 % (<4) 07/30/21 01:37 Troponin I 0.02 ng/mL (0-1.5) 07/30/21 01:37 Total Protein 5.6 g/dL (6.4-8.2) L 07/31/21 05:16 Albumin 2.7 g/dL (3.4-5.0) L 07/31/21 05:16 Globulin 2.9 g/dL (2.5-4.5) 07/31/21 05:16 Albumin/Globulin Ratio 0.9 Ratio (1.1-2.1) L 07/31/21 05:16 Specimen Type Catherized urine 07/31/21 10:09 Urine Color Yellow (YELLOW) 07/31/21 10:09 Urine Appearance Clear (CLEAR) 07/31/21 10:09 Urine pH 6.5 (5.0 - 8.0) 07/31/21 10:09 Ur Specific [place] 1.010 (1.000-1.030) 07/31/21 10:09 Urine Protein Negative (NEGATIVE) 07/31/21 10:09 Urine Glucose (UA) Negative (NEGATIVE) 07/31/21 10:09 Urine Ketones Negative (NEGATIVE) 07/31/21 10:09 Urine Occult Blood Negative (NEGATIVE) 07/31/21 10:09 Urine Nitrite Negative (NEGATIVE) 07/31/21 10:09 Urine Bilirubin Negative (NEGATIVE) 07/31/21 10:09 Urine Urobilinogen Normal (NORMAL) 07/31/21 10:09 Ur Leukocyte Esterase Negative (NEGATIVE) 07/31/21 10:09 SARS-CoV-2 (PCR) Negative (NEGATIVE) 07/27/21 00:35 Influenza Type A (PCR) Negative (NEGATIVE) 07/27/21 00:35 Influenza Type B (PCR) Negative (NEGATIVE) 07/27/21 00:35 RSV (PCR) Negative (NEGATIVE) 07/27/21 00:35 Plan (1) Hypokalemia: Status: Acute (2) Hypernatremia: Status: Acute (3) Acute hypercapnic respiratory failure: Status: Acute (4) Carbon dioxide narcosis: Status: Acute (5) Acute confusion: Status: Acute Plan: Likely secondary to above Repeat CT head (6) Acute exacerbation of chronic obstructive pulmonary disease: Status: Acute (7) Acute respiratory failure with hypoxia and hypercarbia: Status: Acute (8) Chronic low back pain: Status: Chronic Qualifiers: Sciatica presence: without sciatica (9) ARTIS (obstructive sleep apnea): Status: Acute Plan: Triology while sleeping (10) 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
[2021-08-01] MEDS: SNACK - Diabetic Appropriate PO SCH (20:22)
[2021-08-01] MEDS: FLOMAX PO SCH (20:22)
[2021-08-01] MEDS: RisperDAL TAB 1 MG PO SCH (20:23)
[2021-08-02] MEDS: XOPENEX 1.25 MG/3 ML NEBULE NEB SCH ×2 (00:18→05:37)
[2021-08-02] MEDS: D5W 1,000 ML IV 1,000 ML IV SCH (05:19)
[2021-08-02 06:25] LABS: BASOPHILS % (AUTO) 0.1 % (0.2-1.0); HEMATOCRIT 27.3 % (42.0-54.0); HEMOGLOBIN 9.2 g/dL (13.5-18.0); LYMPHOCYTES # (AUTO) 0.2 X10^3/uL (1.3-2.9); LYMPHOCYTES % (AUTO) 2.3 % (21.0-51.0); MEAN CORPUSCULAR HEMOGLOBIN 30.3 pg (27.0-34.0); MEAN CORPUSCULAR HGB CONC 33.9 g/dL (33.0-35.0); MEAN CORPUSCULAR VOLUME 89.4 fL (80.0-100.0); MEAN PLATELET VOLUME 8.7 fL (7.4-11.0); MONOCYTES # (AUTO) 0.2 x10^3/uL (0.3-0.8); MONOCYTES % (AUTO) 2.5 % (0.0-13.0); NEUTROPHILS # (AUTO) 7.7 x10^3/uL (2.2-4.8); NEUTROPHILS % (AUTO) 95.1 % (42.0-75.0); PLATELET COUNT 185 X10^3/uL (150.0-450.0); RED BLOOD COUNT 3.06 X10^6/uL (4.7-6.0); RED CELL DISTRIBUTION WIDTH 15.6 % (11.6-16.5); WHITE BLOOD COUNT 8.1 X10^3/uL (3.6-10.0)
[2021-08-02 06:30] LABS: BLOOD UREA NITROGEN 20 mg/dL (7-18); CALCIUM 8.1 mg/dL (8.5-10.1); CHLORIDE 96 mmol/L (98-107); COR NA(FOR HYPERGLY) 142 mmol/L (136-145); CREATININE 0.45 mg/dL (0.70-1.30); SODIUM 141 mmol/L (136-145); eGFR NON BLACK RACES > 60 (>60)
[2021-08-02 06:42] LABS: CARBON DIOXIDE 41.5 mmol/L (21-32)
[2021-08-02 07:40] LABS: BAND NEUTROPHILS % 4 % (0-10); PLATELET MORPHOLOGY COMMENT NORMAL (NORMAL)
[2021-08-02] MEDS: PULMICORT NEB TX 0.5 MG NEB SCH (08:22)
[2021-08-02] MEDS: PEPCID TAB 40 MG PO SCH (10:00)
[2021-08-02] MEDS: SINGULAIR TAB 10 MG PO SCH (10:00)
[2021-08-02] MEDS: THEO-24 CAP 200 MG (24-HR) PO SCH (10:00)
[2021-08-02] MEDS: SOLU-Medrol 40 MG VIAL IVP SCH (10:00)
[2021-08-02] MEDS: ROCEPHIN VIAL 1 GRAM 1 G in NS 100 ML IV + SPIKE MINIBAG* 100 ML IV SCH (10:00)
[2021-08-02] MEDS: PROSCAR PO SCH (10:00)
[2021-08-02] MEDS: LASIX PO SCH (10:29)
[2021-08-02] MEDS: LOVENOX INJ 40 MG SYR SC SCH (10:30)
[2021-08-02] MEDS: CARDIZEM CD 120 MG 24-HR PO SCH (11:06)
[2021-08-02] MEDS: LOPRESSOR TAB 25 MG PO SCH (11:07)
[2021-08-02 12:13] VITALS: BP 122/56
--- NOTE | 2021-08-02 15:55 | RAD ---
HISTORYACUTE HYPERCEPNIC HYPOXIC RESPIRATORY FAILURE, CO2 NARCOSISSTUDYCHEST, 1 [id number] opacity in the lung basis could be atelectasis or pneumonia. This is new since the prior study.There are also emphysematous changes, mostly in the upper lungs. No pleural effusion.Heart size is normal.Bones are unremarkable.EKG leads are noted.IMPRESSION1. New basilar atelectasis or pneumoniaElectronically signed by: Gunner Haas (Aug 02, 2021 15:54:38)
== END 2021-08-02 13:15 | disposition home health service (06) | DRG 189 ==
LOC: ER 21:44 → MED/SURG 07-27 02:15
PROVIDERS: ADMIT Internal Medicine; ATTEND Internal Medicine